=== PATIENT | female | born 1970 | race African-American/Black ===

== ENCOUNTER 2016-07-16 12:24 | Emergency (ER) | payer OTHER ==
[~2016-07-16] VITALS: Ht 172.7 cm; Wt 129.3 kg
[~2016-07-16 12:24] MED LIST: CIPR-173 PO; PRO20T; TRAM50TA2 PO
[2016-07-16 14:05] LABS: Basophils # (auto) 0.1 uL; Basophils % (auto) 0.8 % (0.0-2.0); Eosinophils # (auto) 0.2 uL; Eosinophils % (auto) 2.6 % (0.0-7.0); Hematocrit 39.1 % (36.0-46.0); Hemoglobin 12.9 g/dL (12.2-16.2); Lymphocytes # (auto) 2.6 uL; Lymphocytes % (auto) 39.8 % (10.0-50.0); Mean Corpuscular Hemoglobin 27.6 pg (28.0-32.0); Mean Corpuscular Hgb Conc. 32.9 g/dL (32.0-36.0); Mean Corpuscular Volume 83.7 fL (80.0-100.0); Mean Platelet Volume 7.9 fL (7.4-10.4); Monocytes # (auto) 0.3 uL; Monocytes % (auto) 5.2 % (0.0-12.0); Neutrophils # (auto) 3.3 uL; Neutrophils % (auto) 51.6 % (37.0-80.0); Platelet Count (auto) 529 10^3/uL (140-450); Red Cell Distribution Width 15.5 % (11.6-16.0); White Blood Cell 6.4 10^3/uL (4.4-10.8)
[2016-07-16 14:26] LABS: BUN/Creatinine Ratio 12.1; Calcium 8.9 mg/dL (8.5-10.1); Potassium 3.9 mmol/L (3.5-5.1)
[2016-07-17] VITALS: BP 155/95
== END 2016-07-17 01:01 | disposition home or self-care (01) ==
LOC: ER 12:24
DX: M79.7 Fibromyalgia (principal); M54.9 Dorsalgia, unspecified; G89.29 Other chronic pain; I10 Essential (primary) hypertension; J45.909 Unspecified asthma, uncomplicated; M19.90 Unspecified osteoarthritis, unspecified site; Z98.51 Tubal ligation status
CPT/HCPCS: 36415; 80048; 85025

== ENCOUNTER 2016-09-25 21:00 | Emergency (ER) | payer OTHER ==
[~2016-09-25] VITALS: Ht 175.3 cm; Wt 131.5 kg
[2016-09-25 21:15] VITALS: BP 140/94
[2016-09-25] MEDS ORDERED: IBUPROFEN 600 MG TAB PO ONE (22:30)
== END 2016-09-25 22:36 | disposition home or self-care (01) ==
LOC: ER 21:05
DX: L73.9 Follicular disorder, unspecified (principal); I10 Essential (primary) hypertension; J45.909 Unspecified asthma, uncomplicated

== ENCOUNTER 2018-07-16 18:20 | Emergency (ER) | payer OTHER ==
[~2018-07-16] VITALS: Ht 175.3 cm; Wt 90.7 kg
[2018-07-16 18:45] VITALS: BP 172/84
[2018-07-16] MEDS ORDERED: NAPROXEN 500 MG TAB PO ONE (22:00)
[2018-07-16 22:09] LABS: Basophils % (auto) 0.7 % (0.0-2.0); Eosinophils # (auto) 0.2 uL; Lymphocytes # (auto) 2.2 uL; Monocytes # (auto) 0.5 uL
[2018-07-16 22:11] LABS: Basophils # (auto) 0.1 uL; Eosinophils % (auto) 2.1 % (0.0-7.0); Hematocrit 35.4 % (36.0-46.0); Hemoglobin 11.5 g/dL (12.2-16.2); Lymphocytes % (auto) 30.7 % (10.0-50.0); Mean Corpuscular Hemoglobin 26.6 pg (28.0-32.0); Mean Corpuscular Hgb Conc. 32.6 g/dL (32.0-36.0); Mean Corpuscular Volume 81.6 fL (80.0-100.0); Monocytes % (auto) 6.5 % (0.0-12.0); Neutrophils # (auto) 4.3 uL; Platelet Count (auto) 444 10^3/uL (140-450); Red Blood Cells 4.34 10^6/uL (4.0-5.20); Red Cell Distribution Width 16.1 % (11.8-14.3); White Blood Cell 7.1 10^3/uL (4.4-10.8)
[2018-07-16 22:30] LABS: Albumin 3.2 g/dL (3.4-5.0); BUN/Creatinine Ratio 16.7; Calcium 8.7 mg/dL (8.5-10.1); Potassium 3.9 mmol/L (3.5-5.1); Uric Acid 5.3 mg/dL (2.6-6.0)
[2018-07-16 22:32] LABS: Bilirubin, Total 0.1 mg/dL (0.2-1.0); Total Protein 7.9 g/dL (6.4-8.2)
== END 2018-07-16 23:33 | disposition home or self-care (01) ==
LOC: ER 18:20
DX: M79.662 Pain in left lower leg (principal); M79.661 Pain in right lower leg; J45.909 Unspecified asthma, uncomplicated; I10 Essential (primary) hypertension; Z98.51 Tubal ligation status; Z79.899 Other long term (current) drug therapy
CPT/HCPCS: 36415; 73600; 80053; 84550; 85025; 93970

== ENCOUNTER 2019-05-10 10:54 | Emergency (ER) | payer OTHER ==
[~2019-05-10] VITALS: Ht 175.3 cm; Wt 131.5 kg
[2019-05-10 11:20] VITALS: BP 163/92
[2019-05-10] MEDS ORDERED: KETOROLAC TROMETH 60MG/2ML VIAL IM ONE (12:45)
== END 2019-05-10 13:54 | disposition home or self-care (01) ==
LOC: ER 10:59
DX: M54.42 Lumbago with sciatica, left side (principal); I10 Essential (primary) hypertension; J45.909 Unspecified asthma, uncomplicated; Z98.51 Tubal ligation status
CPT/HCPCS: 72100; 96372; 99283; J1885

== ENCOUNTER → 2019-10-21 | Emergency (ER) | payer OTHER ==
[~2019-10-21] VITALS: Ht 172.7 cm; Wt 125.2 kg
[2019-10-21 17:05] LABS: Basophils # (auto) 0.2 10 ^3/uL (0-0.2); Eosinophils # (auto) 0.1 10 ^3/uL (0-0.8); Eosinophils % (auto) 1.5 % (0.0-7.0); Lymphocytes # (auto) 2.3 10 ^3/uL (0.4-5.4); Nucleated Red Blood Cells % 0.1 %; Red Cell Distribution Width 17.7 % (11.8-14.3)
[2019-10-21 17:08] LABS: Basophils % (auto) 2.5 % (0.0-2.0); Hematocrit 36.3 % (36.0-46.0); Lymphocytes % (auto) 34.6 % (10.0-50.0); Mean Corpuscular Hemoglobin 25.1 pg (28.0-32.0); Mean Corpuscular Hgb Conc. 33.2 g/dL (32.0-36.0); Mean Corpuscular Volume 75.6 fL (80.0-100.0); Monocytes # (auto) 0.5 10 ^3/uL (0-1.3); Monocytes % (auto) 7.1 % (0.0-12.0); Neutrophils # (auto) 3.6 10 ^3/uL (1.6-8.6); Neutrophils % (auto) 54.3 % (37.0-80.0); Platelet Count (auto) 547 10^3/uL (140-450); White Blood Cell 6.6 10^3/uL (4.4-10.8)
[2019-10-21 17:25] LABS: Albumin 3.5 g/dL (3.4-5.0); Anion Gap 4 (5-15); Blood Urea Nitrogen 10 mg/dL (7-18); Calcium 8.8 mg/dL (8.5-10.1); Carbon Dioxide 25 mmol/L (21-32); Chloride 107 mmol/L (98-107); Glucose 84 mg/dL (74-106); Magnesium 2.2 mg/dL (1.6-2.6); Potassium 3.7 mmol/L (3.5-5.1); Sodium 136 mmol/L (136-145)
[2019-10-21 17:31] LABS: Alanine Aminotransferase 16 U/L (13-56); Alkaline Phosphatase 67 U/L (45-117); Aspartate Aminotransferase 9 U/L (15-37); BUN/Creatinine Ratio 10.5; Bilirubin, Total 0.2 mg/dL (0.2-1.0); GFR African American 80 mL/min; GFR Non-African American 66 mL/min; Total Protein 8.5 g/dL (6.4-8.2)
[2019-10-21 18:58] LABS: Urine Bacteria FEW /hpf (None Seen); Urine Blood Negative /uL (Negative); Urine Specific Gravity 1.005 (1.001-1.035); Urine WBC 1 /hpf (0 - 5)
[2019-10-21 19:33] VITALS: BP 178/98
== END | disposition home or self-care (01) ==
LOC: ER 16:27
DX: R07.89 Other chest pain (principal); I10 Essential (primary) hypertension; J45.909 Unspecified asthma, uncomplicated
CPT/HCPCS: 36415; 71046; 80053; 81001; 82962; 83735; 83880; 84443; 84484; 85025; 93005

== ENCOUNTER 2020-08-16 08:05 | Inpatient (IN) | payer OTHER ==
[~2020-08-16] VITALS: Ht 175.3 cm; Wt 117.9 kg
[2020-08-16] MEDS ORDERED: SODIUM CHLORIDE 0.9% 1,000 ML IV ONE ×2 (08:30)
[2020-08-16 08:56] LABS: Basophils # (auto) 0.1 10 ^3/uL (0-0.2); Basophils % (auto) 1.2 % (0.0-2.0); Eosinophils # (auto) 0.1 10 ^3/uL (0-0.8); Eosinophils % (auto) 2.3 % (0.0-7.0); Hematocrit 29.2 % (36.0-46.0); Hemoglobin 9.7 g/dL (12.2-16.2); Lymphocytes # (auto) 1.7 10 ^3/uL (0.4-5.4); Lymphocytes % (auto) 31.6 % (10.0-50.0); Mean Corpuscular Hemoglobin 25.5 pg (28.0-32.0); Mean Corpuscular Hgb Conc. 33.2 g/dL (32.0-36.0); Mean Corpuscular Volume 76.9 fL (80.0-100.0); Monocytes # (auto) 0.4 10 ^3/uL (0-1.3); Monocytes % (auto) 7.1 % (0.0-12.0); Neutrophils % (auto) 57.8 % (37.0-80.0); Nucleated Red Blood Cells % 0.1 %; Platelet Count (auto) 424 10^3/uL (140-450); Red Cell Distribution Width 17.3 % (11.8-14.3); White Blood Cell 5.2 10^3/uL (4.4-10.8)
[2020-08-16 09:12] LABS: Alanine Aminotransferase 14 U/L (13-56); Albumin 3.2 g/dL (3.4-5.0); Anion Gap 4 (5-15); Blood Urea Nitrogen 9 mg/dL (7-18); Calcium 8.2 mg/dL (8.5-10.1); Carbon Dioxide 25 mmol/L (21-32); Chloride 108 mmol/L (98-107); GFR African American 115 mL/min; GFR Non-African American 95 mL/min; Glucose 93 mg/dL (74-106); Potassium 3.9 mmol/L (3.5-5.1); Sodium 137 mmol/L (136-145)
[2020-08-16 09:17] LABS: Alkaline Phosphatase 58 U/L (45-117); Aspartate Aminotransferase 9 U/L (15-37); Bilirubin, Total 0.2 mg/dL (0.2-1.0); Total Protein 7.3 g/dL (6.4-8.2)
[2020-08-16 10:59] LABS: Urine Bacteria NONE SEEN /hpf (None Seen); Urine Blood Negative /uL (Negative); Urine Specific Gravity 1.015 (1.001-1.035); Urine WBC 1 /hpf (0 - 5)
[2020-08-16] MEDS ORDERED: ONDANSETRON HCL 4 MG/2 ML VIAL IV PRN (11:45)
[2020-08-16] MEDS ORDERED: NITROGLYCERIN 0.4 MG SL TAB SL PRN (11:45)
[2020-08-16] MEDS ORDERED: MORPHINE SULF INJ 2 MG/ML SYRINGE 1ML IV PRN ×2 (11:45)
[2020-08-16] MEDS ORDERED: FAMOTIDINE 20 MG TAB PO ONE (12:00)
[2020-08-16] MEDS ORDERED: PANTOPRAZOLE 40 MG TAB PO ONE (12:00)
[2020-08-16] MEDS: amLODIPine BESYLATE 5 MG TAB PO SCH (12:47)
[2020-08-16] MEDS: ACETAMINOPHEN 500 MG TAB PO PRN ×2 (12:47→21:43)
[2020-08-16 15:05] LABS: Folate (Folic Acid) 13.37 ng/mL (5.38-24)
[2020-08-16 18:24] VITALS: BP 158/79
[2020-08-16] MEDS ORDERED: LORazepam 2MG/ML-1ML VIAL IV PRN (21:45)
[2020-08-16 22:00] VITALS: BP 145/83
[2020-08-17 05:00] VITALS: BP 134/82
[2020-08-17 09:00] VITALS: BP 134/78
[2020-08-17] MEDS: FAMOTIDINE 20 MG TAB PO SCH (09:29)
[2020-08-17] MEDS: amLODIPine BESYLATE 5 MG TAB PO SCH (09:30)
[2020-08-17] MEDS: PANTOPRAZOLE 40 MG TAB PO SCH (09:30)
[2020-08-17] MEDS: ACETAMINOPHEN 500 MG TAB PO PRN (09:30)
[2020-08-17] MEDS: HYDROcodone-ACET 5/325MG TAB PO PRN ×2 (15:32→22:13)
[2020-08-17 17:00] VITALS: BP 135/76
[2020-08-17 22:00] VITALS: BP 145/90
[2020-08-17] MEDS: ATORVASTATIN 20 MG TAB PO SCH (22:05)
[2020-08-18 05:00] VITALS: BP 146/86
[2020-08-18 09:07] VITALS: BP 138/93
[2020-08-18] MEDS: PANTOPRAZOLE 40 MG TAB PO SCH (09:59)
[2020-08-18] MEDS: FAMOTIDINE 20 MG TAB PO SCH (09:59)
[2020-08-18] MEDS: ASPirin-EC 81 mg tab PO SCH (09:59)
[2020-08-18] MEDS: amLODIPine BESYLATE 5 MG TAB PO SCH (10:00)
[2020-08-18] MEDS: HYDROcodone-ACET 5/325MG TAB PO PRN (10:00)
[2020-08-18 13:00] VITALS: BP 126/73
[2020-08-18 13:31] LABS: Cholesterol 159 mg/dL (< 200); HDL Cholesterol 65 mg/dL (40-59); LDL Cholesterol 83 mg/dL (< 100); Triglycerides 51 mg/dL (< 150)
[2020-08-18 16:58] VITALS: BP 135/83
[2020-08-18 22:00] VITALS: BP 160/82
[2020-08-18] MEDS: ATORVASTATIN 20 MG TAB PO SCH (23:02)
[2020-08-19 05:00] VITALS: BP 141/90
[2020-08-19 08:00] VITALS: BP 138/76
[2020-08-19 08:44] VITALS: BP 138/76
[2020-08-19] MEDS: amLODIPine BESYLATE 5 MG TAB PO SCH (08:59)
[2020-08-19] MEDS: FAMOTIDINE 20 MG TAB PO SCH (08:59)
[2020-08-19] MEDS: ASPirin-EC 81 mg tab PO SCH (08:59)
[2020-08-19] MEDS: ACETAMINOPHEN 500 MG TAB PO PRN (09:00)
[2020-08-19] MEDS: PANTOPRAZOLE 40 MG TAB PO SCH (09:00)
[2020-08-19 12:31] VITALS: BP 131/77
== END 2020-08-19 14:40 | disposition home or self-care (01) | DRG 199 ==
LOC: ER 08:05 → EDBD 08:05 → TELE 08:06 → TELE-EAST 18:33
PROVIDERS: ADMIT Nurse Practitioner Acute Care; ATTEND Family Medicine
DX: I16.9 Hypertensive crisis, unspecified (principal); E66.01 Morbid (severe) obesity due to excess calories; I11.9 Hypertensive heart disease without heart failure; Z20.822 Contact with and (suspected) exposure to COVID-19; D50.9 Iron deficiency anemia, unspecified; J45.909 Unspecified asthma, uncomplicated; E78.5 Hyperlipidemia, unspecified; Z98.51 Tubal ligation status; Z79.899 Other long term (current) drug therapy; Z82.49 Family history of ischemic heart disease and other diseases of the circulatory system; Z91.14 Patient's other noncompliance with medication regimen; Z68.38 Body mass index [BMI] 38.0-38.9, adult; R55 Syncope and collapse
CPT/HCPCS: 36415; 70450; 70551; 71045; 80053; 80061; 81001; 82607; 82746; 83540; 83550; 84443; 84484; 85025; 87426; 93005; 93306; 93886; 95819; 96360; 96361; G0378

== ENCOUNTER 2021-07-02 10:26 | Inpatient (IN) | payer OTHER ==
[~2021-07-02] VITALS: Ht 175.3 cm; Wt 127.2 kg
[2021-07-02] MEDS ORDERED: HYDROmorphone HCL 2 MG/ML VL IV ONE ×2 (11:30→15:15)
[2021-07-02] MEDS ORDERED: SODIUM CHLORIDE 0.9% 500 ML IVB ONE (11:30)
[2021-07-02] MEDS ORDERED: SODIUM CHLORIDE 0.9% 1,000 ML IV ONE (11:30)
[2021-07-02] MEDS ORDERED: METOCLOPRAMIDE HCL 5MG/ml INJ 2ml VIAL IV ONE (11:30)
[2021-07-02 11:32] LABS: Basophils # (auto) 0 10 ^3/uL (0-0.2); Eosinophils # (auto) 0 10 ^3/uL (0-0.8); Lymphocytes # (auto) 0.7 10 ^3/uL (0.4-5.4); Monocytes # (auto) 0.2 10 ^3/uL (0-1.3); Red Blood Cells 4.12 10^6/uL (4.0-5.20); Red Cell Distribution Width 16.2 % (11.8-14.3)
[2021-07-02 11:33] LABS: Basophils % (auto) 0.2 % (0.0-2.0); Eosinophils % (auto) 0.1 % (0.0-7.0); Hematocrit 33.8 % (36.0-46.0); Mean Corpuscular Hemoglobin 26.8 pg (28.0-32.0); Mean Corpuscular Hgb Conc. 32.7 g/dL (32.0-36.0); Mean Corpuscular Volume 81.9 fL (80.0-100.0); Monocytes % (auto) 1.1 % (0.0-12.0); Neutrophils # (auto) 15.4 10 ^3/uL (1.6-8.6); Neutrophils % (auto) 94.6 % (37.0-80.0); White Blood Cell 16.3 10^3/uL (4.4-10.8)
[2021-07-02 11:49] LABS: Calcium 8.8 mg/dL (8.5-10.1); Potassium 3.9 mmol/L (3.5-5.1)
[2021-07-02 11:50] LABS: Amylase 32 U/L (25-115); Lipase 80 U/L (73-393)
[2021-07-02 11:58] LABS: BUN/Creatinine Ratio 8.3; Bilirubin, Total 0.8 mg/dL (0.2-1.0)
[2021-07-02] MEDS ORDERED: cefTRIAXone 1GM/50ML D5W 50 ML IV ONE (13:15)
[2021-07-02 15:07] LABS: Urine Bacteria FEW /hpf (None Seen); Urine Blood TRACE /uL (Negative); Urine Mucus FEW (None Seen); Urine Specific Gravity 1.014 (1.001-1.035); Urine WBC 99 /hpf (0 - 5)
[2021-07-02] MEDS ORDERED: ONDANSETRON HCL 4 MG/2 ML VIAL ONE (16:25)
[2021-07-02] MEDS ORDERED: ONDANSETRON HCL 4 MG/2 ML VIAL IV ONE (16:45)
[2021-07-02] MEDS ORDERED: MORPHINE SULFATE INJECTION 2 MG/ML SYRG IV PRN ×2 (17:15→19:00)
[2021-07-02] MEDS ORDERED: NITROGLYCERIN 0.4 MG SL TAB SL PRN (17:15)
[2021-07-02] MEDS ORDERED: levoFLOXacin 500MG 100 ML IV ONE (18:45)
[2021-07-02] MEDS ORDERED: HYDROcodone-ACET 5/325MG TAB PO ONE (19:00)
[2021-07-02] MEDS ORDERED: SODIUM CHLORIDE 0.9% 1,000 ML IV SCH (19:00)
[2021-07-02] MEDS ORDERED: ONDANSETRON HCL 4 MG/2 ML VIAL IV PRN (19:00)
[2021-07-02] MEDS ORDERED: IPRATROPIUM BROM 0.5 MG/2.5ML INH SOL NEB ONE (19:00)
[2021-07-02] MEDS ORDERED: HYDROcodone-ACET 5/325MG TAB PO PRN (19:00)
[2021-07-02] MEDS ORDERED: hydrALAZINE HCL 20 MG/ML VL IV PRN (19:00)
[2021-07-02] MEDS ORDERED: LORazepam 0.5 MG TAB PO PRN (19:00)
[2021-07-02] MEDS ORDERED: FAMOTIDINE (10MG/ML) 2ML VL IV ONE (19:00)
[2021-07-02] MEDS ORDERED: DOCUSATE SOD 100 MG CAP PO PRN (19:00)
[2021-07-02] MEDS: ATORVASTATIN 20 MG TAB PO SCH (22:00)
[2021-07-02] MEDS ORDERED: IPRATROPIUM BROM 0.5 MG/2.5ML INH SOL NEB SCH (22:00)
[2021-07-02 23:05] VITALS: BP 124/71
[2021-07-03] MEDS ORDERED: ACET300T4 PO (01:46)
[2021-07-03] MEDS ORDERED: ONDA-144 PO (01:46)
[2021-07-03] MEDS ORDERED: PROP20TA73 PO (01:46)
[2021-07-03] MEDS ORDERED: CHOL1CAP21 PO (01:46)
[2021-07-03 02:58] VITALS: BP 124/71
[2021-07-03] MEDS: HYDROcodone-ACET 5/325MG TAB PO PRN ×2 (04:53→11:52)
[2021-07-03 05:00] VITALS: BP 118/71
[2021-07-03 07:03] LABS: Basophils # (auto) 0.1 10 ^3/uL (0-0.2); Basophils % (auto) 0.5 % (0.0-2.0); Eosinophils # (auto) 0.1 10 ^3/uL (0-0.8); Eosinophils % (auto) 0.8 % (0.0-7.0); Hematocrit 26.3 % (36.0-46.0); Hemoglobin 8.8 g/dL (12.2-16.2); Lymphocytes # (auto) 1.4 10 ^3/uL (0.4-5.4); Lymphocytes % (auto) 8.7 % (10.0-50.0); Mean Corpuscular Hemoglobin 27.3 pg (28.0-32.0); Mean Corpuscular Hgb Conc. 33.7 g/dL (32.0-36.0); Monocytes # (auto) 1.2 10 ^3/uL (0-1.3); Monocytes % (auto) 7.3 % (0.0-12.0); Neutrophils # (auto) 13.7 10 ^3/uL (1.6-8.6); Neutrophils % (auto) 82.7 % (37.0-80.0); Red Blood Cells 3.24 10^6/uL (4.0-5.20); Red Cell Distribution Width 16.1 % (11.8-14.3); White Blood Cell 16.6 10^3/uL (4.4-10.8)
[2021-07-03 07:17] LABS: Potassium 3.7 mmol/L (3.5-5.1)
[2021-07-03 08:00] LABS: Albumin 2.4 g/dL (3.4-5.0); BUN/Creatinine Ratio 10.7; Bilirubin, Total 0.3 mg/dL (0.2-1.0); CRP High Sensitivity 14.6 mg/dL (< 0.3); Calcium 8.2 mg/dL (8.5-10.1); Magnesium 2.3 mg/dL (1.6-2.6); Phosphorus 2.3 mg/dL (2.5-4.90); Total Protein 6.6 g/dL (6.4-8.2); Uric Acid 4.9 mg/dL (2.6-6.0)
[2021-07-03 09:00] VITALS: BP 121/68
[2021-07-03] MEDS: FAMOTIDINE (10MG/ML) 2ML VL IV SCH (09:48)
[2021-07-03] MEDS: levoFLOXacin 500MG 100 ML IV SCH (09:48)
[2021-07-03] MEDS: ENOXAPARIN SOD 40 MG/0.4 ML SYRINGE SC SCH (09:48)
[2021-07-03] MEDS: SODIUM CHLORIDE 0.9% 1,000 ML IV SCH ×2 (11:37→18:21)
[2021-07-03 13:00] VITALS: BP 141/86
[2021-07-03] MEDS ORDERED: KETOROLAC TROMETH 30 MG/ML 1ML VIAL IV PRN (16:30)
[2021-07-03] MEDS ORDERED: MAGNESIUM CITRATE SOLUTION 300 ML BTL PO ONE (16:30)
[2021-07-03] MEDS: KETOROLAC TROMETH 30 MG/ML 1ML VIAL IV PRN (16:45)
[2021-07-03 17:00] VITALS: BP 146/88
[2021-07-03] MEDS ORDERED: IPRATROPIUM BROM 0.5 MG/2.5ML INH SOL NEB PRN (19:37)
[2021-07-03] MEDS: LACTULOSE 20Gm/30ML SOLN PO PRN (20:52)
[2021-07-03 22:11] VITALS: BP 123/75
[2021-07-03] MEDS: PROPRANOLOL HCL 20 MG TAB PO SCH (23:16)
[2021-07-03] MEDS: ATORVASTATIN 20 MG TAB PO SCH (23:16)
[2021-07-04] MEDS: SODIUM CHLORIDE 0.9% 1,000 ML IV SCH ×3 (02:45→18:45)
[2021-07-04 05:00] VITALS: BP 146/87
[2021-07-04] MEDS: KETOROLAC TROMETH 30 MG/ML 1ML VIAL IV PRN (05:50)
[2021-07-04 09:00] VITALS: BP 143/82
[2021-07-04] MEDS: ENOXAPARIN SOD 40 MG/0.4 ML SYRINGE SC SCH (09:29)
[2021-07-04] MEDS: levoFLOXacin 500MG 100 ML IV SCH (09:29)
[2021-07-04] MEDS: FAMOTIDINE (10MG/ML) 2ML VL IV SCH (09:29)
[2021-07-04] MEDS: PROPRANOLOL HCL 20 MG TAB PO SCH ×2 (09:32→22:06)
[2021-07-04 11:45] LABS: INR 1.03 (0.9-1.15)
[2021-07-04] MEDS ORDERED: fentaNYL CITRATE 5 ML ONE (13:46)
[2021-07-04] MEDS ORDERED: MIDAZOLAM HCL 2MG/2ML 2ml VIAL (1mg/ml) ONE (13:46)
[2021-07-04] MEDS ORDERED: ONDANSETRON HCL 4 MG/2 ML VIAL ONE (14:10)
[2021-07-04] MEDS ORDERED: PROPOFOL 10 MG/ML 20 ML IV ONE (14:10)
[2021-07-04] MEDS ORDERED: FUROSEMIDE 20 MG/2 ML VIAL ONE (14:13)
[2021-07-04] MEDS ORDERED: ONDANSETRON HCL 4 MG/2 ML VIAL IV PRN (14:30)
[2021-07-04] MEDS ORDERED: MANNITOL FTV 25% 12.5 GM/50 ML 50 ML IV ONE (14:45)
[2021-07-04] MEDS: HYDROmorphone HCL 2 MG/ML VL IV PRN ×2 (15:03→15:13)
[2021-07-04 15:44] VITALS: BP 138/79
[2021-07-04 22:00] VITALS: BP 149/76
[2021-07-04] MEDS: ATORVASTATIN 20 MG TAB PO SCH (22:05)
[2021-07-05] VITALS (8 sets, daily range): BP systolic 139–159; BP diastolic 71–96
[2021-07-05] MEDS: SODIUM CHLORIDE 0.9% 1,000 ML IV SCH ×3 (02:45→15:00)
[2021-07-05 04:31] LABS: Alcohol, Urine < 3.0 mg/dL (0-10); Amphetamine Screen, Urine NEGATIVE (NEGATIVE); Barbiturate Scree,Urine NEGATIVE (NEGATIVE); Benzodiazephine Screen, Urine POSITIVE (NEGATIVE); Cannabinoid Screen, Urine NEGATIVE (NEGATIVE); Cocaine Screen, Urine NEGATIVE (NEGATIVE); Opiate Scree,Urine NEGATIVE (NEGATIVE); Phencyclidine Screen, Urine NEGATIVE (NEGATIVE)
[2021-07-05 04:32] LABS: Urine Bacteria FEW /hpf (None Seen); Urine Blood 1+ /uL (Negative); Urine Mucus FEW (None Seen); Urine Specific Gravity 1.006 (1.001-1.035); Urine WBC 17 /hpf (0 - 5); Urine WBC Clumps PRESENT /hpf (None Seen)
[2021-07-05] MEDS: levoFLOXacin 500MG 100 ML IV SCH (10:20)
[2021-07-05] MEDS: PROPRANOLOL HCL 20 MG TAB PO SCH ×2 (10:21→21:22)
[2021-07-05] MEDS: ENOXAPARIN SOD 40 MG/0.4 ML SYRINGE SC SCH (10:22)
[2021-07-05] MEDS: KETOROLAC TROMETH 30 MG/ML 1ML VIAL IV PRN (18:05)
[2021-07-06] MEDS: ATORVASTATIN 20 MG TAB PO SCH (01:31)
[2021-07-06] MEDS: SODIUM CHLORIDE 0.9% 1,000 ML IV SCH ×3 (02:25→09:46)
[2021-07-06 05:00] VITALS: BP 161/80
[2021-07-06] MEDS: LACTULOSE 20Gm/30ML SOLN PO PRN (07:31)
[2021-07-06] MEDS: KETOROLAC TROMETH 30 MG/ML 1ML VIAL IV PRN (07:31)
[2021-07-06 08:00] VITALS: BP 141/84
[2021-07-06 09:00] VITALS: BP 141/84
[2021-07-06] MEDS: levoFLOXacin 500MG 100 ML IV SCH (09:44)
[2021-07-06] MEDS: PROPRANOLOL HCL 20 MG TAB PO SCH (09:45)
[2021-07-06] MEDS: ENOXAPARIN SOD 40 MG/0.4 ML SYRINGE SC SCH (09:45)
[2021-07-06 12:24] VITALS: BP 141/84
[2021-07-06 13:00] VITALS: BP 178/97
[2021-07-06] MEDS: HYDROcodone-ACET 5/325MG TAB PO PRN (13:00)
[2021-07-06] MEDS ORDERED: cloNIDine HCL 0.1 MG TAB PO ONE (14:30)
[2021-07-06 16:12] VITALS: BP 126/66
[2021-07-07] MEDS ORDERED: TRAM50TA2 PO (10:51)
[2021-07-07] MEDS ORDERED: LEVO500T31 PO (10:51)
== END 2021-07-06 16:56 | disposition home or self-care (01) | DRG 720 ==
LOC: EDBD 10:26 → ER 10:26 → TELE 17:14 → TELE-WESTW 23:05
PROVIDERS: ADMIT Hospitalist; ATTEND Family Medicine
PROC: 0TF4XZZ Fragmentation in Left Kidney Pelvis, External Approach (ICD-10-PCS; principal; 2021-07-04 13:40)
DX: A41.9 Sepsis, unspecified organism (principal); E44.1 Mild protein-calorie malnutrition; I11.9 Hypertensive heart disease without heart failure; D25.9 Leiomyoma of uterus, unspecified; N10 Acute pyelonephritis; K59.01 Slow transit constipation; I25.10 Atherosclerotic heart disease of native coronary artery without angina pectoris; D64.9 Anemia, unspecified; E86.0 Dehydration; E66.01 Morbid (severe) obesity due to excess calories; E78.5 Hyperlipidemia, unspecified; J45.909 Unspecified asthma, uncomplicated; G43.909 Migraine, unspecified, not intractable, without status migrainosus; Z20.822 Contact with and (suspected) exposure to COVID-19; Z98.51 Tubal ligation status; Z90.49 Acquired absence of other specified parts of digestive tract; Z68.32 Body mass index [BMI] 32.0-32.9, adult
CPT/HCPCS: 36415; 71046; 74018; 74176; 76856; 80053; 80061; 80307; 81001; 82150; 82360; 82728; 83036; 83690; 83735; 83880; 83970; 84100; 84443; 84484; 84550; 85025; 85379; 85610; 85652; 86141; 87040; 87086; 93005; 96361; 96365; 96375; G0378; J0696; J1885; J1956; J2250; J2405; J2704; J3490

== ENCOUNTER 2021-09-02 08:27 | Emergency (ER) | payer OTHER ==
[~2021-09-02] VITALS: Ht 175.3 cm; Wt 113.4 kg
[2021-09-02 08:27] VITALS: BP 156/84
[~2021-09-02 08:27] MED LIST changes: +ACET300T4 PO; +CHOL1CAP21 PO; +LEVO500T31 PO; +ONDA-144 PO; -PRO20T; +PROP20TA73 PO
[2021-09-02] MEDS ORDERED: KETOROLAC TROMETH 60MG/2ML VIAL IM ONE (09:15)
[2021-09-02 09:29] LABS: Urine Bacteria NONE SEEN /hpf (None Seen); Urine Blood Negative /uL (Negative); Urine Hyaline Cast FEW /lpf (0 - 2); Urine Mucus FEW (None Seen); Urine Specific Gravity 1.025 (1.001-1.035); Urine WBC 4 /hpf (0 - 5)
[2021-09-02] MEDS ORDERED: TRAM-297 PO (09:39)
== END 2021-09-02 17:11 | disposition home or self-care (01) ==
LOC: ER 08:27
DX: G89.4 Chronic pain syndrome (principal); I10 Essential (primary) hypertension; J45.909 Unspecified asthma, uncomplicated; Z87.442 Personal history of urinary calculi; Z87.42 Personal history of other diseases of the female genital tract; Z90.49 Acquired absence of other specified parts of digestive tract; Z79.899 Other long term (current) drug therapy; Z79.2 Long term (current) use of antibiotics
CPT/HCPCS: 81001; 96372; 99283; J1885

== ENCOUNTER 2021-10-29 09:14 | Inpatient (IN) | payer OTHER ==
[~2021-10-29] VITALS: Ht 175.3 cm; Wt 121.0 kg
[~2021-10-29 09:14] MED LIST changes: +TRAM-297 PO
[2021-10-29 10:41] LABS: Urine Bacteria NONE SEEN /hpf (None Seen); Urine Blood 1+ /uL (Negative); Urine Specific Gravity 1.019 (1.001-1.035); Urine WBC 1 /hpf (0 - 5)
[2021-10-29 10:48] LABS: Basophils # (auto) 0 10 ^3/uL (0-0.2); Basophils % (auto) 0.8 % (0.0-2.0); Eosinophils # (auto) 0.2 10 ^3/uL (0-0.8); Eosinophils % (auto) 3.2 % (0.0-7.0); Hematocrit 33.6 % (36.0-46.0); Lymphocytes # (auto) 2.2 10 ^3/uL (0.4-5.4); Lymphocytes % (auto) 40.8 % (10.0-50.0); Mean Corpuscular Hemoglobin 25.8 pg (28.0-32.0); Mean Corpuscular Hgb Conc. 32.6 g/dL (32.0-36.0); Monocytes # (auto) 0.3 10 ^3/uL (0-1.3); Monocytes % (auto) 5.2 % (0.0-12.0); Neutrophils # (auto) 2.7 10 ^3/uL (1.6-8.6); Nucleated Red Blood Cells % 0.1 %; Red Blood Cells 4.25 10^6/uL (4.0-5.20); Red Cell Distribution Width 18.5 % (11.8-14.3); White Blood Cell 5.4 10^3/uL (4.4-10.8)
[2021-10-29 10:56] LABS: Albumin 3.1 g/dL (3.4-5.0); BUN/Creatinine Ratio 12.8; Calcium 8.8 mg/dL (8.5-10.1); Potassium 4.4 mmol/L (3.5-5.1)
[2021-10-29 10:58] LABS: Bilirubin, Total 0.2 mg/dL (0.2-1.0); Total Protein 7.5 g/dL (6.4-8.2)
[2021-10-29] MEDS ORDERED: KETOROLAC TROMETH 30 MG/ML 1ML VIAL IV ONE (11:00)
[2021-10-29] MEDS ORDERED: METOCLOPRAMIDE HCL 5MG/ml INJ 2ml VIAL IV ONE (11:00)
[2021-10-29] MEDS ORDERED: SODIUM CHLORIDE 0.9% 500 ML IVB ONE (11:00)
[2021-10-29] MEDS ORDERED: SODIUM CHLORIDE 0.9% 1,000 ML IV ONE (11:00)
[2021-10-29] MEDS ORDERED: NITROGLYCERIN 0.4 MG SL TAB SL PRN (18:30)
[2021-10-29] MEDS ORDERED: MORPHINE SULFATE INJ 2 MG/ml SYRG IV PRN (18:30)
[2021-10-29] MEDS ORDERED: ACETAMINOPHEN 500 MG TAB PO PRN (19:00)
[2021-10-29] MEDS ORDERED: PROMETHAZINE HCL 25 MG/ML 1ML IV PRN (19:00)
[2021-10-29] MEDS ORDERED: cefTRIAXone 1GM/50ML D5W 50 ML IV ONE (19:00)
[2021-10-29] MEDS ORDERED: TEMAZEPAM 15 MG CAP PO PRN (19:00)
[2021-10-29] MEDS ORDERED: traMADol HCL 50 MG TAB PO PRN (19:00)
[2021-10-29] MEDS: SODIUM CHLORIDE 0.9% 1,000 ML IV SCH (20:27)
[2021-10-29] MEDS: metroNIDAZOLE 500MG/100ML 100 ML IV SCH (22:54)
[2021-10-29 23:33] VITALS: BP 148/84
[2021-10-29] MEDS ORDERED: ATOR40TA52 PO (23:46)
[2021-10-29] MEDS ORDERED: LOSA-69 PO (23:46)
[2021-10-29] MEDS ORDERED: HYDR1SOL36 (23:46)
[2021-10-29] MEDS ORDERED: ALBU108A5 INH (23:46)
[2021-10-29] MEDS ORDERED: ASPI-325 PO (23:46)
[2021-10-30] MEDS: SODIUM CHLORIDE 0.9% 1,000 ML IV SCH ×4 (01:15→21:40)
[2021-10-30 05:00] VITALS: BP 150/78
[2021-10-30] MEDS: metroNIDAZOLE 500MG/100ML 100 ML IV SCH ×3 (05:16→21:58)
[2021-10-30 07:56] LABS: Basophils # (auto) 0.1 10 ^3/uL (0-0.2); Basophils % (auto) 1.2 % (0.0-2.0); Eosinophils # (auto) 0.2 10 ^3/uL (0-0.8); Eosinophils % (auto) 3.5 % (0.0-7.0); Hematocrit 31.9 % (36.0-46.0); Hemoglobin 10.6 g/dL (12.2-16.2); Lymphocytes # (auto) 1.5 10 ^3/uL (0.4-5.4); Lymphocytes % (auto) 27.9 % (10.0-50.0); Mean Corpuscular Hemoglobin 26.2 pg (28.0-32.0); Mean Corpuscular Hgb Conc. 33.4 g/dL (32.0-36.0); Mean Corpuscular Volume 78.6 fL (80.0-100.0); Monocytes # (auto) 0.3 10 ^3/uL (0-1.3); Monocytes % (auto) 6.1 % (0.0-12.0); Neutrophils # (auto) 3.3 10 ^3/uL (1.6-8.6); Neutrophils % (auto) 61.3 % (37.0-80.0); Red Blood Cells 4.06 10^6/uL (4.0-5.20); Red Cell Distribution Width 18.1 % (11.8-14.3); White Blood Cell 5.5 10^3/uL (4.4-10.8)
[2021-10-30 08:04] LABS: Albumin 2.9 g/dL (3.4-5.0); Calcium 8.6 mg/dL (8.5-10.1); Potassium 3.8 mmol/L (3.5-5.1)
[2021-10-30 08:15] LABS: BUN/Creatinine Ratio 8.6; Bilirubin, Total 0.3 mg/dL (0.2-1.0)
[2021-10-30] MEDS: cefTRIAXone 1GM/50ML D5W 50 ML IV SCH (08:56)
[2021-10-30 09:00] VITALS: BP 133/82
[2021-10-30] MEDS: MORPHINE SULFATE INJ 2 MG/ml SYRG IV PRN ×3 (09:05→22:08)
[2021-10-30] MEDS ORDERED: ASPirin 81 mg TAB PO ONE (11:30)
[2021-10-30] MEDS ORDERED: LOSARTAN POTASSIUM 50 MG TAB PO ONE (11:30)
[2021-10-30 13:00] VITALS: BP 111/82
[2021-10-30 17:00] VITALS: BP 135/77
[2021-10-30] MEDS: DOCUSATE SOD 100 MG CAP PO SCH (21:56)
[2021-10-30] MEDS: LOSARTAN POTASSIUM 50 MG TAB PO SCH (21:57)
[2021-10-30 22:00] VITALS: BP 133/72
[2021-10-30] MEDS ORDERED: ATORVASTATIN 20 MG TAB PO SCH (22:00)
[2021-10-31 05:00] VITALS: BP 136/78
[2021-10-31] MEDS: SODIUM CHLORIDE 0.9% 1,000 ML IV SCH ×2 (05:51→11:00)
[2021-10-31] MEDS: metroNIDAZOLE 500MG/100ML 100 ML IV SCH (05:51)
[2021-10-31 06:41] LABS: Cholesterol 96 mg/dL (< 200); HDL Cholesterol 60 mg/dL (40-59); LDL Cholesterol 37 mg/dL (< 100); Lipase 137 U/L (73-393); Triglycerides 27 mg/dL (< 150)
[2021-10-31 08:00] VITALS: BP 139/77
[2021-10-31 08:37] VITALS: BP 139/77
[2021-10-31] MEDS: cefTRIAXone 1GM/50ML D5W 50 ML IV SCH (09:43)
[2021-10-31] MEDS: DOCUSATE SOD 100 MG CAP PO SCH (09:43)
[2021-10-31] MEDS: MORPHINE SULFATE INJ 2 MG/ml SYRG IV PRN (09:44)
[2021-10-31] MEDS: LOSARTAN POTASSIUM 50 MG TAB PO SCH (09:44)
[2021-10-31] MEDS ORDERED: ASPirin 81 mg TAB PO SCH (10:00)
[2021-10-31] MEDS ORDERED: HYDR-4902 PO (12:17)
[2021-10-31 13:07] VITALS: BP 139/77
[2021-10-31 13:10] VITALS: BP 126/76
== END 2021-10-31 14:08 | disposition home or self-care (01) | DRG 282 ==
LOC: ER 09:14 → OVERFLOW 18:21 → WEST WING 23:28
PROVIDERS: ADMIT Internal Medicine; ATTEND Family Medicine
DX: K85.90 Acute pancreatitis without necrosis or infection, unspecified (principal); D25.9 Leiomyoma of uterus, unspecified; N20.0 Calculus of kidney; D64.9 Anemia, unspecified; I10 Essential (primary) hypertension; E78.5 Hyperlipidemia, unspecified; Z20.822 Contact with and (suspected) exposure to COVID-19; J45.909 Unspecified asthma, uncomplicated; R31.29 Other microscopic hematuria; K59.01 Slow transit constipation; Z82.49 Family history of ischemic heart disease and other diseases of the circulatory system; Z87.442 Personal history of urinary calculi; Z98.51 Tubal ligation status; Z90.49 Acquired absence of other specified parts of digestive tract; Z86.73 Personal history of transient ischemic attack (TIA), and cerebral infarction without residual deficits; Z68.38 Body mass index [BMI] 38.0-38.9, adult
CPT/HCPCS: 36415; 71046; 74176; 76705; 76856; 80053; 80061; 81001; 82150; 83690; 83735; 85025; 86038; 96361; 96365; 96375; G0378; J0696; J1885; J3490

== ENCOUNTER 2021-11-04 18:44 | Emergency (ER) | payer OTHER ==
[~2021-11-04] VITALS: Ht 175.3 cm; Wt 104.3 kg
[~2021-11-04 18:44] MED LIST changes: +ALBU108A5 INH; +ASPI-325 PO; +ATOR40TA52 PO; -CIPR-173 PO; +HYDR-4902 PO; +HYDR1SOL36; -LEVO500T31 PO; +LOSA-69 PO; -PROP20TA73 PO
[2021-11-04] MEDS ORDERED: ACETAMINOPHEN 325 MG TAB PO ONE (20:00)
[2021-11-04 20:32] LABS: Eosinophils # (auto) 0 10 ^3/uL (0-0.8); Lymphocytes # (auto) 0.8 10 ^3/uL (0.4-5.4); Monocytes # (auto) 0.5 10 ^3/uL (0-1.3); Red Blood Cells 4.17 10^6/uL (4.0-5.20)
[2021-11-04 20:34] LABS: Basophils # (auto) 0 10 ^3/uL (0-0.2); Basophils % (auto) 0.7 % (0.0-2.0); Eosinophils % (auto) 0.5 % (0.0-7.0); Hematocrit 32.5 % (36.0-46.0); Lymphocytes % (auto) 15.1 % (10.0-50.0); Mean Corpuscular Hemoglobin 26.3 pg (28.0-32.0); Mean Corpuscular Hgb Conc. 33.8 g/dL (32.0-36.0); Mean Corpuscular Volume 77.7 fL (80.0-100.0); Neutrophils # (auto) 3.8 10 ^3/uL (1.6-8.6); Neutrophils % (auto) 73.7 % (37.0-80.0); Red Cell Distribution Width 19.2 % (11.8-14.3); White Blood Cell 5.1 10^3/uL (4.4-10.8)
[2021-11-04 20:44] LABS: Albumin 3.1 g/dL (3.4-5.0); Calcium 8.8 mg/dL (8.5-10.1); Potassium 3.5 mmol/L (3.5-5.1)
[2021-11-04 20:46] LABS: BUN/Creatinine Ratio 7.4
[2021-11-04 20:49] LABS: Bilirubin, Total 0.2 mg/dL (0.2-1.0); Total Protein 7.5 g/dL (6.4-8.2)
[2021-11-04 22:24] LABS: Urine Bacteria NONE SEEN /hpf (None Seen); Urine Blood Negative /uL (Negative); Urine Specific Gravity 1.029 (1.001-1.035); Urine WBC 4 /hpf (0 - 5)
[2021-11-05] MEDS ORDERED: IBUPROFEN 800 MG TAB PO ONE (05:30)
[2021-11-05] MEDS ORDERED: METOCLOPRAMIDE HCL 5MG/ml INJ 2ml VIAL IM ONE (08:15)
[2021-11-05] MEDS ORDERED: KETOROLAC TROMETH 60MG/2ML VIAL IM ONE (08:15)
[2021-11-05] MEDS ORDERED: TRAM50TA2 PO ×2 (08:58→10:07)
[2021-11-05] MEDS ORDERED: NAP500T PO (08:58)
[2021-11-05 10:29] VITALS: BP 128/74
== END 2021-11-05 10:34 | disposition home or self-care (01) ==
LOC: ER 18:44
DX: R10.11 Right upper quadrant pain (principal); E78.5 Hyperlipidemia, unspecified; I10 Essential (primary) hypertension; D25.1 Intramural leiomyoma of uterus; E44.1 Mild protein-calorie malnutrition; Z68.34 Body mass index [BMI] 34.0-34.9, adult; Z87.442 Personal history of urinary calculi; J45.909 Unspecified asthma, uncomplicated; Z98.51 Tubal ligation status; Z86.73 Personal history of transient ischemic attack (TIA), and cerebral infarction without residual deficits
CPT/HCPCS: 36415; 80053; 81001; 83690; 85025; 93005; 96372; 99284; J1885; J2765

== ENCOUNTER 2022-01-28 12:18 | Emergency (ER) | payer OTHER ==
[~2022-01-28] VITALS: Ht 175.3 cm; Wt 245.0 kg
[~2022-01-28 12:18] MED LIST changes: +NAP500T PO
[2022-01-28 14:04] LABS: Basophils # (auto) 0.1 10 ^3/uL (0-0.2); Eosinophils # (auto) 0.1 10 ^3/uL (0-0.8); Eosinophils % (auto) 2.2 % (0.0-7.0); Hematocrit 37.2 % (36.0-46.0); Hemoglobin 12.2 g/dL (12.2-16.2); Lymphocytes # (auto) 1.7 10 ^3/uL (0.4-5.4); Lymphocytes % (auto) 31.4 % (10.0-50.0); Mean Corpuscular Hemoglobin 28.2 pg (28.0-32.0); Mean Corpuscular Hgb Conc. 32.8 g/dL (32.0-36.0); Mean Corpuscular Volume 85.8 fL (80.0-100.0); Monocytes # (auto) 0.5 10 ^3/uL (0-1.3); Monocytes % (auto) 9.1 % (0.0-12.0); Neutrophils % (auto) 56.3 % (37.0-80.0); Nucleated Red Blood Cells % 0.2 %; Red Blood Cells 4.34 10^6/uL (4.0-5.20); Red Cell Distribution Width 19.3 % (11.8-14.3); White Blood Cell 5.4 10^3/uL (4.4-10.8)
[2022-01-28 14:20] LABS: Calcium 8.9 mg/dL (8.5-10.1); Potassium 4.1 mmol/L (3.5-5.1)
[2022-01-28 14:23] LABS: Urine Bacteria FEW /hpf (None Seen); Urine Blood Negative /uL (Negative); Urine Mucus FEW (None Seen); Urine Specific Gravity 1.021 (1.001-1.035); Urine WBC 655 /hpf (0 - 5)
[2022-01-28 14:30] VITALS: BP 118/67
[2022-01-28] MEDS ORDERED: cefTRIAXone SOD 1,000 MG VL IM ONE (15:15)
[2022-01-28] MEDS ORDERED: PHENAZOPYRIDINE HCL 100 MG TAB PO ONE (15:15)
[2022-01-28] MEDS ORDERED: PHEN200T16 PO (15:46)
[2022-01-28] MEDS ORDERED: BACDST PO (15:46)
== END 2022-01-28 15:56 | disposition home or self-care (01) ==
LOC: ER 12:18
DX: N39.0 Urinary tract infection, site not specified (principal); I10 Essential (primary) hypertension; E78.5 Hyperlipidemia, unspecified; J45.909 Unspecified asthma, uncomplicated; Z86.73 Personal history of transient ischemic attack (TIA), and cerebral infarction without residual deficits; Z90.49 Acquired absence of other specified parts of digestive tract; Z79.82 Long term (current) use of aspirin; Z79.899 Other long term (current) drug therapy
CPT/HCPCS: 36415; 80048; 81001; 85025; 96372; 99283; J0696

== ENCOUNTER 2022-03-16 08:50 | Emergency (ER) | payer OTHER ==
[~2022-03-16] VITALS: Ht 172.7 cm; Wt 109.0 kg
[~2022-03-16 08:50] MED LIST changes: +BACDST PO; +PHEN200T16 PO
[2022-03-16] MEDS ORDERED: SODIUM CHLORIDE 0.9% 1,000 ML IVB ONE (09:15)
[2022-03-16] MEDS ORDERED: KETOROLAC TROMETH 30 MG/ML 1ML VIAL IV ONE (09:15)
[2022-03-16 09:27] VITALS: BP 136/75
[2022-03-16 09:44] LABS: Basophils # (auto) 0 10 ^3/uL (0-0.2); Basophils % (auto) 0.9 % (0.0-2.0); Eosinophils # (auto) 0.2 10 ^3/uL (0-0.8); Eosinophils % (auto) 3.9 % (0.0-7.0); Hematocrit 38.4 % (36.0-46.0); Hemoglobin 12.8 g/dL (12.2-16.2); Lymphocytes # (auto) 1.9 10 ^3/uL (0.4-5.4); Lymphocytes % (auto) 37.5 % (10.0-50.0); Mean Corpuscular Hemoglobin 29.9 pg (28.0-32.0); Mean Corpuscular Hgb Conc. 33.5 g/dL (32.0-36.0); Mean Corpuscular Volume 89.3 fL (80.0-100.0); Monocytes # (auto) 0.2 10 ^3/uL (0-1.3); Monocytes % (auto) 4.9 % (0.0-12.0); Neutrophils # (auto) 2.6 10 ^3/uL (1.6-8.6); Neutrophils % (auto) 52.8 % (37.0-80.0); Nucleated Red Blood Cells % 0.1 %; Red Blood Cells 4.29 10^6/uL (4.0-5.20); Red Cell Distribution Width 15.3 % (11.8-14.3)
[2022-03-16 10:00] LABS: Albumin 3.2 g/dL (3.4-5.0); Potassium 4.2 mmol/L (3.5-5.1)
[2022-03-16 10:11] LABS: BUN/Creatinine Ratio 11.9; Bilirubin, Total 0.6 mg/dL (0.2-1.0); Total Protein 7.3 g/dL (6.4-8.2)
[2022-03-16 13:23] LABS: Urine Bacteria NONE SEEN /hpf (None Seen); Urine Mucus FEW (None Seen); Urine WBC 3 /hpf (0 - 5)
[2022-03-16 13:27] LABS: Urine Blood 3+ /uL (Negative)
[2022-03-16] MEDS ORDERED: TRAM-297 PO (13:46)
[2022-03-16] MEDS ORDERED: KETOROLAC TROMETH 30 MG/ML 1ML VIAL IM ONE ×2 (15:00)
== END 2022-03-16 15:13 | disposition home or self-care (01) ==
LOC: ER 08:50
DX: R10.31 Right lower quadrant pain (principal); J45.909 Unspecified asthma, uncomplicated; I10 Essential (primary) hypertension; E78.5 Hyperlipidemia, unspecified; E03.9 Hypothyroidism, unspecified; Z86.73 Personal history of transient ischemic attack (TIA), and cerebral infarction without residual deficits; Z90.49 Acquired absence of other specified parts of digestive tract; Z90.89 Acquired absence of other organs; Z79.899 Other long term (current) drug therapy; Z79.82 Long term (current) use of aspirin
CPT/HCPCS: 36415; 74176; 80053; 81001; 83690; 85025; 93005; 96372; 99285; J1885

== ENCOUNTER 2022-12-04 10:47 | Emergency (ER) | payer OTHER ==
[~2022-12-04] VITALS: Ht 175.3 cm; Wt 115.7 kg
[~2022-12-04 10:47] MED LIST changes: -ACET300T4 PO; +ACET300T58 PO; +ASPI-498 OR; +ATOR20TA50 PO; +DICL-163 PO; -LOSA-69 PO; +LOSA50TA46 PO; +METO25TA5 PO; +PHEN-922 PO; -PHEN200T16 PO; +SUMA50TA2 PO
[2022-12-04 11:12] VITALS: BP 139/87; PULSE 76; RESP 16; TEMP 98.4; O2SAT 95
[2022-12-04] MEDS ORDERED: ACETAMINOPHEN 500 MG TAB PO ONE (12:15)
[2022-12-04] MEDS ORDERED: KETOROLAC TROMETH 30 MG/ML 1ML VIAL IM ONE (12:15)
[2022-12-04] MEDS ORDERED: CYCL-837 PO (12:33)
[2022-12-04] MEDS ORDERED: IBUP-1454 PO (12:33)
== END 2022-12-04 13:11 | disposition home or self-care (01) ==
LOC: ER 10:47
DX: M79.10 Myalgia, unspecified site (principal); M54.50 Low back pain, unspecified; I10 Essential (primary) hypertension; E03.9 Hypothyroidism, unspecified; E78.5 Hyperlipidemia, unspecified; J45.909 Unspecified asthma, uncomplicated; Z86.73 Personal history of transient ischemic attack (TIA), and cerebral infarction without residual deficits; Z90.49 Acquired absence of other specified parts of digestive tract; Z90.89 Acquired absence of other organs; Z79.82 Long term (current) use of aspirin; Z79.899 Other long term (current) drug therapy; V89.2XXA Person injured in unspecified motor-vehicle accident, traffic, initial encounter; Y93.89 Activity, other specified; Y92.89 Other specified places as the place of occurrence of the external cause; Y99.8 Other external cause status
CPT/HCPCS: 96372; 99283; J1885

== ENCOUNTER 2023-02-01 09:23 | Inpatient (IN) | payer OTHER ==
[2023-02-01] VITALS (8 sets, daily range): BP systolic 127–141; BP diastolic 80–90; PULSE 62–98; RESP 11–19; TEMP 97.8–98.4; O2SAT 94–98
[~2023-02-01] VITALS: Ht 172.7 cm; Wt 124.6 kg
[~2023-02-01 09:23] MED LIST changes: +CYCL-837 PO; +IBUP-1454 PO
[2023-02-01 09:57] LABS: Basophils # (auto) 0.1 10 ^3/uL (0-0.2); Basophils % (auto) 1.2 % (0.0-2.0); Eosinophils # (auto) 0.1 10 ^3/uL (0-0.8); Eosinophils % (auto) 2.9 % (0.0-7.0); Hemoglobin 13.9 g/dL (12.2-16.2); Lymphocytes # (auto) 1.8 10 ^3/uL (0.4-5.4); Lymphocytes % (auto) 39.5 % (10.0-50.0); Mean Corpuscular Hemoglobin 30.7 pg (28.0-32.0); Mean Corpuscular Hgb Conc. 34.7 g/dL (32.0-36.0); Mean Corpuscular Volume 88.5 fL (80.0-100.0); Monocytes # (auto) 0.2 10 ^3/uL (0-1.3); Monocytes % (auto) 5.5 % (0.0-12.0); Neutrophils # (auto) 2.3 10 ^3/uL (1.6-8.6); Neutrophils % (auto) 50.9 % (37.0-80.0); Nucleated Red Blood Cells % 0.1 %; Red Blood Cells 4.51 10^6/uL (4.0-5.20); Red Cell Distribution Width 14.3 % (11.8-14.3); White Blood Cell 4.4 10^3/uL (4.4-10.8)
[2023-02-01 10:15] LABS: INR 1.04 (0.9-1.15); Partial Thromboplastin Time 25.7 SEC (24.5-34.5); Prothrombin Time 10.9 sec (9.3-11.8)
[2023-02-01 10:20] LABS: Alanine Aminotransferase 15 U/L (7-40); Albumin 4.5 g/dL (3.2-4.8); Alkaline Phosphatase 83 U/L (46-116); Anion Gap 4 (5-15); Aspartate Aminotransferase 8 U/L (13-40); BUN/Creatinine Ratio 12.8 (10.0-20.0); Bilirubin, Total 0.4 mg/dL (0.2-1.0); Blood Urea Nitrogen 11 mg/dL (9-23); Calcium 9.6 mg/dL (8.7-10.4); Carbon Dioxide 28 mmol/L (20-30); Chloride 107 mmol/L (98-107); Glucose 99 mg/dL (74-106); Potassium 4.2 mmol/L (3.5-5.1); Sodium 139 mmol/L (136-145); Total Protein 7.3 g/dL (5.7-8.2)
[2023-02-01 11:44] LABS: Urine Bacteria FEW /hpf (None Seen); Urine Blood Negative /uL (Negative); Urine Clarity Clear (Clear); Urine Color Yellow (Yellow); Urine Mucus FEW (None Seen); Urine Protein, UAD Negative (Negative); Urine Specific Gravity 1.024 (1.001-1.035); Urine Urobilinogen Normal (Negative); Urine WBC 1 /hpf (0 - 5)
[2023-02-01] MEDS ORDERED: MORPHINE SULFATE INJ 2 MG/ml SYRG IV PRN (14:45)
[2023-02-01] MEDS ORDERED: NITROGLYCERIN 0.4 MG SL TAB SL PRN (14:45)
[2023-02-01] MEDS ORDERED: ACETAMINOPHEN 325 MG TAB PO PRN (14:45)
[2023-02-01] MEDS ORDERED: hydrALAZINE HCL 20 MG/ML VL IV PRN (15:00)
[2023-02-01] MEDS ORDERED: ERGOCALCIFEROL 50,000 UNIT(1.25MG) CAP PO SCH (15:00)
[2023-02-01 15:24] LABS: Triglycerides 60 mg/dL (< 150)
[2023-02-01 15:25] LABS: LDL Cholesterol 61 mg/dL (< 100)
[2023-02-01 15:26] LABS: Cholesterol 130 mg/dL (< 200); HDL Cholesterol 53 mg/dL (40-59)
[2023-02-01] MEDS: SODIUM CHLORIDE 0.9% 1,000 ML IV SCH (16:02)
[2023-02-01] MEDS: LOSARTAN POTASSIUM 50 MG TAB PO SCH (21:36)
[2023-02-01] MEDS: METOPROLOL TARTRATE 25 MG TAB PO SCH (21:37)
[2023-02-02] VITALS (9 sets, daily range): BP systolic 122–160; BP diastolic 75–100; PULSE 60–75; RESP 16–18; TEMP 97.6–98.6; O2SAT 97–100
[2023-02-02] MEDS: HYDROcodone-ACET 5/325MG TAB PO PRN (05:58)
[2023-02-02] MEDS: METOPROLOL TARTRATE 25 MG TAB PO SCH ×3 (06:01→22:00)
[2023-02-02 06:46] LABS: Alanine Aminotransferase 10 U/L (7-40); Alkaline Phosphatase 76 U/L (46-116); Anion Gap 2 (5-15); BUN/Creatinine Ratio 10.1 (10.0-20.0); Blood Urea Nitrogen 9 mg/dL (9-23); Calcium 9.4 mg/dL (8.7-10.4); Carbon Dioxide 29 mmol/L (20-30); Chloride 107 mmol/L (98-107); Glucose 107 mg/dL (74-106); Sodium 138 mmol/L (136-145)
[2023-02-02 06:47] LABS: Albumin 4.2 g/dL (3.2-4.8); Aspartate Aminotransferase < 8 U/L (13-40); Bilirubin, Total 0.4 mg/dL (0.2-1.0); Total Protein 7.1 g/dL (5.7-8.2)
[2023-02-02 07:40] LABS: Basophils # (auto) 0.1 10 ^3/uL (0-0.2); Basophils % (auto) 1.3 % (0.0-2.0); Eosinophils # (auto) 0.1 10 ^3/uL (0-0.8); Eosinophils % (auto) 2.8 % (0.0-7.0); Hematocrit 39.9 % (36.0-46.0); Hemoglobin 13.3 g/dL (12.2-16.2); Lymphocytes % (auto) 38.1 % (10.0-50.0); Mean Corpuscular Hemoglobin 30.1 pg (28.0-32.0); Mean Corpuscular Hgb Conc. 33.4 g/dL (32.0-36.0); Mean Corpuscular Volume 90.1 fL (80.0-100.0); Monocytes # (auto) 0.4 10 ^3/uL (0-1.3); Monocytes % (auto) 7.2 % (0.0-12.0); Neutrophils # (auto) 2.6 10 ^3/uL (1.6-8.6); Neutrophils % (auto) 50.6 % (37.0-80.0); Nucleated Red Blood Cells % 0.1 %; Red Blood Cells 4.43 10^6/uL (4.0-5.20); Red Cell Distribution Width 14.3 % (11.8-14.3); White Blood Cell 5.2 10^3/uL (4.4-10.8)
[2023-02-02] MEDS: ATORVASTATIN 20 MG TAB PO SCH (09:42)
[2023-02-02] MEDS: ASPirin-EC 81 mg tab PO SCH (09:42)
[2023-02-02] MEDS: ENOXAPARIN SOD 40 MG/0.4 ML SYRINGE SC SCH (09:43)
[2023-02-02] MEDS: LOSARTAN POTASSIUM 50 MG TAB PO SCH ×2 (09:43→22:00)
[2023-02-02] MEDS: SODIUM CHLORIDE 0.9% 1,000 ML IV SCH (09:45)
[2023-02-02] MEDS: SUMAtriptan SUCCINATE 25 MG TAB PO PRN (13:00)
[2023-02-02] MEDS ORDERED: MECLIZINE HCL 25 MG TAB PO PRN (15:15)
[2023-02-03] VITALS (13 sets, daily range): BP systolic 122–171; BP diastolic 59–101; PULSE 58–75; RESP 14–20; TEMP 36.9; O2SAT 96–100
[2023-02-03] MEDS: SODIUM CHLORIDE 0.9% 1,000 ML IV SCH (00:20)
[2023-02-03] MEDS: SUMAtriptan SUCCINATE 25 MG TAB PO PRN (03:57)
[2023-02-03] MEDS: METOPROLOL TARTRATE 25 MG TAB PO SCH ×3 (05:50→20:36)
[2023-02-03] MEDS: ALBUTEROL SULF 2.5 MG/0.5ML(0.5%) NEB SOLN NEB PRN (07:02)
[2023-02-03 07:05] LABS: Basophils # (auto) 0.1 10 ^3/uL (0-0.2); Basophils % (auto) 1.1 % (0.0-2.0); Eosinophils # (auto) 0.2 10 ^3/uL (0-0.8); Eosinophils % (auto) 3.4 % (0.0-7.0); Hematocrit 38.7 % (36.0-46.0); Hemoglobin 13.4 g/dL (12.2-16.2); Lymphocytes % (auto) 40.8 % (10.0-50.0); Mean Corpuscular Hemoglobin 30.6 pg (28.0-32.0); Mean Corpuscular Hgb Conc. 34.6 g/dL (32.0-36.0); Mean Corpuscular Volume 88.4 fL (80.0-100.0); Monocytes # (auto) 0.3 10 ^3/uL (0-1.3); Monocytes % (auto) 6.2 % (0.0-12.0); Neutrophils # (auto) 2.4 10 ^3/uL (1.6-8.6); Neutrophils % (auto) 48.5 % (37.0-80.0); Nucleated Red Blood Cells % 0.1 %; Red Blood Cells 4.38 10^6/uL (4.0-5.20); Red Cell Distribution Width 14.2 % (11.8-14.3)
[2023-02-03 07:15] LABS: Alanine Aminotransferase 10 U/L (7-40); Alkaline Phosphatase 79 U/L (46-116); Anion Gap 4 (5-15); Aspartate Aminotransferase < 8 U/L (13-40); BUN/Creatinine Ratio 12.8 (10.0-20.0); Blood Urea Nitrogen 11 mg/dL (9-23); Calcium 9.5 mg/dL (8.7-10.4); Carbon Dioxide 28 mmol/L (20-30); Chloride 107 mmol/L (98-107); Glucose 99 mg/dL (74-106); Potassium 4.2 mmol/L (3.5-5.1); Sodium 139 mmol/L (136-145)
[2023-02-03 07:16] LABS: Albumin 3.8 g/dL (3.2-4.8)
[2023-02-03 07:18] LABS: Bilirubin, Total 0.3 mg/dL (0.2-1.0); Total Protein 7.1 g/dL (5.7-8.2)
[2023-02-03] MEDS: LOSARTAN POTASSIUM 50 MG TAB PO SCH ×2 (08:25→20:36)
[2023-02-03] MEDS: ASPirin-EC 81 mg tab PO SCH (08:25)
[2023-02-03] MEDS: ATORVASTATIN 20 MG TAB PO SCH (08:25)
[2023-02-03] MEDS: ENOXAPARIN SOD 40 MG/0.4 ML SYRINGE SC SCH (08:25)
[2023-02-03] MEDS ORDERED: amLODIPine BESYLATE 5 MG TAB PO ONE (11:30)
[2023-02-03] MEDS: HYDROcodone-ACET 5/325MG TAB PO PRN (20:10)
[2023-02-04] VITALS (8 sets, daily range): BP systolic 125–145; BP diastolic 56–86; PULSE 56–70; RESP 16–22; TEMP 97.6–98.3; O2SAT 98–100
[2023-02-04] MEDS: METOPROLOL TARTRATE 25 MG TAB PO SCH ×2 (05:26→13:09)
[2023-02-04] MEDS: ALBUTEROL SULF 2.5 MG/0.5ML(0.5%) NEB SOLN NEB PRN (06:38)
[2023-02-04 06:48] LABS: Chloride 106 mmol/L (98-107); Potassium 4.2 mmol/L (3.5-5.1); Sodium 139 mmol/L (136-145)
[2023-02-04 06:49] LABS: Anion Gap 5 (5-15); Calcium 9.5 mg/dL (8.7-10.4); Carbon Dioxide 28 mmol/L (20-30)
[2023-02-04 06:54] LABS: BUN/Creatinine Ratio 9.8 (10.0-20.0); Blood Urea Nitrogen 8 mg/dL (9-23); Glucose 98 mg/dL (74-106)
[2023-02-04] MEDS: HYDROcodone-ACET 5/325MG TAB PO PRN (07:59)
[2023-02-04] MEDS: LOSARTAN POTASSIUM 50 MG TAB PO SCH (09:30)
[2023-02-04] MEDS: ENOXAPARIN SOD 40 MG/0.4 ML SYRINGE SC SCH (09:31)
[2023-02-04] MEDS: ASPirin-EC 81 mg tab PO SCH (09:31)
[2023-02-04] MEDS: ATORVASTATIN 20 MG TAB PO SCH (09:31)
[2023-02-04] MEDS ORDERED: amLODIPine BESYLATE 5 MG TAB PO SCH (10:00)
[2023-02-04] MEDS ORDERED: MECL1TAB32 PO (16:52)
== END 2023-02-04 19:40 | disposition home or self-care (01) | DRG 111 ==
LOC: ER 09:23 → TELE 14:45 → TELE-CENTR 18:11
PROVIDERS: ADMIT Internal Medicine
DX: H81.20 Vestibular neuronitis, unspecified ear (principal); I11.9 Hypertensive heart disease without heart failure; I69.354 Hemiplegia and hemiparesis following cerebral infarction affecting left non-dominant side; E03.9 Hypothyroidism, unspecified; E66.01 Morbid (severe) obesity due to excess calories; E78.5 Hyperlipidemia, unspecified; J45.909 Unspecified asthma, uncomplicated; H83.09 Labyrinthitis, unspecified ear; Z87.442 Personal history of urinary calculi; Z83.3 Family history of diabetes mellitus; Z68.41 Body mass index [BMI] 40.0-44.9, adult
CPT/HCPCS: 36415; 70450; 71045; 80048; 80053; 80061; 81001; 82962; 84443; 84484; 85025; 85610; 85730; 93005; 93886; 94640; 97163; G0378

== ENCOUNTER 2023-06-08 10:33 | Emergency (ER) | payer OTHER ==
[~2023-06-08] VITALS: Ht 175.3 cm; Wt 111.3 kg
[~2023-06-08 10:33] MED LIST changes: -ATOR20TA50 PO; -BACDST PO; -CYCL-837 PO; -DICL-163 PO; -HYDR-4902 PO; -IBUP-1454 PO; +MECL1TAB32 PO; -NAP500T PO; -TRAM-297 PO; -TRAM50TA2 PO
[2023-06-08] MEDS ORDERED: cloNIDine HCL 0.1 MG TAB PO ONE (11:00)
[2023-06-08 11:33] LABS: Basophils # (auto) 0.1 10 ^3/uL (0-0.2); Basophils % (auto) 1.1 % (0.0-2.0); Eosinophils # (auto) 0.2 10 ^3/uL (0-0.8); Hemoglobin 13.4 g/dL (12.2-16.2); Lymphocytes # (auto) 2.1 10 ^3/uL (0.4-5.4); Lymphocytes % (auto) 39.2 % (10.0-50.0); Mean Corpuscular Hemoglobin 29.7 pg (28.0-32.0); Mean Corpuscular Hgb Conc. 33.4 g/dL (32.0-36.0); Monocytes # (auto) 0.3 10 ^3/uL (0-1.3); Monocytes % (auto) 5.9 % (0.0-12.0); Neutrophils # (auto) 2.6 10 ^3/uL (1.6-8.6); Neutrophils % (auto) 49.8 % (37.0-80.0); Nucleated Red Blood Cells % 0.1 %; Red Cell Distribution Width 14.2 % (11.8-14.3); White Blood Cell 5.2 10^3/uL (4.4-10.8)
[2023-06-08 11:41] LABS: Chloride 107 mmol/L (98-107); Potassium 4.1 mmol/L (3.5-5.1); Sodium 140 mmol/L (136-145)
[2023-06-08 11:42] LABS: Anion Gap 2 (5-15); Carbon Dioxide 31 mmol/L (20-30)
[2023-06-08 11:43] LABS: Calcium 9.6 mg/dL (8.7-10.4)
[2023-06-08 11:47] LABS: Glucose 82 mg/dL (74-106)
[2023-06-08 11:48] LABS: BUN/Creatinine Ratio 11.2 (10.0-20.0); Blood Urea Nitrogen 10 mg/dL (9-23)
[2023-06-08 12:21] VITALS: BP 123/96; PULSE 64; RESP 16; TEMP 98.5; O2SAT 96
[2023-06-08 13:15] LABS: Urine Bacteria NONE SEEN /hpf (None Seen); Urine Blood Negative /uL (Negative); Urine Clarity Clear (Clear); Urine Color Yellow (Yellow); Urine Mucus FEW (None Seen); Urine Protein, UAD Negative (Negative); Urine Specific Gravity 1.022 (1.001-1.035); Urine Urobilinogen Normal (Negative); Urine WBC 3 /hpf (0 - 5); Urine pH 5.5 (5.0-8.0)
== END 2023-06-08 12:24 | disposition home or self-care (01) ==
LOC: ER 10:33
DX: I16.0 Hypertensive urgency (principal); R51.9 Headache, unspecified; E78.5 Hyperlipidemia, unspecified; J45.909 Unspecified asthma, uncomplicated; E03.9 Hypothyroidism, unspecified; Z86.73 Personal history of transient ischemic attack (TIA), and cerebral infarction without residual deficits; Z90.49 Acquired absence of other specified parts of digestive tract; Z90.89 Acquired absence of other organs; Z79.82 Long term (current) use of aspirin; Z79.899 Other long term (current) drug therapy
CPT/HCPCS: 36415; 70450; 80048; 81001; 85025

== ENCOUNTER 2024-01-02 20:39 | Emergency (ER) | payer OTHER ==
[~2024-01-02] VITALS: Ht 152.4 cm; Wt 126.1 kg
[~2024-01-02 20:39] MED LIST changes: +LOSA-534 PO; -LOSA50TA46 PO; +MECL-90 PO; -MECL1TAB32 PO
[2024-01-02 20:59] VITALS: BP 147/93; PULSE 95; RESP 20; O2SAT 99
[2024-01-02] MEDS ORDERED: HYD25TP TOP (23:18)
[2024-01-02] MEDS ORDERED: CETITAB29 PO (23:18)
[2024-01-02] MEDS ORDERED: CEPH500C PO (23:18)
[2024-01-02] MEDS: methylPREDNISolone SOD SUCC 125 MG/2 ML VL IM ONE (23:38)
== END 2024-01-02 23:41 | disposition home or self-care (01) ==
LOC: ER 20:39
DX: S80.862A Insect bite (nonvenomous), left lower leg, initial encounter (principal); S80.861A Insect bite (nonvenomous), right lower leg, initial encounter; I10 Essential (primary) hypertension; E78.5 Hyperlipidemia, unspecified; J45.909 Unspecified asthma, uncomplicated; Z86.73 Personal history of transient ischemic attack (TIA), and cerebral infarction without residual deficits; Z87.442 Personal history of urinary calculi; Z98.890 Other specified postprocedural states; Z79.899 Other long term (current) drug therapy; W57.XXXA Bitten or stung by nonvenomous insect and other nonvenomous arthropods, initial encounter; Y93.89 Activity, other specified; Y92.59 Other trade areas as the place of occurrence of the external cause; Y99.8 Other external cause status
CPT/HCPCS: 96372; 99283; J2919

== ENCOUNTER 2024-07-07 15:06 | Emergency (ER) | payer OTHER ==
[~2024-07-07] VITALS: Ht 175.3 cm; Wt 125.2 kg
[~2024-07-07 15:06] MED LIST changes: +CEPH500C PO; +CETITAB29 PO; +HYD25TP TOP
[2024-07-07 16:01] VITALS: BP 120/78; PULSE 72; RESP 16; TEMP 98.4; O2SAT 97
--- NOTE | 2024-07-07 16:39 | DVH ---
CLINICAL INDICATION: Chx knee pain TECHNIQUE: XY R KNEE 3V XRAY Comparison: None FINDINGS/IMPRESSION: : There is no evidence of acute fracture or dislocation. Severe tricompartmental degenerative changes. Small knee joint effusion.
[2024-07-07] MEDS ORDERED: ACET500T58 PO (17:25)
[2024-07-07] MEDS ORDERED: DICL1GEL59 EX (17:25)
[2024-07-07] MEDS ORDERED: MELO7.5T7 PO (17:25)
--- NOTE | 2024-07-07 17:25 | ED.PDOC ---
Musculoskeletal HPI Comments Pleasant 54 year old female with pertinent MHx of chronic right knee pain x 5 years presents with a chief complaint of a flare-up to the right knee that started five days ago. No trauma or injury. No fevers swelling or erythema. States the symptoms are aggravated with ambulation and pain is currently rated seven 8/10. Able to bear weight on the leg Denies trauma to the knee or recent fall Denies skin color changes around the knee Denies masses around the knee Denies popping/locking/giving out of the knee Denies fever chills night sweats nausea vomiting Denies previous surgeries to the knee nor significant injury Chief Complaint: Lower Extremity Time Seen by MD: 15:40 Primary Care Provider: SAPPHIRE Reviewed Notes: Nurses Notes, Medications, Allergies Allergies: Coded Allergies: NO KNOWN ALLERGIES (Unverified , 11/13/09) Home Meds Active Scripts Diclofenac Sodium (Topical) (Voltaren Arthritis Pain) 1 % Gel, 1 GRAMS EX QIDP for 10 Days, #60 GRAMS 0 Refills Prov:PATEL JARRELL DRAWER IN [employer] 07/07/24 Acetaminophen (Acetaminophen) 500 Mg Tab, 500 MG PO Q6HP PRN for 30 Days, #120 TAB 0 Refills Prov:PATEL JARRELL NP 07/07/24 Meloxicam (Meloxicam) 7.5 Mg Tab, 1 TAB PO BIDP PRN for 30 Days, #60 TAB 0 Refills Prov:PATEL JARRELL DRAWER [employer] 07/07/24 Hydrocortone (Hydrocortisone 2.5%) 1 Applic Ap, 1 APPLIC TOP BID, #1 CRE 0 Refills Prov:TEA KNOX 01/02/24 Cetirizine HCl (Eql All Day Allergy) 10 Mg Tab, 10 MG PO DAILY PRN, #24 TAB 0 Refills Prov:TEA KNOX 01/02/24 Cephalexin Monohydrate (Cephalexin) 500 Mg Cap, 1 CAP PO BID for 7 Days, #14 CAP 0 Refills Prov:TEA KNOX 01/02/24 Meclizine Hcl (Meclizine Hcl) 25 Mg Tab, 25 MG PO Q8HPRN PRN for 30 Days, #90 TAB Prov:JULIANNE WELLS MD 02/04/23 Sumatriptan Succinate (Imitrex) 50 Mg Tab, 2 TAB PO UD, #9 TAB 1 Refill 100 mg to be utilized at the inception of the headache. Patient may repeat the 100 mg dose after 1 hour if ineffective. Maximum dosing is 200 mg a day Prov:BAYRON JAMES PAC 04/12/22 Aspirin (ASPIRIN 81) 81 Mg Tab, 81 MG OR DAILY, #30 TAB Prov:BAYRON JAMES PAC 04/12/22 Metoprolol Tartrate (Metoprolol Tartrate) 25 Mg Tab, 1 TAB PO TID, #90 TAB 1 Refill Prov:BAYRON JAMES PAC 04/12/22 Phenazopyridine HCl (Phenazopyridine Hydrochlo) 200 Mg Tab, 200 MG PO TID, #6 TAB Prov:CAMILO YEPEZ 01/28/22 Reported Medications Losartan Potassium (Losartan Potassium) 50 Mg Tab, 1 TAB PO BID 10/29/21 Aspirin (Aspirin Low Dose) 81 Mg Tab, 1 TAB PO DAILYPRN 10/29/21 Atorvastatin Calcium (ATORVASTATIN CALCIUM) 40 Mg Tab, 1 TAB PO DAILYPRN for . 10/29/21 Albuterol Sulfate (Albuterol Sulfate Hfa) 108 Mcg/Act Aer, INH 10/29/21 Hydrocodone-Acetaminophen (Hydrocodone Bitartrate/AC 5-217 mg/10Ml) 1 Liliana Liliana 10/29/21 Acetaminophen W/ Codeine (Tylenol #4 W/Codeine) 1 Tab Tb, 1 TAB PO Q6HPRN, TAB 07/03/21 Ondansetron (Zofran) 4 Mg Tab, 4 MG PO TID 07/03/21 Cholecalciferol (Vitamin D3) 50,000 Unit Cap, 1 CAP PO QWEEKLY 07/03/21 Information Source: Friend Mode of Arrival: Ambulatory Past Medical History PAST MEDICAL HISTORY: Asthma, CVA, High Lipids, HTN, Kidney Stones, Thyroid, TIA Surgical History: Appendectomy, Thyroidectomy, Tonsillectomy, Tubal Ligation 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: No Pertinent 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, Uterine Fibroids Family History Family History: Unknown Social History Smoker: Non-Smoker Alcohol: Denies ETOH Use Drugs: Denies Drug Use Lives In: Home All Other Systems: Reviewed and Negative (Per HPI) Physical Exam General Appearance: No Apparent Distress, Normal HEENT: Normal ENT Inspection, Pharynx Normal, TMs Normal Neck: Full Range of Motion, Non-Tender, Normal, Normal Inspection Respiratory: Chest Non-Tender, Lungs Clear, No Accessory Muscle Use, No Res piratory Distress, Normal Breath Sounds Cardiovascular: No Murmur, No Gallop, Regular Rate/Rhythm Breast Exam: Deferred Gastrointestinal: No Organomegaly, Non Tender, No Pulsatile Mass, Normal Bowel Sounds, Soft Genitalia: Deferred Pelvic: Deferred Rectal: Deferred Extremities: No calf tenderness, Normal capillary refill, Normal inspection, Normal range of motion, Non-tender, No pedal edema Musculoskeletal : Location: Right Extremity Location: Knee Apperance: Normal Neurologic: Alert, associate biological sales II-XII nml as Tested, No Motor Deficits, Normal Affect, No Sensory Deficits Cerebellar Function: Normal Reflexes: Normal Skin: Dry, Normal Color, Warm Lymphatic: No Adenopathy Was a procedure done? Was a procedure done?: No Differential Diagnosis EXT Differential Diagnosis: Fracture, Sprain, Dislocation, Arthritis X-Ray, Labs, Meds, VS Vital Signs Date Time Temp Pulse Resp B/P (MAP) Pulse Ox O2 Delivery O2 Flow Rate FiO2 07/07/24 16:01 98.4 72 16 120/78 (92) 97 98.4 07/07/24 16:01 72 16 97 Room Air 07/07/24 15:57 72 16 97 Room Air 07/07/24 15:57 98.4 72 16 120/78 (92) 97 98.4 07/07/24 15:30 98.6 82 16 127/85 (99) 97 PATIENT: ISABEL ZARCO MACCT: [id number]: [id number] : 1970 LOC: ER ROOM / BED: / AGE / SEX: 54 / F ADM STATUS: REG ER SERVICE [id number] ORDERING PHYSICIAN: PATEL JARRELL NP PROCEDURE(s): RKN3 - R KNEE 3V XRAY REASON: Chx knee pain ORDER NUMBER(s): [id number], ACCESSION NUMBER(s): [id number] CLINICAL INDICATION: Chx knee pain TECHNIQUE: XY R KNEE 3V XRAY Comparison: None FINDINGS/IMPRESSION: : There is no evidence of acute fracture or dislocation. Severe tricompartmental degenerative changes. Small knee joint effusion. ATED BY: LEVI LINDQUIST MD DICTATED DATE/TIME: 07/07/24 163 SIGNED BY: LEVI LINDQUIST MD SIGNED DATE/TIME: 07/07/241633 CC: X-Ray, Labs, Meds, VS Comment X-ray of the knee ordered. X-ray interpreted by radiologist and reviewed by me Patient was also informed that we recommend against routine use of the intra articular glucocorticoid injections for knee pain. Patient was informed that we limit the use of intra-articular injections to patients with moderate to severe pain and to have failed other treatment options and who are seeking short-term pain relief. Patient was also informed that this procedure is not routinely recommended in clinical practice and patient should not receive multiple nor repetitive injections. Patient was also informed that serial injections like every 3 months are discouraged due to potential negative effects on the progression of cartilage damage in the knee osteoarthritis patient's Risks and benefits of steroid injections were discussed with patient and patient gave verbal consent to the procedure. Right knee lateral approach The patient's right knee was prepped in the usual sterile fashion using alcohol and iodine. A 25-gauge, 1-1/2 inch needle into the knee joint using the lateral approach. Through the needle I injected a solution containing 1 cc 40 mg of Kenalog and 4 cc of 1% lidocaine. The needle was removed and a sterile dressing (Band-Aid) was applied patient tolerated procedure well Prescribed Mobic for the management of acute knee pain. Start with 7.5 mg daily and may increase to 15 mg daily as needed for pain Voltaren gel as needed for the pain Recommend light walking under the sun for 30 minutes a day Avoiding running jogging high-impact activities Stretch as tolerated Ice 3x/day for 5 minutes Wear knee brace for stability as needed, elevate leg swelling aggravated Time of 1ST Reevaluation: 17:21 Reevaluation 1ST: Improved Patient Education/Counseling: Diagnosis, Treatment Family Education/Counseling: Diagnosis, Treatment Departure 1 Departure Time of Disposition: 18:00 Impression: Primary Impression: Tricompartment osteoarthritis of right knee Disposition: HOME / SELF CARE / HOMELESS Condition: Stable e-Prescriptions Diclofenac Sodium (Topical) (Voltaren Arthritis Pain) 1 % Gel 1 GRAMS EX QIDP for 10 Days, #60 GRAMS 0 Refills Prov: PATEL JARRELL DRAWER [employer] [place] 07/07/24 Acetaminophen (Acetaminophen) 500 Mg Tab 500 MG PO Q6HP PRN for 30 Days, #120 TAB 0 Refills Prov: PATEL JARRELL NP 07/07/24 Meloxicam (Meloxicam) 7.5 Mg Tab 1 TAB PO BIDP PRN for 30 Days, #60 TAB 0 Refills Prov: PATEL JARRELL DRAWER [employer] [place] 07/07/24 Critical Care Note Critical Care Time?: No Stability Stability form required: No Heart Score Heart Score: Heart Score Response (Comments) Value History N/A 0 EKG N/A 0 Age N/A 0 Risk Factors N/A 0 Troponin N/A 0 Total 0 PATEL JARRELL DRAWER [employer] [employer] Jul 07, 2024 17:25
[2024-07-07] MEDS: TRIAMCINOLONE 40MG/ML 1ML VIAL IX ONE (17:31)
[2024-07-07] MEDS: LIDOCAINE 1% HCL (LOCAL ANESTH.) INJ 20ML MDV IJ ONE (17:31)
== END 2024-07-07 17:46 | disposition home or self-care (01) ==
LOC: ER 15:06
DX: M17.11 Unilateral primary osteoarthritis, right knee (principal); I10 Essential (primary) hypertension; J45.909 Unspecified asthma, uncomplicated; E78.5 Hyperlipidemia, unspecified; Z86.73 Personal history of transient ischemic attack (TIA), and cerebral infarction without residual deficits; Z90.49 Acquired absence of other specified parts of digestive tract; Z90.89 Acquired absence of other organs; Z98.51 Tubal ligation status; Z79.82 Long term (current) use of aspirin; Z79.899 Other long term (current) drug therapy
CPT/HCPCS: 20610; 73562; 99283; J2003; J3301

== ENCOUNTER 2024-11-04 22:47 | Inpatient (IN) | payer OTHER ==
[~2024-11-04] VITALS: Ht 175.3 cm; Wt 124.9 kg
[~2024-11-04 22:47] MED LIST changes: +ACET500T58 PO; +DICL1GEL59 EX; +MELO7.5T7 PO
--- NOTE | 2024-11-04 23:35 | ED.PDOC ---
General HPI Comments 54 year old female presents to the ED with a chief complaint of LT flank pain onset 1 day. Patient states she has been experiencing LT flank pain for the past day, radiating to LT low back as well as LLQ. Patient noticed pain worsen, came to ED. PMHx kidney stones, HTN, HLD, CVA, TIA, asthma, thyroid disease. Denies any fevers, chills, dysuria, hematuria, nausea, vomiting, diarrhea, chest pain, shortness of breath, dizziness, blurry vision. No other symptoms or modifying factors present at this time. Chief Complaint: Flank Pain Time Seen by MD: 23:25 Primary Care Provider: SAPPHIRE Reviewed notes: Medications, Allergies Allergies: Coded Allergies: NO KNOWN ALLERGIES (Unverified , 11/13/09) Home Meds Active Scripts Diclofenac Sodium (Topical) (Voltaren Arthritis Pain) 1 % Gel, 1 GRAMS EX QIDP for 10 Days, #60 GRAMS 0 Refills Prov:PATEL JARRELL CHEMISTRY QUALITY CONTROL ANALYST 07/07/24 Acetaminophen (Acetaminophen) 500 Mg Tab, 500 MG PO Q6HP PRN for 30 Days, #120 TAB 0 Refills Prov:PATEL JARRELL NP 07/07/24 Meloxicam (Meloxicam) 7.5 Mg Tab, 1 TAB PO BIDP PRN for 30 Days, #60 TAB 0 Refills Prov:PATEL JARRELL NP 07/07/24 Hydrocortone (Hydrocortisone 2.5%) 1 Applic Ap, 1 APPLIC TOP BID, #1 CRE 0 Refills Prov:TEA KNOX 01/02/24 Cetirizine HCl (Eql All Day Allergy) 10 Mg Tab, 10 MG PO DAILY PRN, #24 TAB 0 Refills Prov:TEA KNOX 01/02/24 Cephalexin Monohydrate (Cephalexin) 500 Mg Cap, 1 CAP PO BID for 7 Days, #14 CAP 0 Refills Prov:TEA KNOX 01/02/24 Meclizine Hcl (Meclizine Hcl) 25 Mg Tab, 25 MG PO Q8HPRN PRN for 30 Days, #90 TAB Prov:JULIANNE WELLS MD 02/04/23 Sumatriptan Succinate (Imitrex) 50 Mg Tab, 2 TAB PO UD, #9 TAB 1 Refill 100 mg to be utilized at the inception of the headache. Patient may repeat the 100 mg dose after 1 hour if ineffective. Maximum dosing is 200 mg a day Prov:ERIKABAYRON Izzy PAC 04/12/22 Aspirin (ASPIRIN 81) 81 Mg Tab, 81 MG OR DAILY, #30 TAB Prov:BAYRON JAMES PAC 04/12/22 Metoprolol Tartrate (Metoprolol Tartrate) 25 Mg Tab, 1 TAB PO TID, #90 TAB 1 Refill Prov:ERIKABAYRON Izzy PAC 04/12/22 Phenazopyridine HCl (Phenazopyridine Hydrochlo) 200 Mg Tab, 200 MG PO TID, #6 TAB Prov:CAMILO YEPEZ PA 01/28/22 Reported Medications Losartan Potassium (Losartan Potassium) 50 Mg Tab, 1 TAB PO BID 10/29/21 Aspirin (Aspirin Low Dose) 81 Mg Tab, 1 TAB PO DAILYPRN 10/29/21 Atorvastatin Calcium (ATORVASTATIN CALCIUM) 40 Mg Tab, 1 TAB PO DAILYPRN for . 10/29/21 Albuterol Sulfate (Albuterol Sulfate Hfa) 108 Mcg/Act Aer, INH 10/29/21 Hydrocodone-Acetaminophen (Hydrocodone Bitartrate/AC 5-217 mg/10Ml) 1 Liliana Liliana 10/29/21 Acetaminophen W/ Codeine (Tylenol #4 W/Codeine) 1 Tab Tb, 1 TAB PO Q6HPRN, TAB 07/03/21 Ondansetron (Zofran) 4 Mg Tab, 4 MG PO TID 07/03/21 Cholecalciferol (Vitamin D3) 50,000 Unit Cap, 1 CAP PO QWEEKLY 07/03/21 Information Source: Patient Mode of Arrival: Ambulatory Severity: Moderate Timing: Days Duration: Since onset Prehospital treatment: None Onset: Spontaneous Symptoms: Other History of: Kidney stone Location: (L)Flank, None Modifying factors: None associated signs and symptoms: Abdominal Pain (LLQ), Flank Pain, Back Pain Past Medical History PAST MEDICAL HISTORY: Asthma, CVA, High Lipids, HTN, Kidney Stones, Thyroid, TIA Surgical History: Appendectomy, Thyroidectomy, Tonsillectomy, Tubal Ligation MOBILE DESIGNER History: No Pertinent MOBILE DESIGNER History, Uterine Fibroids Family History Family History: Unknown Social History Smoker: Non-Smoker Alcohol: Denies ETOH Use Drugs: Denies Drug Use Lives In: Home Constitutional: denies: chills, diaphoresis, fatigue, fever, malaise, sweats, weakness, others EENTM: denies: blurred vision, double vision, ear bleeding, ear discharge, ear drainage, ear pain, ear ringing, eye pain, eye redness, hearing loss, mouth pain, mouth swelling, nasal discharge, nose bleeding, nose congestion, nose pain, photophobia, tearing, throat pain, throat swelling, voice changes, others Respiratory: denies: cough, hemoptysis, orthopnea, SOB at rest, shortness of breath, SOB with excertion, stridor, wheezing, others Cardiovascular: denies: chest pain, dizzy spells, diaphoresis, Dyspnea on exertion, edema, irregular heart beat, left arm pain, lightheadedness, palpitations, PND, syncope, others Gastrointestinal: reports: abdominal pain (LLQ); denies: abdomen distended, blood streaked bowels, constipated, diarrhea, dysphagia, difficulty swallowing, hematemesis, melena, nausea, poor appetite, poor fluid intake, rectal bleeding, rectal pain, vomiting, others Genitourinary: reports: flank pain (LT); denies: abnormal vagina bleeding, burning, dyspareunia, dysuria, frequency, hematuria, incontinence, pain, , vagina discharge, urgency, others Neurological: denies: dizziness, fainting, headache, left sided numbness, left sided weakness, numbness, paresthesia, pre-existing deficit, right sided numbness, right sided weakness, seizure, speech problems, tingling, tremors, weakness, others Musculoskeletal: reports: back pain (LT); denies: gout, joint pain, joint swelling, muscle pain, muscle stiffness, neck pain, others Integumetry: denies: bruises, change in color, change in hair/nails, dryness, laceration, lesions, lumps, rash, wounds, others Allergic/Immunocompromised: denies: Difficulty Healing, Frequent Infections, Hives, Itching, others Hematologic/Lymphatic: denies: anemia, blood clots, easy bleeding, easy bruising, swollen glands, others Endocrine: denies: excessive hunger, excessive sweating, excessive thirst, excessive urination, flushing, intolerance to cold, intolerance to heat, unexplained weight gain, unexplained weight loss, others Psychiatric: denies: anxiety, bipolar disorder, depression, hopeless, panic disorder, schizophrenia, sleepless, suicidal, others All Other Systems: Reviewed and Negative Physical Exam General Appearance: Normal HEENT: Normal ENT Inspection, Pharynx Normal, TMs Normal Neck: Full Range of Motion, Non-Tender, Normal, Normal Inspection Respiratory: Chest Non-Tender, Lungs Clear, No Accessory Muscle Use, No Respiratory Distress, Normal Breath Sounds Cardiovascular: No Edema, No JVD, No Murmur, No Gallop, Normal Peripheral Pulses, Regular Rate/Rhythm Breast Exam: Deferred Gastrointestinal: No Organomegaly, Non Tender, No Pulsatile Mass, Normal Bowel Sounds, Soft Genitalia: Deferred Pelvic: Deferred Rectal: Deferred Extremities: No calf tenderness, Normal capillary refill, Normal inspection, Normal range of motion, Non-tender, No pedal edema Musculoskeletal : Apperance: Normal Neurologic: Alert, retail analytics manager II-XII nml as Tested, No Motor Deficits, Normal Affect, Normal Mood, No Sensory Deficits Cerebellar Function: Normal Reflexes: Normal Skin: Dry, Normal Color, Warm Lymphatic: No Adenopathy Was a procedure done? Was a procedure done?: No Differential Diagnosis Kidney stone (Female): N/A Kidney stone (Male): N/A Penile/Scrotal: N/A Urinary Problem (Male): N/A Urinary Problem (Female): Impaction, PID, Pyelonephritis, Urolithiasis, UTI X-Ray, Labs, Meds, VS Vital Signs Date Time Temp Pulse Resp B/P (MAP) Pulse Ox O2 Delivery O2 Flow Rate FiO2 11/04/24 22:58 98.3 93 16 151/101 (118) 97 98.3 Lab Test 11/04/24 23:34 11/04/24 22:54 Range/Units White Blood Count 6.2 4.4-10.8 10^3/uL Red Blood Count 4.26 4.0-5.20 10^6/uL Hemoglobin 12.8 12.2-16.2 g/dL Hematocrit 37.6 36.0-46.0 % Mean Corpuscular Volume 88.4 80.0-100.0 fL Mean Corpuscular Hemoglobin 30.1 28.0-32.0 pg Mean Corpuscular Hemoglobin Concent 34.1 32.0-36.0 g/dL Red Cell Distribution Width 14.9 H 11.8-14.3 % Platelet Count 395 140-450 10^3/uL Mean Platelet Volume 7.2 6.9-10.8 fL Neutrophils (%) (Auto) 57.5 37.0-80.0 % Lymphocytes (%) (Auto) 28.1 10.0-50.0 % Monocytes (%) (Auto) 8.7 0.0-12.0 % Eosinophils (%) (Auto) 4.5 0.0-7.0 % Basophils (%) (Auto) 1.2 0.0-2.0 % Neutrophils # (Auto) 3.6 1.6-8.6 10 ^3/uL Lymphocytes # (Auto) 1.8 0.4-5.4 10 ^3/uL Monocytes # (Auto) 0.5 0-1.3 10 ^3/uL Eosinophils # (Auto) 0.3 0-0.8 10 ^3/uL Basophils # (Auto) 0.1 0-0.2 10 ^3/uL Nucleated Red Blood Cells 0.0 % Sodium Level 140 136-145 mmol/L Potassium Level 4.2 3.5-5.1 mmol/L Chloride Level 104 98-107 mmol/L Carbon Dioxide Level 29 20-31 mmol/L Anion Gap 7 5-15 Blood Urea Nitrogen 14 9-23 mg/dL Creatinine 0.79 0.550-1.02 mg/dL Glomerular Filtration Rate Calc 88 >90 mL/min BUN/Creatinine Ratio 17.7 10.0-20.0 Serum Glucose 116 H 74-106 mg/dL Calcium Level 9.8 8.7-10.4 mg/dL Urine Color Light-yellow Yellow Urine Clarity Clear Clear Urine pH 5.0 5.0-9.0 Urine Specific [place] 1.029 1.001-1.035 Urine Protein Negative Negative Urine Ketones Negative Negative Urine Blood Negative Negative /uL Urine Nitrite Negative Negative Urine Bilirubin Negative Negative Urine Urobilinogen Normal Negative mg/dL Urine Leukocyte Esterase Negative Negative /uL Urine RBC 1 0 - 4 /hpf Urine Microscopic WBC 1 0-5 /HPF Urine Squamous Epithelial Cells Few <5 /hpf Urine Bacteria Few H None Seen /hpf Urine Mucus Few None Seen Urine Glucose Normal Normal mg/dL Time of 1ST Reevaluation: 23:55 Reevaluation 1ST: Unchanged Patient Education/Counseling: Diagnosis, Treatment, Prognosis Family Education/Counseling: No Family Present SEPSIS Sepsis Screen Date sepsis recognized/suspect: Nov 04, 2024 Time Sepsis recognized/suspect: 2253 Recent Procedure: No On Antibiotic Therapy: No Respiratory Rate >20: No Heart Rate >90: Yes Temp<36 C (96.8 F) or >38.3 C: No SBP <90 or MAP <65 mmHG: No New Acute Mental Status Change: No Is the patient on CPAP, BIPAP,: No Physician Orders Ct Ab Pel Wo Con-No Oral Or Iv (11/04/24 23:25) Vital Signs Date Time Temp Pulse Resp B/P (MAP) Pulse Ox O2 Delivery O2 Flow Rate FiO2 11/04/24 22:58 98.3 93 16 151/101 (118) 97 98.3 Laboratory Tests Test 11/04/24 23:34 White Blood Count 6.2 10^3/uL (4.4-10.8) Departure 1 Departure Time of Disposition: 01:53 (Patient presented with abdominal pain that was concerning for possible appendicits, gastritis, cholecystitis, colitis, gastroenteritis, sbo, or orther possible surgical emergency. Data: 1. I ordered and reviewed the result of at least 3 labs including a CBC, BMP, and Urinalysis. 2. I independently interpreted the following tests: CT Abdoment and Pelvis is concerning for constipation and uterine fibroids .Risk:This patient has a high risk of morbidity due to further diagnostic testing or treatment and may suffer from an acute abdominal process disorder. Workup reveals constipation and uterine fibroids and intractable abdominal pain and patient should be admitted for further workup. and possible expert consultation. ) Impression: Primary Impression: Intractable abdominal pain Additional Impressions: Constipation Qualified Codes: K59.00 - Constipation, unspecified Fibroids Disposition: ADMITTED INPATIENT Admit to: Med Surg Condition: Serious Critical Care Note Critical Care Time?: Yes Critical care comment: Intractable abdominal pain Authorized and Performed by: Samia Brandt MD Total critical care time: Approximately 38 minutes Due to a high probability of clinically significant, life threatening deterioration, the patient required my highest level of preparedness to intervene emergently and I personally spent this critical care time directly and personally managing the patient. This critical care time included obtaining a history; examining the patient; pulse oximetry; ordering and review of studies; arranging urgent treatment with development of a management plan; evaluation of patient's response to treatment; frequent reassessment; and, discussions with other providers. This critical care time was performed to assess and manage the high probability of imminent, life-threatening deterioration that could result in multi-organ failure. It was exclusive of separately billable procedures and treating other patients and teaching time. Please see my other sections and the rest of the note for further information on patient assessment and treatment. Stability Stability form required: No I personally scribed for SAMIA BRANDT MD ([email or web address]) on 11/04/24 at 23:35. Electronically submitted by Ijeoma Collins ([email or web address]). SAMIA BRANDT MD Nov 04, 2024 23:35
[2024-11-04 23:50] LABS: Basophils # (auto) 0.1 10 ^3/uL (0-0.2); Basophils % (auto) 1.2 % (0.0-2.0); Eosinophils # (auto) 0.3 10 ^3/uL (0-0.8); Eosinophils % (auto) 4.5 % (0.0-7.0); Hematocrit 37.6 % (36.0-46.0); Hemoglobin 12.8 g/dL (12.2-16.2); Lymphocytes # (auto) 1.8 10 ^3/uL (0.4-5.4); Lymphocytes % (auto) 28.1 % (10.0-50.0); Mean Corpuscular Hemoglobin 30.1 pg (28.0-32.0); Mean Corpuscular Hgb Conc. 34.1 g/dL (32.0-36.0); Mean Corpuscular Volume 88.4 fL (80.0-100.0); Monocytes # (auto) 0.5 10 ^3/uL (0-1.3); Monocytes % (auto) 8.7 % (0.0-12.0); Neutrophils # (auto) 3.6 10 ^3/uL (1.6-8.6); Neutrophils % (auto) 57.5 % (37.0-80.0); Platelet Count (auto) 395 10^3/uL (140-450); Red Blood Cells 4.26 10^6/uL (4.0-5.20); Red Cell Distribution Width 14.9 % (11.8-14.3); White Blood Cell 6.2 10^3/uL (4.4-10.8)
[2024-11-04 23:58] LABS: Chloride 104 mmol/L (98-107); Potassium 4.2 mmol/L (3.5-5.1); Sodium 140 mmol/L (136-145)
[2024-11-04 23:59] LABS: Anion Gap 7 (5-15); Carbon Dioxide 29 mmol/L (20-31)
[2024-11-05] VITALS (9 sets, daily range): BP systolic 102–151; BP diastolic 50–101; PULSE 63–83; RESP 15–18; TEMP 98.1–98.4; O2SAT 93–100
[2024-11-05] LABS: Calcium 9.8 mg/dL (8.7-10.4)
[2024-11-05 00:05] LABS: BUN/Creatinine Ratio 17.7 (10.0-20.0); Blood Urea Nitrogen 14 mg/dL (9-23)
[2024-11-05 00:06] LABS: Glucose 116 mg/dL (74-106)
[2024-11-05 01:05] LABS: Urine Bacteria FEW /hpf (None Seen); Urine Blood Negative /uL (Negative); Urine Clarity Clear (Clear); Urine Color Light-Yellow (Yellow); Urine Mucus FEW (None Seen); Urine Protein, UAD Negative (Negative); Urine Specific Gravity 1.029 (1.001-1.035); Urine Squamous Epithelial Cell FEW /hpf (<5); Urine Urobilinogen Normal (Negative); Urine WBC 1 /HPF (0-5)
--- NOTE | 2024-11-05 01:39 | DVH ---
CT SCAN ABDOMEN AND PELVIS WITHOUT CONTRAST CLINICAL HISTORY: left flank pain TECHNIQUE: Helical axial images are obtained from the lung bases through the pelvis without oral cont rast. No intravenous contrast was administered. Coronal and sagittal reformatted images were generate d from thin section reconstructions. One or more of the following radiation dose reduction techniques were used for this examination: automated exposure control, adjustment of the mA and/or kV according to patient size, use of iterative reconstruction technique. COMPARISON: CT ABD PELVIS WO CONTRAST on DOS: 03/16/22 FINDINGS: LOWER THORAX: Imaged lung bases are grossly clear. ABDOMEN AND PELVIS: Evaluation of visceral and vascular structures is limited due to lack of contrast administration. As visualized, the unenhanced liver, spleen, pancreas and adrenals appear grossly unremarkable. No si zable, radiopaque cholelithiasis or biliary ductal dilatation. No hydroureteronephrosis or sizable, obstructing urinary tract calculi identified. No evidence of abdominal aortic aneurysm. No evidence of small-bowel obstruction. Postsurgical changes in the right lower quadrant. Moderate t o large volume stool seen throughout the colon. No free intraperitoneal air or fluid identified. No sizable bladder calculus. As before, the uterus appears bulky and nodular in contour. No destructive osseous lesions identified. IMPRESSION: No bowel obstruction, free intraperitoneal air/fluid or sizable inflammatory collections identified o n this noncontrast examination. Moderate to large colonic stool volume may indicate constipation. Bulky, nodular appearance of the uterus is a chronic finding and may be secondary to myomatous diseas e. Ultrasound and/or MRI may be obtained to further evaluate. HS:Y
[2024-11-05] MEDS: KETOROLAC TROMETH 30 MG/ML 1ML VIAL IV ONE (02:00)
[2024-11-05] MEDS: ONDANSETRON HCL 4 MG/2 ML VIAL IV ONE (02:00)
[2024-11-05] MEDS: MORPHINE SULFATE 4 MG/ML SYR/VIAL IV ONE (02:00)
[2024-11-05] MEDS ORDERED: ONDANSETRON HCL 4 MG/2 ML VIAL IV PRN (04:45)
[2024-11-05] MEDS ORDERED: ALBUTEROL SULF 2.5 MG/0.5ML(0.5%) NEB SOLN NEB PRN (04:45)
[2024-11-05] MEDS ORDERED: HYDROcodone-ACET 5/325MG TAB PO PRN (04:45)
[2024-11-05] MEDS ORDERED: ACETAMINOPHEN 325 MG TAB PO PRN ×2 (04:45→09:30)
[2024-11-05] MEDS ORDERED: MECLIZINE HCL 25 MG TAB PO PRN ×2 (04:45→09:30)
--- NOTE | 2024-11-05 04:51 | DVHHP2 ---
History of Present Illness Reason for Visit: Flank pain History of Present Illness 54-year-old female presents for evaluation of flank pain. Patient reports a one day history of sharp left-sided flank pain that is nonradiating. Denies nausea or vomiting. She also reports mild dizziness. No headache or blurred vision. No cardiac or respiratory complaints. Past Medical History Hypertension, thyroid, dyslipidemia, CVA, asthma Past Surgical History Thyroidectomy, tonsillectomy, appendectomy Family History Noncontributory Smoke: No ALCOHOL: none Drugs: None Lives: with Family Review of Systems Review of Systems Review of systems are currently negative otherwise addressed in HPI. Allergies: Coded Allergies: NO KNOWN ALLERGIES (Unverified , 11/13/09) Exam Vital Signs Vital Signs Date Time Temp Pulse Resp B/P (MAP) Pulse Ox O2 Delivery O2 Flow Rate FiO2 11/04/24 22:58 98.3 93 16 151/101 (118) 97 98.3 Exam Gen: 54-year-old female in no apparent distress. Skin: Warm, dry, normal color and texture, no rash. HEENT: Normocephalic atraumatic, mucous membranes moist and pink. Neck: Cervical and supraclavicular nodes normal without enlargement, trachea is midline, thyroid gland is normal without masses. Pulmonary: Clear to auscultation and percussion bilaterally. Cardiac: Regular rate and rhythm. No murmur Abdomen: Soft, nontender, nondistended, bowel sounds present all 4 quadrants, no guarding, no rigidity, no organomegaly. Extremities: No cyanosis, clubbing, no edema Neuro: Cranial nerves II through XII grossly intact, normal affect and speech, no focal motor deficits. Labs/Xrays ORDERING PHYSICIAN: SAMIA FLORES MD PROCEDURE(s): ABPL - CT AB PEL WO CON-NO ORAL OR IV REASON: left flank pain ORDER NUMBER(s): [id number], ACCESSION NUMBER(s): [id number] CT SCAN ABDOMEN AND PELVIS WITHOUT CONTRAST CLINICAL HISTORY: left flank pain TECHNIQUE: Helical axial images are obtained from the lung bases through the pelvis without oral contrast. No intravenous contrast was administered. Coronal and sagittal reformatted images were generated from thin section reconstructions. One or more of the following radiation dose reduction techniques were used for this examination: automated exposure control, adjustment of the mA and/or kV according to patient size, use of iterative reconstruction technique. COMPARISON: CT ABD PELVIS WO CONTRAST on DOS: 03/16/22 FINDINGS: LOWER THORAX: Imaged lung bases are grossly clear. ABDOMEN AND PELVIS: Evaluation of visceral and vascular structures is limited due to lack of contrast administration. As visualized, the unenhanced liver, spleen, pancreas and adrenals appear grossly unremarkable. No sizable, radiopaque cholelithiasis or biliary ductal dilatation. No hydroureteronephrosis or sizable, obstructing urinary tract calculi identified. No evidence of abdominal aortic aneurysm. No evidence of small-bowel obstruction. Postsurgical changes in the right lower quadrant. Moderate to large volume stool seen throughout the colon. No free intraperitoneal air or fluid identified. No sizable bladder calculus. As before, the uterus appears bulky and nodular in contour. No destructive osseous lesions identified. IMPRESSION: No bowel obstruction, free intraperitoneal air/fluid or sizable inflammatory collections identified on this noncontrast examination. Moderate to large colonic stool volume may indicate constipation. Bulky, nodular appearance of the uterus is a chronic finding and may be secondary to myomatous disease. Ultrasound and/or MRI may be obtained to further evaluate. HS:Y Labs Test 11/04/24 23:34 11/04/24 22:54 Range/Units White Blood Count 6.2 4.4-10.8 10^3/uL Red Blood Count 4.26 4.0-5.20 10^6/uL Hemoglobin 12.8 12.2-16.2 g/dL Hematocrit 37.6 36.0-46.0 % Mean Corpuscular Volume 88.4 80.0-100.0 fL Mean Corpuscular Hemoglobin 30.1 28.0-32.0 pg Mean Corpuscular Hemoglobin Concent 34.1 32.0-36.0 g/dL Red Cell Distribution Width 14.9 H 11.8-14.3 % Platelet Count 395 140-450 10^3/uL Mean Platelet Volume 7.2 6.9-10.8 fL Neutrophils (%) (Auto) 57.5 37.0-80.0 % Lymphocytes (%) (Auto) 28.1 10.0-50.0 % Monocytes (%) (Auto) 8.7 0.0-12.0 % Eosinophils (%) (Auto) 4.5 0.0-7.0 % Basophils (%) (Auto) 1.2 0.0-2.0 % Neutrophils # (Auto) 3.6 1.6-8.6 10 ^3/uL Lymphocytes # (Auto) 1.8 0.4-5.4 10 ^3/uL Monocytes # (Auto) 0.5 0-1.3 10 ^3/uL Eosinophils # (Auto) 0.3 0-0.8 10 ^3/uL Basophils # (Auto) 0.1 0-0.2 10 ^3/uL Nucleated Red Blood Cells 0.0 % Sodium Level 140 136-145 mmol/L Potassium Level 4.2 3.5-5.1 mmol/L Chloride Level 104 98-107 mmol/L Carbon Dioxide Level 29 20-31 mmol/L Anion Gap 7 5-15 Blood Urea Nitrogen 14 9-23 mg/dL Creatinine 0.79 0.550-1.02 mg/dL Glomerular Filtration Rate Calc 88 >90 mL/min BUN/Creatinine Ratio 17.7 10.0-20.0 Serum Glucose 116 H 74-106 mg/dL Calcium Level 9.8 8.7-10.4 mg/dL Urine Color Light-yellow Yellow Urine Clarity Clear Clear Urine pH 5.0 5.0-9.0 Urine Specific [place] 1.029 1.001-1.035 Urine Protein Negative Negative Urine Ketones Negative Negative Urine Blood Negative Negative /uL Urine Nitrite Negative Negative Urine Bilirubin Negative Negative Urine Urobilinogen Normal Negative mg/dL Urine Leukocyte Esterase Negative Negative /uL Urine RBC 1 0 - 4 /hpf Urine Microscopic WBC 1 0-5 /HPF Urine Squamous Epithelial Cells Few <5 /hpf Urine Bacteria Few H None Seen /hpf Urine Mucus Few None Seen Urine Glucose Normal Normal mg/dL Assessment/Plan Assessment/Plan Assessment Intractable flank pain UTI Hypertension Morbid obesity Plan Admit the [facility] to [facility] [place] to the hospitalist Pain management Resume home medications Continue treatment per orders. Plan discussed with: Patient My Orders Orders - ROBERT AYERS AGACNP Procedure Category Date Status Time Nitrofurantoin PHA 11/05/24 Transmitted Capsule (Macrobid) 10:00 Albuterol Medneb PHA 11/05/24 Transmitted (Ventolin Medneb) 04:45 Aspirin Tablet PHA 11/05/24 Verified 10:00 Atorvastatin (Lipitor) PHA 11/05/24 Verified 22:00 Losartan Tablet PHA 11/05/24 Verified (Cozaar Tablet) 10:00 Metoprolol Tartrate PHA 11/05/24 Verified Tablet (Lopressor Ta 10:00 Meclizine Tablet PHA 11/05/24 Verified (Antivert Tablet) 04:45 Basic Metabolic Panel LAB 11/06/24 Verified 04:00 Admit ADMIT 11/05/24 Verified 04:43 Hydrocodone-Acet PHA 11/05/24 Verified 5/325mg Tab ([place] 04:45 Ondansetron Hcl PHA 11/05/24 Verified (Zofran) 04:45 Cardiac DIET 11/05/24 Verified Diet-2gna,Lofat,Lochol Breakfast Condition: Stable JOELLE 11/05/24 Verified 04:43 Acetaminophen Tablet PHA 11/05/24 Verified (Tylenol Tablet) 04:45 Bedrest With Bathroom JOELLE 11/05/24 Verified Privileg 04:43 Date of Service: Nov 05, 2024 Billing Provider: ROBERT AYERS Common Visit Codes: [id number] INP/OBS CARE (MOD) ROBERT AYERS Nov 05, 2024 04:51
[2024-11-05] MEDS: HYDROcodone-ACET 5/325MG TAB PO ONE (05:03)
[2024-11-05] MEDS: ONDANSETRON ODT 4 MG TAB PO ONE (05:04)
[2024-11-05] MEDS: SODIUM CHLORIDE 0.9% 1,000 ML IV ONE (05:39)
[2024-11-05 09:09] LABS: INR 0.99 (0.9-1.15); Partial Thromboplastin Time 25.2 SEC (24.5-34.5); Prothrombin Time 10.5 sec (9.3-11.8)
[2024-11-05] MEDS ORDERED: NITROFURANTOIN 100 mg CAP PO SCH (10:00)
[2024-11-05] MEDS ORDERED: LOSARTAN POTASSIUM 50 MG TAB PO SCH (10:00)
[2024-11-05] MEDS ORDERED: ASPirin 81 mg TAB PO SCH (10:00)
[2024-11-05] MEDS ORDERED: METOPROLOL TARTRATE 25 MG TAB PO SCH (10:00)
[2024-11-05] MEDS: ASPirin 81 mg TAB PO SCH (10:03)
[2024-11-05] MEDS: LOSARTAN POTASSIUM 50 MG TAB PO SCH (10:03)
--- NOTE | 2024-11-05 10:03 | DVH ---
PELVIC ULTRASOUND (TRANSABDOMINAL) HISTORY: FIBROIDS COMPARISON: PELUS on DOS: 10/29/21, PELVIC on DOS: 10/29/21 TECHNIQUE: Grayscale images were obtained of the pelvis through a transabdominal approach. FINDINGS: UTERUS: Size: 12.2 x 9.0 x 10.8. Multiple intramural uterine fibroids (approximately 4) largest of which is along the left uterine fun kyree wall measuring 5.5 x 4.3 x 4.7 cm. Endometrial thickness: 6 mm No focal abnormality of the endometrium is demonstrated. RIGHT ADNEXA: Right ovary is not visualized due to acoustic windows. LEFT ADNEXA: Left ovarian size: 4.5 x 2.4 x 2.3 cm. 2.3cm dominant left ovarian follicle. Arterial venous flow intact. No significant free fluid in the pelvis. IMPRESSION: 1. Approximately 4 uterine fibroids, largest of which measures 5.5 cm in the left uterine fundal wall 2. Right ovary is not visualized
[2024-11-05] MEDS: HYDROcodone-ACET 5/325MG TAB PO PRN (10:05)
[2024-11-05] MEDS: METOPROLOL TARTRATE 25 MG TAB PO SCH (10:06)
--- NOTE | 2024-11-05 11:30 | DVH ---
INDICATION: renal stone TECHNIQUE: Multiple real-time sonographic images of the kidneys and bladder were obtained. COMPARISON: None FINDINGS: The right kidney measures 9 cm in length, which is normal in size. There is normal echogen[place] of the right kidney. No hydronephrosis. 7 Mm possible stone right mid kidney The left kidney measures 9 cm in length, which is normal in size. There is normal echogenicity of the left kidney. No hydronephrosis. No large intraluminal masses are seen in the bladder. IMPRESSION: 7 Mm possible stone right mid kidney
[2024-11-05] MEDS: CYCLOBENZAPRINE HCL 10 MG TAB PO ONE (12:49)
[2024-11-05] MEDS: GABAPENTIN 100 MG CAP PO ONE (12:49)
[2024-11-05] MEDS: CYCLOBENZAPRINE HCL 10 MG TAB PO SCH (14:00)
[2024-11-05] MEDS: GABAPENTIN 100 MG CAP PO SCH (14:00)
--- NOTE | 2024-11-05 15:08 | DVHPNRES ---
Progress Note Date Seen: Nov 05, 2024 Resident Creating Document: FRANCA VILLANUEVA DENISE Has the PT tested + for MRSA If YES, has PT been informed?: No Medical Necessity Reason Pt with a Central, PICC or Fol: No Subjective Review of Systems This is a 50 year old female with past medical history of hypertension, thyroid disease, dyslipidemia, CVA, asthma came to the hospital due to left flank pain since 1 day. Pain is localized at left flank, radiating to left lower quadrant. He describes pain as sharp, constant but increased with physical activity/position change, 02/20. Also reports of nausea, and generalized weakness. Patient seen and examined at bedside. Patient is still complained of severe flank pain. Patient reports: No new complaints Changes from previous H/P or p: No Changes Objective vital signs Vital Sign Date Time Temp Pulse Resp B/P (MAP) Pulse Ox O2 Delivery O2 Flow Rate FiO2 11/05/24 13:58 98.4 83 120/65 (83) 94 98.4 11/05/24 10:08 18 11/05/24 05:43 Room Air* 0 21 21 medications Current Medications Medications Dose Ordered Sig/Warren Route Start Time Stop Time Status Last Admin Dose Admin Albuterol 2.5 mg Q6HPRN PRN NEB 11/05/24 09:15 Aspirin 81 mg DAILY PO 11/05/24 10:00 11/05/24 10:03 81 MG Atorvastatin Calcium 40 mg HS PO 11/05/24 22:00 Losartan Potassium 50 mg DAILY PO 11/05/24 10:00 11/05/24 10:03 50 MG Metoprolol Tartrate 25 mg BID PO 11/05/24 10:00 11/05/24 10:06 25 MG Acetaminophen/ Hydrocodone Bitart 1 tab Q4HP PRN PO 11/05/24 09:30 11/05/24 10:05 1 TAB Ondansetron HCl 4 mg Q4HP PRN IV 11/05/24 09:30 Acetaminophen 650 mg Q6HP PRN PO 11/05/24 09:30 Gabapentin 200 mg TID PO 11/05/24 14:00 Cyclobenzaprine HCl 5 mg TID PO 11/05/24 14:00 Examination General Appearance: Alert, Oriented X3, Cooperative, No acute distress HEENT: Atraumatic, PERRLA, EOMI, Mucous membrane moist/pink Respiratory: Clear to auscultation, Normal air movement Cardiovascular: Regular rate, Normal S1, Normal S2, No murmurs, no chest wall tenderness Abdominal: Normal bowel sounds, Soft, No tenderness, No hepatospenomegaly, No masses Extremities: No clubbing, No cyanosis, No edema, Normal pulses, No tenderness/swelling Skin: Left flank and left lower quadrant tenderness Neuro: Normal gait, Normal speech, Strength at 5/5 X4 ext, Normal tone, Sensation intact, Cranial nerves 3-12 NL, Reflexes 2+ Psych/Mental Status: Mental status NL, Mood NL laboratory and microbiology Laboratory Tests 11/04/24 23:34 Test 11/04/24 23:34 Range/Units Serum Glucose 116 H 74-106 mg/dL Labs and/or images reviewed: Labs reviewed by me, Image(s) reviewed by me Problem List/Assessment/Plan Problem List/Assessment/Plan Intractable abdominal pain, likely due to musculoskeletal/costochondritis/renal colic Kidney stone ? Costochondritis Hypertension The thyroidism Dyslipidemia History of CVA Asthma Morbid obesity Possible uterine fibroid necrosis * Pelvic ultrasound showed, pproximately 4 uterine fibroids, largest of which measures 5.5 cm in the left uterine fundal wall * Renal ultrasound shows, 7 Mm possible stone right mid kidney * Abdominopelvic CT scan shows, bulky, nodular appearance of the uterus is a chronic finding and may be secondary to myomatous disease Plan/recommendation Pain management IV fluid Muscle relaxant, cyclobenzaprine Continue home meds DIET: Cardiac diet DVT PROPHYLAXIS: Lovenox GI PROPHYLAXIS:: Protonix CODE STATUS: Goal of care discussed for more than 18 minutes, full code DISPOSITION: Med/surge Patient's status and plan discussed with the patient. Case discussed with Dr. Young. Plan discussed with: Patient, Other (RN) My Orders My Orders Orders - FRANCA VILLANUEVA Procedure Category Date Status Time Drug Screen LAB 11/05/24 Logged 08:23 Electrocardigram EKG 11/05/24 Logged 08:23 Kidney US 11/05/24 Resulted 08:21 Pelvic US 11/05/24 Resulted 08:32 Gabapentin Capsule PHA 11/05/24 In Process (Neurontin Capsule) 14:00 Cyclobenzaprine PHA 11/05/24 In Process Tablet (Flexeril 14:00 Date of Service: Nov 05, 2024 Billing Provider: DUANE YOUNG MD Common Visit Codes: [id number] INP/OBS CARE(HIGH) FRANCA VILLANUEVA Nov 05, 2024 15:08 DUANE YOUNG MD Nov 10, 2024 21:41
[2024-11-05] MEDS: PANTOPRAZOLE 40 MG/10 ML VIAL INJ IV ONE (16:39)
[2024-11-05] MEDS: KETOROLAC TROMETH 30 MG/ML 1ML VIAL IV SCH (17:54)
[2024-11-05] MEDS: ATORVASTATIN 20 MG TAB PO SCH (22:00)
[2024-11-05] MEDS ORDERED: ATORVASTATIN 20 MG TAB PO SCH (22:00)
[2024-11-06] VITALS (10 sets, daily range): BP systolic 112–140; BP diastolic 59–85; PULSE 60–93; RESP 18–20; TEMP 97.5–98.3; O2SAT 93–100
[2024-11-06 06:53] LABS: Chloride 106 mmol/L (98-107); Potassium 4.2 mmol/L (3.5-5.1); Sodium 140 mmol/L (136-145)
[2024-11-06 06:54] LABS: Anion Gap 6 (5-15); Calcium 9.9 mg/dL (8.7-10.4); Carbon Dioxide 28 mmol/L (20-31)
[2024-11-06 06:58] LABS: Basophils # (auto) 0.1 10 ^3/uL (0-0.2); Basophils % (auto) 1.2 % (0.0-2.0); Eosinophils # (auto) 0.3 10 ^3/uL (0-0.8); Eosinophils % (auto) 5.2 % (0.0-7.0); Hematocrit 35.8 % (36.0-46.0); Hemoglobin 12.3 g/dL (12.2-16.2); Lymphocytes # (auto) 1.8 10 ^3/uL (0.4-5.4); Lymphocytes % (auto) 33.7 % (10.0-50.0); Mean Corpuscular Hemoglobin 30.1 pg (28.0-32.0); Mean Corpuscular Hgb Conc. 34.2 g/dL (32.0-36.0); Mean Corpuscular Volume 88.1 fL (80.0-100.0); Monocytes # (auto) 0.4 10 ^3/uL (0-1.3); Monocytes % (auto) 8.5 % (0.0-12.0); Neutrophils # (auto) 2.7 10 ^3/uL (1.6-8.6); Neutrophils % (auto) 51.4 % (37.0-80.0); Platelet Count (auto) 372 10^3/uL (140-450); Red Blood Cells 4.06 10^6/uL (4.0-5.20); White Blood Cell 5.2 10^3/uL (4.4-10.8)
[2024-11-06 06:59] LABS: BUN/Creatinine Ratio 11.4 (10.0-20.0); Blood Urea Nitrogen 10 mg/dL (9-23); Glucose 90 mg/dL (74-106)
[2024-11-06] MEDS: PANTOPRAZOLE 40 MG/10 ML VIAL INJ IV SCH (09:12)
[2024-11-06] MEDS: ONDANSETRON HCL 4 MG/2 ML VIAL IV PRN (09:12)
[2024-11-06] MEDS ORDERED: METO-158 PO (09:20)
[2024-11-06] MEDS ORDERED: MET50T GT (09:20)
--- NOTE | 2024-11-06 13:56 | DVHPNRES ---
Progress Note Date Seen: Nov 06, 2024 Resident Creating Document: FRANCA VILLANUEVA DENISE Has the PT tested + for MRSA If YES, has PT been informed?: No Medical Necessity Reason Pt with a Central, PICC or Fol: No Subjective Review of Systems Patient seen and examined at bedside. Patient is feeling better since admission but still complaining of flank pain. Objective vital signs Vital Sign Date Time Temp Pulse Resp B/P (MAP) Pulse Ox O2 Delivery O2 Flow Rate FiO2 11/06/24 09:13 63 133/85 11/06/24 09:00 97.5 20 100 97.5 11/06/24 08:00 Room Air* 0 21 Total Intake and Output 11/05/24 11/05/24 11/06/24 15:00 23:00 07:00 Intake Total 600 ml 0 ml Balance 600 ml 0 ml medications Current Medications Medications Dose Ordered Sig/Warren Route Start Time Stop Time Status Last Admin Dose Admin Albuterol 2.5 mg Q6HPRN PRN NEB 11/05/24 09:15 Aspirin 81 mg DAILY PO 11/05/24 10:00 11/06/24 09:13 81 MG Atorvastatin Calcium 40 mg HS PO 11/05/24 22:00 11/05/24 22:00 40 MG Losartan Potassium 50 mg DAILY PO 11/05/24 10:00 11/06/24 09:12 50 MG Metoprolol Tartrate 25 mg BID PO 11/05/24 10:00 11/06/24 09:13 25 MG Acetaminophen/ Hydrocodone Bitart 1 tab Q4HP PRN PO 11/05/24 09:30 11/05/24 10:05 1 TAB Ondansetron HCl 4 mg Q4HP PRN IV 11/05/24 09:30 11/06/24 09:12 4 MG Acetaminophen 650 mg Q6HP PRN PO 11/05/24 09:30 Gabapentin 200 mg TID PO 11/05/24 14:00 11/06/24 06:18 200 MG Cyclobenzaprine HCl 5 mg TID PO 11/05/24 14:00 11/06/24 06:18 5 MG Ketorolac Tromethamine 15 mg Q6HR IV 11/05/24 18:00 11/10/24 17:59 11/06/24 12:06 15 MG Pantoprazole Sodium 40 mg DAILY IV 11/06/24 10:00 11/06/24 09:12 40 MG Examination General Appearance: Alert, Oriented X3, Cooperative, No acute distress HEENT: Atraumatic, PERRLA, EOMI, Mucous membrane moist/pink Respiratory: Clear to auscultation, Normal air movement Cardiovascular: Regular rate, Normal S1, Normal S2, No murmurs, no chest wall tenderness Abdominal: Normal bowel sounds, Soft, No tenderness, No hepatospenomegaly, No masses Extremities: No clubbing, No cyanosis, No edema, Normal pulses, No tenderness/swelling Skin: Left flank and left lower quadrant tenderness Neuro: Normal gait, Normal speech, Strength at 5/5 X4 ext, Normal tone, Sensation intact, Cranial nerves 3-12 NL, Reflexes 2+ Psych/Mental Status: Mental status NL, Mood NL laboratory and microbiology Laboratory Tests 11/06/24 06:00 Test 11/06/24 06:00 Range/Units Serum Glucose 90 74-106 mg/dL Labs and/or images reviewed: Labs reviewed by me, Image(s) reviewed by me Problem List/Assessment/Plan Problem List/Assessment/Plan Intractable abdominal pain, likely due to musculoskeletal/costochondritis/renal colic Kidney stone ? Costochondritis Uterine fibroids Hypertension The thyroidism Dyslipidemia History of CVA Asthma Morbid obesity * Pelvic ultrasound showed, pproximately 4 uterine fibroids, largest of which measures 5.5 cm in the left uterine fundal wall * Renal ultrasound shows, 7 Mm possible stone right mid kidney * Abdominopelvic CT scan shows, bulky, nodular appearance of the uterus is a chronic finding and may be secondary to myomatous disease Plan/recommendation * Pain management * IV fluid * Muscle relaxant, cyclobenzaprine * Continue home meds * Physiotherapy evaluation DIET: Cardiac diet DVT PROPHYLAXIS: Lovenox GI PROPHYLAXIS:: Protonix CODE STATUS: Goal of care discussed for more than 18 minutes, full code DISPOSITION: Med/surge Patient's status and plan discussed with the patient. Case discussed with Dr. Young. Plan discussed with: Patient, Other (RN) My Orders My Orders Orders - FRANCA VILLANUEVA RESDITYSON Procedure Category Date Status Time Ketorolac Injection PHA 11/05/24 In Process (Toradol Injection) 18:00 Pantoprazole PHA 11/06/24 In Process (Protonix) 10:00 Date of Service: Nov 06, 2024 Billing Provider: DUANE YOUNG MD Common Visit Codes: [id number] INP/OBS CARE(HIGH) FRANCA VILLANUEVA Nov 06, 2024 13:56 DUANE YOUNG MD Nov 10, 2024 21:59
[2024-11-07] VITALS (10 sets, daily range): BP systolic 105–125; BP diastolic 47–74; PULSE 67–79; RESP 18–20; TEMP 96.4–97.9; O2SAT 95–100
[2024-11-07 06:32] LABS: Basophils # (auto) 0.1 10 ^3/uL (0-0.2); Basophils % (auto) 1.2 % (0.0-2.0); Eosinophils # (auto) 0.3 10 ^3/uL (0-0.8); Hematocrit 35.6 % (36.0-46.0); Hemoglobin 12.2 g/dL (12.2-16.2); Lymphocytes # (auto) 1.6 10 ^3/uL (0.4-5.4); Lymphocytes % (auto) 28.8 % (10.0-50.0); Mean Corpuscular Hemoglobin 30.2 pg (28.0-32.0); Mean Corpuscular Hgb Conc. 34.1 g/dL (32.0-36.0); Mean Corpuscular Volume 88.4 fL (80.0-100.0); Monocytes # (auto) 0.5 10 ^3/uL (0-1.3); Monocytes % (auto) 9.5 % (0.0-12.0); Neutrophils % (auto) 55.5 % (37.0-80.0); Nucleated Red Blood Cells % 0.1 %; Platelet Count (auto) 379 10^3/uL (140-450); Red Blood Cells 4.03 10^6/uL (4.0-5.20); Red Cell Distribution Width 15.2 % (11.8-14.3); White Blood Cell 5.5 10^3/uL (4.4-10.8)
[2024-11-07 06:47] LABS: Calcium 9.1 mg/dL (8.7-10.4); Chloride 104 mmol/L (98-107); Potassium 4.2 mmol/L (3.5-5.1); Sodium 139 mmol/L (136-145)
[2024-11-07 06:48] LABS: Anion Gap 6 (5-15); Carbon Dioxide 29 mmol/L (20-31)
[2024-11-07 06:53] LABS: Blood Urea Nitrogen 17 mg/dL (9-23); Glucose 96 mg/dL (74-106)
[2024-11-07] MEDS: ALBUTEROL SULF 2.5 MG/0.5ML(0.5%) NEB SOLN NEB PRN (10:11)
[2024-11-07] MEDS ORDERED: CYCL-839 PO (10:58)
[2024-11-07] MEDS ORDERED: PANT40TA2 PO (10:58)
[2024-11-07] MEDS ORDERED: IBUP1TAB4 PO (10:58)
--- NOTE | 2024-11-07 10:59 | DVHDSRES ---
Discharge Summary Date of Admission Resident Creating Document: FRANCA VILLANUEVA RESDIENT Nov 05, 2024 at 04:43 Date of Discharge: Nov 07, 2024 Labs/Diagnostic Data: Laboratory Results Test 11/07/24 05:45 11/05/24 15:55 11/05/24 08:36 11/04/24 22:54 White Blood Count 5.5 10^3/uL (4.4-10.8) Red Blood Count 4.03 10^6/uL (4.0-5.20) Hemoglobin 12.2 g/dL (12.2-16.2) Hematocrit 35.6 % (36.0-46.0) Mean Corpuscular Volume 88.4 fL (80.0-100.0) Mean Corpuscular Hemoglobin 30.2 pg (28.0-32.0) Mean Corpuscular Hemoglobin Concent 34.1 g/dL (32.0-36.0) Red Cell Distribution Width 15.2 % (11.8-14.3) Platelet Count 379 10^3/uL (140-450) Mean Platelet Volume 7.2 fL (6.9-10.8) Neutrophils (%) (Auto) 55.5 % (37.0-80.0) Lymphocytes (%) (Auto) 28.8 % (10.0-50.0) Monocytes (%) (Auto) 9.5 % (0.0-12.0) Eosinophils (%) (Auto) 5.0 % (0.0-7.0) Basophils (%) (Auto) 1.2 % (0.0-2.0) Neutrophils # (Auto) 3.0 10 ^3/uL (1.6-8.6) Lymphocytes # (Auto) 1.6 10 ^3/uL (0.4-5.4) Monocytes # (Auto) 0.5 10 ^3/uL (0-1.3) Eosinophils # (Auto) 0.3 10 ^3/uL (0-0.8) Basophils # (Auto) 0.1 10 ^3/uL (0-0.2) Nucleated Red Blood Cells 0.1 % Sodium Level 139 mmol/L (136-145) Potassium Level 4.2 mmol/L (3.5-5.1) Chloride Level 104 mmol/L (98-107) Carbon Dioxide Level 29 mmol/L (20-31) Anion Gap 6 (5-15) Blood Urea Nitrogen 17 mg/dL (9-23) Creatinine 1.00 mg/dL (0.550-1.02) Glomerular Filtration Rate Calc 66 mL/min (>90) BUN/Creatinine Ratio 17.0 (10.0-20.0) Serum Glucose 96 mg/dL (74-106) Calcium Level 9.1 mg/dL (8.7-10.4) Lactic Acid Level 0.5 mmol/L (0.4-2.0) Prothrombin Time 10.5 sec (9.3-11.8) Prothrombin Time INR 0.99 (0.9-1.15) Activated Partial Thromboplast Time 25.2 SEC (24.5-34.5) C-Reactive Protein High Sensitivity 0.07 mg/dL (<1.0) Urine Color Light-yellow (Yellow) Urine Clarity Clear (Clear) Urine pH 5.0 (5.0-9.0) Urine Specific [place] 1.029 (1.001-1.035) Urine Protein Negative (Negative) Urine Ketones Negative (Negative) Urine Blood Negative /uL (Negative) Urine Nitrite Negative (Negative) Urine Bilirubin Negative (Negative) Urine Urobilinogen Normal mg/dL (Negative) Urine Leukocyte Esterase Negative /uL (Negative) Urine RBC 1 /hpf (0 - 4) Urine Microscopic WBC 1 /HPF (0-5) Urine Squamous Epithelial Cells Few /hpf (<5) Urine Bacteria Few /hpf (None Seen) Urine Mucus Few (None Seen) Urine Glucose Normal mg/dL (Normal) Other Laboratory Tests 11/07/24 05:45 Brief Hx & Hospital Course: HISTORY OF PRESENT ILLNESS: This is a 50 year old female with past medical history of hypertension, thyroid disease, dyslipidemia, CVA, asthma came to the hospital due to left flank pain since 1 day. Pain is localized at left flank, radiating to left lower quadrant. He describes pain as sharp, constant but increased with physical activity/position change, 10/10. Also reports of nausea, vomiting, and generalized weakness. HOSPITAL COURSE: Patient was admitted on the line of intractable abdominal pain, likely due to renal colic/musculoskeletal/costochondritis. CT scan performed showed, bulky, nodular appearance of the uterus is a chronic finding and may be secondary to myomatous disease. Pelvic ultrasound showed, pproximately 4 uterine fibroids, largest of which measures 5.5 cm in the left uterine fundal wall and Renal ultrasound shows, 7 Mm possible stone right mid kidney. The patient was started on IV ketorolac, cyclobenzaprine, and gabapentin. During hospital course home medication were continued, and physiotherapy evaluation was performed. On 11/08/2023, the patient was feeling better since admission. Abdominal pain had improved, the patient was able to ambulate. Discharge plan discussed with the patient the patient discharged home. DISCHARGE PLAN: Tablet cyclobenzaprine for 5 days Tablet ibuprofen for 5 days Protonix for 5 days Continue home meds Follow up with the PCP within 1 week of discharge. Follow up with the discharge Clinic within 1 week of discharge. FINAL DIAGNOSIS: Intractable abdominal pain, likely due to musculoskeletal/costochondritis/renal colic Kidney stone ? Costochondritis Ruled out Uterine fibroids necrosis Hypertension The thyroidism Dyslipidemia History of CVA Asthma Morbid obesity Condition at Discharge: Good Final Diagnosis/Problems List . Discharge Disposition: Home Discharge Instruct/Medications Diet: Cardiac 2g Na,low cholest Activity: No Restrictions, As Tolerated Follow Up/Referral: Follow up with the PCP within 1 week of the discharge. Follow up with the discharge Clinic within 1 week of the discharge, on Sunday morning Medications: Cyclobenzaprine once daily for 5 days Ibuprofen 400 mg 2 times daily for 5 days Protonix 40 mg daily for 5 days Continue home med Discharge Statement: "Patient was advised to return to the ER or call 911 if any headaches, dizziness, shortness of breath, chest pain, abdominal pain, bleeding, fevers, or worsening of medical condition. Patient was counseled about treatment plan, medications, possible side effects, patientverbalized understanding. All questions were answered to the best of my ability. This discharge took greater then 30 minutes in planning, reviewing documentation, counseling the patient, and discussing with other team members." ASSESSMENT ASSESSMENT Assessment Musculoskeletal pain Date of Service: Nov 07, 2024 Billing Provider: DUANE YOUNG MD Common Visit Codes: [id number] DISCH DAY >30min FRANCA VILLANUEVA RESDIENT Nov 07, 2024 10:59 DUANE YOUNG MD Nov 10, 2024 22:11
--- NOTE | 2024-11-11 22:36 | PEER ---
Peer to Peer Review Time DATE: 11/11/24 TIME: 22:35 Review and Recommendations: Peer to peer discussion performed with Dr. Martin from [facility]. Decision Patient approved for inpatient care. FRANCA VILLANUEVA RESDIENT Nov 11, 2024 22:36
== END 2024-11-07 15:00 | disposition home or self-care (01) | DRG 465 ==
LOC: ER 22:47 → OVERFLOW 11-05 04:43 → ER 11-05 04:48 → WEST WING 11-05 22:14
PROVIDERS: ADMIT Student in an Organized Health Care Education/Training Program; ATTEND Family Medicine
DX: N20.0 Calculus of kidney (principal); E66.01 Morbid (severe) obesity due to excess calories; M94.0 Chondrocostal junction syndrome [Tietze]; N23 Unspecified renal colic; N39.0 Urinary tract infection, site not specified; Z68.41 Body mass index [BMI] 40.0-44.9, adult; E89.0 Postprocedural hypothyroidism; I10 Essential (primary) hypertension; K59.00 Constipation, unspecified; J45.909 Unspecified asthma, uncomplicated; E78.5 Hyperlipidemia, unspecified; Z98.51 Tubal ligation status; Z90.49 Acquired absence of other specified parts of digestive tract; Z86.73 Personal history of transient ischemic attack (TIA), and cerebral infarction without residual deficits
CPT/HCPCS: 36415; 74176; 76775; 76856; 80048; 81001; 83605; 85025; 85610; 85730; 86141; 94640; 97163; 99291; G0378; J1885; J2405; J2470; Q0162

== ENCOUNTER 2025-01-20 10:25 | Inpatient (IN) | payer OTHER ==
[~2025-01-20] VITALS: Ht 175.3 cm; Wt 137.2 kg
[~2025-01-20 10:25] MED LIST changes: -ASPI-325 PO; -CEPH500C PO; +CYCL-839 PO; +IBUP1TAB4 PO; -MELO7.5T7 PO; +METO-158 PO; -METO25TA5 PO; -ONDA-144 PO; +PANT40TA2 PO
--- NOTE | 2025-01-20 10:40 | ED.PDOC ---
General HPI Comments 54-year-old female with a history of MS, hypertension, thyroid disease, dyslipidemia, CVA, asthma and uterine fibroids presenting complaining of body pain which she believes is due to an MS pain exacerbation. Patient states she receives monthly injections as treatment for MS. She states she has been taking ibuprofen at home without relief. Patient states pain is intermittently in her shoulders, extremities and back, however it is worse in her right flank today and is associated with nausea. She denies any fever, abdominal pain, vomiting, diarrhea, constipation, dysuria or hematuria. Of note, patient was admitted here in October of 2024 for intractable right flank pain. Review of notes from that admission did mention any history of MS. Chief Complaint: Flank Pain Time Seen by MD: 10:45 Primary Care Provider: SAPPHIRE Reviewed notes: Nurses Notes, Medications, Allergies Allergies: Coded Allergies: NO KNOWN ALLERGIES (Unverified , 11/13/09) Home Meds Active Scripts Ibuprofen Micronized (Ibuprofen) 400 Mg Tab, 400 MG PO BID for 5 Days, #10 TAB Prov:HEFRANCA CRYSTAL RESDIENT 11/07/24 Pantoprazole Sodium Sesquihydr (Protonix) 40 Mg Tab, 40 MG PO DAILY for 5 Days, #5 TAB Prov:HEWALISAHEWAD RESDIENT 11/07/24 Cyclobenzaprine Hcl (Cyclobenzaprine Hcl) 10 Mg Tab, 10 MG PO HS for 5 Days, #5 TAB Prov:HEWAJARRETTALHEWAD RESDIENT 11/07/24 Diclofenac Sodium (Topical) (Voltaren Arthritis Pain) 1 % Gel, 1 GRAMS EX QIDP for 10 Days, #60 GRAMS 0 Refills Prov:PATEL JARRELL ENGINE ROOM OPERATOR 07/07/24 Acetaminophen (Acetaminophen) 500 Mg Tab, 500 MG PO Q6HP PRN for 30 Days, #120 TAB 0 Refills Prov:PATEL JARRELL ENGINE ROOM OPERATOR 07/07/24 Hydrocortone (Hydrocortisone 2.5%) 1 Applic Ap, 1 APPLIC TOP BID, #1 CRE 0 Refills Prov:TEA KNOX 01/02/24 Cetirizine HCl (Eql All Day Allergy) 10 Mg Tab, 10 MG PO DAILY PRN, #24 TAB 0 Refills Prov:TEA KNOX 01/02/24 Meclizine Hcl (Meclizine Hcl) 25 Mg Tab, 25 MG PO Q8HPRN PRN for 30 Days, #90 TAB Prov:JULIANNE WELLS MD 02/04/23 Sumatriptan Succinate (Imitrex) 50 Mg Tab, 2 TAB PO UD, #9 TAB 1 Refill 100 mg to be utilized at the inception of the headache. Patient may repeat the 100 mg dose after 1 hour if ineffective. Maximum dosing is 200 mg a day Prov:BAYRON JAMES PAC 04/12/22 Aspirin (ASPIRIN 81) 81 Mg Tab, 81 MG OR DAILY, #30 TAB Prov:BAYRON JAMES PAC 04/12/22 Phenazopyridine HCl (Phenazopyridine Hydrochlo) 200 Mg Tab, 200 MG PO TID, #6 TAB Prov:CAMILO YEPEZ 01/28/22 Reported Medications Metoprolol Tartrate (Metoprolol Tartrate) 50 Mg Tab, 50 MG PO, TAB 11/06/24 Losartan Potassium (Losartan Potassium) 50 Mg Tab, 1 TAB PO BID 10/29/21 Atorvastatin Calcium (ATORVASTATIN CALCIUM) 40 Mg Tab, 1 TAB PO DAILYPRN for . 10/29/21 Albuterol Sulfate (Albuterol Sulfate Hfa) 108 Mcg/Act Aer, INH 10/29/21 Hydrocodone-Acetaminophen (Hydrocodone Bitartrate/AC 5-217 mg/10Ml) 1 Liliana Liliana 10/29/21 Acetaminophen W/ Codeine (Tylenol #4 W/Codeine) 1 Tab Tb, 1 TAB PO Q6HPRN, TAB 07/03/21 Cholecalciferol (Vitamin D3) 50,000 Unit Cap, 1 CAP PO QWEEKLY 07/03/21 Information Source: Patient Mode of Arrival: Ambulatory Severity: Moderate Timing: Days Duration: Since onset Prehospital treatment: None Onset: Spontaneous Symptoms: None History of: None Location: (R) Flank Modifying factors: None associated signs and symptoms: Flank Pain Past Medical History PAST MEDICAL HISTORY: Asthma, CVA, High Lipids, HTN, Kidney Stones, Thyroid, TI A Past Medical History (Other): MULTIPLE SCLEROSIS Surgical History: Appendectomy, Thyroidectomy, Tonsillectomy, Tubal 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: Uterine Fibroids Family History Family History: Unknown Social History Smoker: Non-Smoker Alcohol: Denies ETOH Use Drugs: Denies Drug Use Lives In: Home Constitutional: denies: chills, diaphoresis, fatigue, fever, malaise, sweats, weakness, others EENTM: denies: blurred vision, double vision, ear bleeding, ear discharge, ear drainage, ear pain, ear ringing, eye pain, eye redness, hearing loss, mouth pain, mouth swelling, nasal discharge, nose bleeding, nose congestion, nose pain, photophobia, tearing, throat pain, throat swelling, voice changes, others Respiratory: denies: cough, hemoptysis, orthopnea, SOB at rest, shortness of breath, SOB with excertion, stridor, wheezing, others Cardiovascular: denies: chest pain, dizzy spells, diaphoresis, Dyspnea on exertion, edema, irregular heart beat, left arm pain, lightheadedness, palpitations, PND, syncope, others Gastrointestinal: reports: nausea; denies: abdomen distended, abdominal pain, blood streaked bowels, constipated, diarrhea, dysphagia, difficulty swallowing, hematemesis, melena, poor appetite, poor fluid intake, rectal bleeding, rectal pain, vomiting, others Genitourinary: reports: flank pain; denies: abnormal vagina bleeding, burning, dyspareunia, dysuria, frequency, hematuria, incontinence, pain, , vagina discharge, urgency, others Neurological: denies: dizziness, fainting, headache, left sided numbness, left sided weakness, numbness, paresthesia, pre-existing deficit, right sided numbness, right sided weakness, seizure, speech problems, tingling, tremors, weakness, others Musculoskeletal: denies: back pain, gout, joint pain, joint swelling, muscle pain, muscle stiffness, neck pain, others Integumetry: denies: bruises, change in color, change in hair/nails, dryness, laceration, lesions, lumps, rash, wounds, others Allergic/Immunocompromised: denies: Difficulty Healing, Frequent Infections, Hives, Itching, others Hematologic/Lymphatic: denies: anemia, blood clots, easy bleeding, easy bruising, swollen glands, others Endocrine: denies: excessive hunger, excessive sweating, excessive thirst, excessive urination, flushing, intolerance to cold, intolerance to heat, unexp lained weight gain, unexplained weight loss, others Psychiatric: denies: anxiety, bipolar disorder, depression, hopeless, panic disorder, schizophrenia, sleepless, suicidal, others All Other Systems: Reviewed and Negative Physical Exam General Appearance: Mild Distress, Obese HEENT: Other (Pupils and face symmetric. Moist mucous membranes.) Neck: Full Range of Motion, Normal Inspection Respiratory: Lungs Clear, No Accessory Muscle Use, No Respiratory Distress, Normal Breath Sounds Cardiovascular: No Edema, No JVD, Regular Rate/Rhythm Breast Exam: Deferred Gastrointestinal: Non Tender, Soft, Other (Palpation of the right flank and back does not affect the pain) Genitalia: Deferred Pelvic: Deferred Rectal: Deferred Extremities: Normal inspection, Normal range of motion, Non-tender, No pedal edema Neurologic: Alert (Oriented x4), Normal Affect, Normal Mood, Other (Ambulatory) Cerebellar Function: NOT DONE Reflexes: NOT DONE Skin: Dry, Normal Color, Warm Lymphatic: NOT DONE Was a procedure done? Was a procedure done?: No Differential Diagnosis Kidney stone (Female): Musculoskeletal pain, Pyelonephritis, Urolithiasis Kidney stone (Male): N/A Penile/Scrotal: N/A Urinary Problem (Male): N/A Urinary Problem (Female): UTI Other Differential Diagnosis MS pain exacerbation (spasticity, dysesthesias/neuropathy), other mus culoskeletal pain, among others X-Ray, Labs, Meds, VS Vital Signs Date Time Temp Pulse Resp B/P (MAP) Pulse Ox O2 Delivery O2 Flow Rate FiO2 01/20/25 12:02 72 17 99 Room Air* 0 21 01/20/25 11:51 72 18 167/100 01/20/25 11:46 97.9 72 16 167/100 (122) 99 97.9 01/20/25 10:28 98.4 72 18 165/88 94 98.4 Lab Test 01/20/25 11:11 01/20/25 11:10 Range/Units Urine Color Yellow Yellow Urine Clarity Clear Clear Urine pH 5.5 5.0-9.0 Urine Specific Sterling 1.028 1.001-1.035 Urine Protein Negative Negative Urine Ketones Negative Negative Urine Blood Negative Negative /uL Urine Nitrite Negative Negative Urine Bilirubin Negative Negative Urine Urobilinogen Normal Negative mg/dL Urine Leukocyte Esterase Negative Negative /uL Urine RBC 1 0 - 4 /hpf Urine Microscopic WBC 1 0-5 /HPF Urine Squamous Epithelial Cells Few <5 /hpf Urine Bacteria None seen None Seen /hpf Urine Mucus Few None Seen Urine Yeast (Budding) Occasional None Seen /hpf Urine Glucose Normal Normal mg/dL White Blood Count 3.4 L 4.4-10.8 10^3/uL Red Blood Count 4.80 4.0-5.20 10^6/uL Hemoglobin 14.4 12.2-16.2 g/dL Hematocrit 42.4 36.0-46.0 % Mean Corpuscular Volume 88.2 80.0-100.0 fL Mean Corpuscular Hemoglobin 30.0 28.0-32.0 pg Mean Corpuscular Hemoglobin Concent 34.0 32.0-36.0 g/dL Red Cell Distribution Width 14.3 11.8-14.3 % Platelet Count 354 140-450 10^3/uL Mean Platelet Volume 7.5 6.9-10.8 fL Neutrophils (%) (Auto) 50.9 37.0-80.0 % Lymphocytes (%) (Auto) 33.9 10.0-50.0 % Monocytes (%) (Auto) 13.1 H 0.0-12.0 % Eosinophils (%) (Auto) 1.3 0.0-7.0 % Basophils (%) (Auto) 0.8 0.0-2.0 % Neutrophils # (Auto) 1.7 1.6-8.6 10 ^3/uL Lymphocytes # (Auto) 1.2 0.4-5.4 10 ^3/uL Monocytes # (Auto) 0.4 0-1.3 10 ^3/uL Eosinophils # (Auto) 0 0-0.8 10 ^3/uL Basophils # (Auto) 0 0-0.2 10 ^3/uL Nucleated Red Blood Cells 0.0 % Sodium Level 140 136-145 mmol/L Potassium Level 4.4 3.5-5.1 mmol/L Chloride Level 105 98-107 mmol/L Carbon Dioxide Level 30 20-31 mmol/L Anion Gap 5 5-15 Blood Urea Nitrogen 11 9-23 mg/dL Creatinine 0.97 0.550-1.02 mg/dL Glomerular Filtration Rate Calc 69 >90 mL/min BUN/Creatinine Ratio 11.3 10.0-20.0 Serum Glucose 80 74-106 mg/dL Calcium Level 9.9 8.7-10.4 mg/dL Total Bilirubin 0.3 0.2-1.0 mg/dL Aspartate Amino Transferase (AST) 18 13-40 U/L Alanine Aminotransferase (ALT) 17 7-40 U/L Alkaline Phosphatase 97 46-116 U/L Total Protein 8.2 5.7-8.2 g/dL Albumin 4.5 3.2-4.8 g/dL Current Medications Medications (Trade) Dose Ordered Sig/Warren Route Start Time Stop Time Status Last Admin Morphine Sulfate 4 mg ONCE ONCE IV 01/20/25 11:00 01/20/25 11:04 DC 01/20/25 11:51 Ondansetron HCl (Zofran) 4 mg ONCE ONCE IV 01/20/25 11:00 01/20/25 11:04 DC 01/20/25 11:51 Methylprednisolone Sodium Succinate (Solu Medrol) 500 mg ONCE ONCE IV 01/20/25 11:00 01/20/25 11:04 DC 01/20/25 11:52 Baclofen (Liorisal Tablet) 10 mg ONCE ONCE PO 01/20/25 11:00 01/20/25 11:04 DC 01/20/25 11:49 Gabapentin (Neurontin Capsule) 300 mg ONCE ONCE PO 01/20/25 11:00 01/20/25 11:04 DC 01/20/25 11:50 [place] [id number] Ph: [phone] DIAGNOSTIC IMAGING Diagnostic Imaging Report : [id number] Signed PATIENT: ISABEL ZARCO ACCT: [id number] UNIT: [id number] : 1970 LOC: ER ROOM / BED: / AGE / SEX: 54 / F ADM STATUS: REG ER SERVICE 1059 ORDERING PHYSICIAN: PAYTON MARSHALL MD PROCEDURE(s): ABPL - CT AB PEL WO CON-NO ORAL OR IV REASON: r flank pain ORDER NUMBER(s): [id number], ACCESSION NUMBER(s): [id number] EXAM: CT CT AB PEL WO CON-NO ORAL OR IV HISTORY: r flank pain COMPARISON: CT CT AB PEL WO CON-NO ORAL OR IV on DOS: 11/04/24, CT ABD PELVIS WO CONTRAST on DOS: 03/16/22, CT ABD PELVIS WO CONTRAST on DOS: 10/29/21 TECHNIQUE: Helical CT images of the abdomen and pelvis were performed without IV contrast. Sagittal and coronal reformatted images were obtained. This CT exam was performed using one or more of the following dose reduction techniques: Automated exposure control, adjustment of the mA and/or kv according to patient size, or the use of iterative reconstruction techniques. Radiation Dose: Abdomen/Pelvis: CTDIvol 26.78 mGy, DLP 1504.96 mGy*cm. FINDINGS: CT abdomen: The lung bases are clear. The heart is not enlarged. The noncontrast liver, spleen, gallbladder, pancreas, kidneys, and adrenal glands are unremarkable. No abdominal aortic aneurysm. CT pelvis: No abnormal bowel dilatation or free air. There is trace free fluid in the pelvis There is Fecal retention in the colon. The appendix is surgically absent. The uterus is lobulated and mildly enlarged. There is moderate lumbar degenerative disc disease. There are mild degenerative changes of the hips and sacroiliac joints. IMPRESSION: 1. Fecal retention in the colon suggestive of constipation. 2. Postoperative changes of appendectomy. 3. Fibroid uterus. 4. No evidence of bowel obstruction, urinary tract obstruction, or other acute process in the abdomen or pelvis. ATED BY: ANJALI SANTANA MD DICTATED DATE/TIME: 01/20/25 121 SIGNED BY: ANJALI SANTANA MD SIGNED DATE/TIME: 01/20/25 1211 CC: X-Ray, Labs, Meds, VS Comment 54-year-old female with a history of MS, hypertension, thyroid disease, dyslipidemia, CVA, asthma complaining of right flank and extremity pain which she states is due to an MS pain exacerbation, not relieved with p.o. ibuprofen Vitals remarkable for BP 165/88, oxygen saturation 94% on room air Exam remarkable for mild distress Rhythm strip independently interpreted by me: Sinus rhythm, rate 72, no ectopy. CT abdomen and pelvis no acute findings except possible constipation CBC remarkable for WBC 3.4, CMP and UA unremarkable Patient treated with the following in the ED: Gabapentin 300 mg p.o., baclofen 10 mg p.o., Solu-Medrol 500 mg IV, morphine 4 mg IV, Zofran 4 mg IV On re-evaluation, patient states pain has somewhat improved. Vitals were stable. Plan is to admit the patient for pain control, IV steroid treatment and Neurology evaluation. Time of 1ST Reevaluation: 11:15 Reevaluation 1ST: Unchanged Patient Education/Counseling: Diagnosis, Treatment Family Education/Counseling: No Family Present SEPSIS Sepsis Screen Date sepsis recognized/suspect: Jan 20, 2025 Time Sepsis recognized/suspect: 1033 Recent Procedure: No On Antibiotic Therapy: No Respiratory Rate >20: No Heart Rate >90: No Temp<36 C (96.8 F) or >38.3 C: No SBP <90 or MAP <65 mmHG: No New Acute Mental Status Change: No Is the patient on CPAP, BIPAP,: No Physician Orders Ct Ab Pel Wo Con-No Oral Or Iv (01/20/25 10:59) Vital Signs Date Time Temp Pulse Resp B/P (MAP) Pulse Ox O2 Delivery O2 Flow Rate FiO2 01/20/25 12:02 72 17 99 Room Air* 0 21 01/20/25 11:51 72 18 167/100 01/20/25 11:46 97.9 72 16 167/100 (122) 99 97.9 01/20/25 10:28 98.4 72 18 165/88 94 98.4 Laboratory Tests Test 01/20/25 11:10 White Blood Count 3.4 10^3/uL (4.4-10.8) L Medications Medications Dose Ordered Sig/Warren Route Start Time Stop Time Status Last Admin Dose Admin Baclofen 10 mg ONCE ONCE PO 01/20/25 11:00 01/20/25 11:04 DC 01/20/25 11:49 Gabapentin 300 mg ONCE ONCE PO 01/20/25 11:00 01/20/25 11:04 DC 01/20/25 11:50 Methylprednisolone Sodium Succinate 500 mg ONCE ONCE IV 01/20/25 11:00 01/20/25 11:04 DC 01/20/25 11:52 Morphine Sulfate 4 mg ONCE ONCE IV 01/20/25 11:00 01/20/25 11:04 DC 01/20/25 11:51 Ondansetron HCl 4 mg ONCE ONCE IV 01/20/25 11:00 01/20/25 11:04 DC 01/20/25 11:51 Departure 1 Departure Time of Disposition: 12:13 Impression: Primary Impression: Multiple sclerosis exacerbation Disposition: 09 ADMITTED INPATIENT Admit to: Med Surg Condition: Fair Critical Care Note Critical Care Time?: No Stability Stability form required: No Heart Score Heart Score: Heart Score Response (Comments) Value History N/A 0 EKG N/A 0 Age N/A 0 Risk Factors N/A 0 Troponin N/A 0 Total 0 I personally scribed for PAYTON MARSHALL MD ([email or web address]) on 01/20/25 at 10:40. Electronically submitted by Letitia Lai ([email or web address]). I personally scribed for PAYTON MARSHALL MD ([email or web address]) on 01/20/25 at 10:52. Electronically submitted by Letitia Lai ([email or web address]). I personally scribed for PAYTON MARSHALL MD ([email or web address]) on 01/20/25 at 12:22. Electronically submitted by Letitia Lai ([email or web address]). PAYTON MARSHALL MD Jan 20, 2025 10:40
[2025-01-20 11:25] LABS: Hematocrit 42.4 % (36.0-46.0); Hemoglobin 14.4 g/dL (12.2-16.2); Mean Corpuscular Hemoglobin 30.0 pg (28.0-32.0); Mean Corpuscular Volume 88.2 fL (80.0-100.0); Nucleated Red Blood Cells % 0.0 %
[2025-01-20 11:30] LABS: Urine Budding Yeast OCCASIONAL /hpf (None Seen); Urine Protein, UAD Negative (Negative)
[2025-01-20 11:45] LABS: Alanine Aminotransferase 17 U/L (7-40); Albumin 4.5 g/dL (3.2-4.8); Alkaline Phosphatase 97 U/L (46-116); Anion Gap 5 (5-15); BUN/Creatinine Ratio 11.3 (10.0-20.0); Blood Urea Nitrogen 11 mg/dL (9-23); Calcium 9.9 mg/dL (8.7-10.4); Carbon Dioxide 30 mmol/L (20-31); Chloride 105 mmol/L (98-107); Glucose 80 mg/dL (74-106); Potassium 4.4 mmol/L (3.5-5.1); Sodium 140 mmol/L (136-145); Total Protein 8.2 g/dL (5.7-8.2)
[2025-01-20] MEDS: BACLOFEN 10 MG TAB PO ONE (11:49)
[2025-01-20] MEDS: GABAPENTIN 300 MG CAP PO ONE (11:50)
[2025-01-20] MEDS: ONDANSETRON HCL 4 MG/2 ML VIAL IV ONE (11:51)
[2025-01-20] MEDS: MORPHINE SULFATE 4 MG/ML SYR/VIAL IV ONE (11:51)
[2025-01-20] MEDS: methylPREDNISolone SOD SUCC 125 MG/2 ML VL IV ONE (11:52)
[2025-01-20 12:02] VITALS: PULSE 72; RESP 17; O2SAT 99
[2025-01-20 12:13] LABS: Bilirubin, Total 0.3 mg/dL (0.2-1.0)
--- NOTE | 2025-01-20 12:13 | DVH ---
EXAM: CT CT AB PEL WO CON-NO ORAL OR IV HISTORY: r flank pain COMPARISON: CT CT AB PEL WO CON-NO ORAL OR IV on DOS: 11/04/24, CT ABD PELVIS WO CONTRAST on DOS: 03/16, CT ABD PELVIS WO CONTRAST on DOS: 10/29/21 TECHNIQUE: Helical CT images of the abdomen and pelvis were performed without IV contrast. Sagittal a nd coronal reformatted images were obtained. This CT exam was performed using one or more of the foll owing dose reduction techniques: Automated exposure control, adjustment of the mA and/or kv according to patient size, or the use of iterative reconstruction techniques. Radiation Dose: Abdomen/Pelvis: CTDIvol 26.78 mGy, DLP 1504.96 mGy*cm. FINDINGS: CT abdomen: The lung bases are clear. The heart is not enlarged. The noncontrast liver, spleen, gallb ladder, pancreas, kidneys, and adrenal glands are unremarkable. No abdominal aortic aneurysm. CT pelvis: No abnormal bowel dilatation or free air. There is trace free fluid in the pelvis There is Fecal retention in the colon. The appendix is surgically absent. The uterus is lobulated and mildly enlarged. There is moderate lumbar degenerative disc disease. There are mild degenerative changes of the hips and sacroiliac joints. IMPRESSION: 1. Fecal retention in the colon suggestive of constipation. 2. Postoperative changes of appendectomy. 3. Fibroid uterus. 4. No evidence of bowel obstruction, urinary tract obstruction, or other acute process in the abdomen or pelvis.
--- NOTE | 2025-01-20 17:32 | DVH ---
EXAM: XY CHEST XRAY 1 VIEW CLINICAL HISTORY: Body aches TECHNIQUE: Single AP view of the chest WID: COMPARISON: XY CHEST PORTABLE on DOS: 02/01/23 FINDINGS: Lines and tubes: Soft tissue anchors project over the right humeral head. Chest: The heart size and pulmonary vasculature is within normal limits. No pleural effusion, pneumothorax, or consolidation. The osseous structures are grossly intact. Multilevel thoracic spondylosis. IMPRESSION: 1. No acute cardiopulmonary abnormality.
[2025-01-20 18:15] LABS: Lactic Acid w/Reflex 2.6 mmol/L (0.4-2.0)
[2025-01-20] MEDS ORDERED: ALBUTEROL SULF HFA 90MCG INH 200DOSE IN PRN (18:30)
[2025-01-20] MEDS ORDERED: PATIENTS OWN MEDICATION (Cholecalciferol (Vitamin D3) 1 CAP) PO SCH (18:30)
[2025-01-20] MEDS ORDERED: SUMATRIPTAN SUCCINATE 50 MG PO PRN (18:30)
[2025-01-20 19:39] LABS: COVID19 ANTIGEN SOFIA FIA NEGATIVE (NEGATIVE)
[2025-01-20 19:43] VITALS: O2SAT 99
[2025-01-20 19:44] VITALS: BP 121/63; PULSE 64; RESP 18; TEMP 99; O2SAT 99
[2025-01-20] MEDS ORDERED: ALBUTEROL SULF 2.5 MG/0.5ML(0.5%) NEB SOLN NEB PRN (19:45)
[2025-01-20 19:46] LABS: Triglycerides 64.0 mg/dL (< 150)
[2025-01-20 19:47] LABS: Magnesium 1.8 mg/dL (1.6-2.6)
[2025-01-20 19:48] LABS: Cholesterol 135.0 mg/dL (< 200)
[2025-01-20 19:59] LABS: HDL Cholesterol 71.0 mg/dL (40-59)
--- NOTE | 2025-01-20 21:14 | DVHHPRES ---
History of Present Illness Resident Creating Document: JERRICA SMITH RESIDENT History of Present Illness 54-year-old female with previous history of multiple sclerosis on monoclonal antibody treatment, hypothyroidism, dyslipidemia, stroke with left-sided weakness and tingling numbness, asthma, fibroid uterus presented to the ER with complaints of severe neck and back pain, initially 10/10 in intensity, later 7/10. This pain is related to flare-up of multiple sclerosis. She was diagnosed with multiple sclerosis in May this year. In previous episode she also had visual problems including blurry vision, this time she has no vision abnormality. She denies any chest pain, shortness of breath, fever, abdominal pain or any other complaints today. Past medical history: Multiple sclerosis, stroke, hypothyroidism Past surgical history: Thyroid surgery Smoking history: Alcohol: Drugs: Kesimpta Home medications: Metoprolol 50, atorvastatin 40, vitamin D3 41958, aspirin 81, losartan 50 PCP: Dr.Charmaine Panchal Full code Review of Systems Allergies: Coded Allergies: NO KNOWN ALLERGIES (Unverified , 11/13/09) Medications Current Medications Medications Dose Ordered Sig/Warren Route Start Time Stop Time Status Last Admin Dose Admin Acetaminophen 500 mg Q6HP PRN PO 01/20/25 18:30 Aspirin 81 mg DAILY PO 01/21/25 10:00 Losartan Potassium 50 mg BID PO 01/20/25 22:00 Metoprolol Tartrate 50 mg DAILY PO 01/21/25 10:00 Pantoprazole Sodium 40 mg DAILY PO 01/21/25 10:00 Atorvastatin Calcium 40 mg HS PO 01/20/25 22:00 Patient Own Medication 1 cap QWEEKLY PO 01/20/25 18:30 UNV Patient Own Medication 2 tab UD PO 01/20/25 18:30 UNV Albuterol 2.5 mg Q8HPRN PRN NEB 01/20/25 19:45 Exam Vital Signs Vital Signs Date Time Temp Pulse Resp B/P (MAP) Pulse Ox O2 Delivery O2 Flow Rate FiO2 01/20/25 19:59 72 20 97 01/20/25 19:59 97.8 149/81 (103) 97.8 01/20/25 19:44 0.0 21 01/20/25 19:43 Room Air* Exam Pt is lying on bed General Appearance: Alert, Oriented X3, Cooperative, Mild distress HEENT: Atraumatic, Mucous membranes moist/pink Respiratory: Clear to auscultation, Normal air movement, No added sounds Cardiovascular: Regular rate, Normal S1, Normal S2, No murmurs Abdominal/ : Active bowel sounds, Soft, no distention, no tenderness Extremities: No edema, Normal pulses, No tenderness/swelling Skin: No Significant rash, except past surgical scars Neuro: Normal speech, sensorimotor deficits none Psych/Mental Status: Mental status NL, Mood NL Nurse was there as knot borer during examination Labs/Xrays Labs Test 01/20/25 19:01 01/20/25 17:57 01/20/25 11:11 01/20/25 11:10 Range/Units Lactic Acid Level 2.9 *H 0.4-2.0 mmol/L Influenza Type A Antigen Negative Negative Influenza Type B Antigen Negative Negative SARS-CoV-2 Antigen (Rapid) Negative NEGATIVE Urine Color Yellow Yellow Urine Clarity Clear Clear Urine pH 5.5 5.0-9.0 Urine Specific [place] 1.028 1.001-1.035 Urine Protein Negative Negative Urine Ketones Negative Negative Urine Blood Negative Negative /uL Urine Nitrite Negative Negative Urine Bilirubin Negative Negative Urine Urobilinogen Normal Negative mg/dL Urine Leukocyte Esterase Negative Negative /uL Urine RBC 1 0 - 4 /hpf Urine Microscopic WBC 1 0-5 /HPF Urine Squamous Epithelial Cells Few <5 /hpf Urine Bacteria None seen None Seen /hpf Urine Mucus Few None Seen Urine Yeast (Budding) Occasional None Seen /hpf Urine Glucose Normal Normal mg/dL White Blood Count 3.4 L 4.4-10.8 10^3/uL Red Blood Count 4.80 4.0-5.20 10^6/uL Hemoglobin 14.4 12.2-16.2 g/dL Hematocrit 42.4 36.0-46.0 % Mean Corpuscular Volume 88.2 80.0-100.0 fL Mean Corpuscular Hemoglobin 30.0 28.0-32.0 pg Mean Corpuscular Hemoglobin Concent 34.0 32.0-36.0 g/dL Red Cell Distribution Width 14.3 11.8-14.3 % Platelet Count 354 140-450 10^3/uL Mean Platelet Volume 7.5 6.9-10.8 fL Neutrophils (%) (Auto) 50.9 37.0-80.0 % Lymphocytes (%) (Auto) 33.9 10.0-50.0 % Monocytes (%) (Auto) 13.1 H 0.0-12.0 % Eosinophils (%) (Auto) 1.3 0.0-7.0 % Basophils (%) (Auto) 0.8 0.0-2.0 % Neutrophils # (Auto) 1.7 1.6-8.6 10 ^3/uL Lymphocytes # (Auto) 1.2 0.4-5.4 10 ^3/uL Monocytes # (Auto) 0.4 0-1.3 10 ^3/uL Eosinophils # (Auto) 0 0-0.8 10 ^3/uL Basophils # (Auto) 0 0-0.2 10 ^3/uL Nucleated Red Blood Cells 0.0 % Sodium Level 140 136-145 mmol/L Potassium Level 4.4 3.5-5.1 mmol/L Chloride Level 105 98-107 mmol/L Carbon Dioxide Level 30 20-31 mmol/L Anion Gap 5 5-15 Blood Urea Nitrogen 11 9-23 mg/dL Creatinine 0.97 0.550-1.02 mg/dL Glomerular Filtration Rate Calc 69 >90 mL/min BUN/Creatinine Ratio 11.3 10.0-20.0 Serum Glucose 80 74-106 mg/dL Hemoglobin A1c 5.7 <5.7 % A1C Calcium Level 9.9 8.7-10.4 mg/dL Phosphorus Level 2.7 2.4-5.1 mg/dL Magnesium Level 1.8 1.6-2.6 mg/dL Total Bilirubin 0.3 0.2-1.0 mg/dL Aspartate Amino Transferase (AST) 18 13-40 U/L Alanine Aminotransferase (ALT) 17 7-40 U/L Alkaline Phosphatase 97 46-116 U/L Total Protein 8.2 5.7-8.2 g/dL Albumin 4.5 3.2-4.8 g/dL Triglycerides Level 64 < 150 mg/dL Cholesterol Level 135 < 200 mg/dL LDL Cholesterol 44 < 100 mg/dL HDL Cholesterol 71 H 40-59 mg/dL Vitamin B12 Level 1038 H 211-911 pg/mL Vitamin D 25-Hydroxy 78.2 30.0-100 ng/mL Thyroid Stimulating Hormone (TSH) 0.33 L 0.55-4.78 uIU/mL SEPSIS Sepsis Screen Date sepsis recognized/suspect: Jan 20, 2025 Time Sepsis recognized/suspect: 1999 Recent Procedure: No On Antibiotic Therapy: No Respiratory Rate >20: No Heart Rate >90: No Temp<36 C (96.8 F) or >38.3 C: No SBP <90 or MAP <65 mmHG: No New Acute Mental Status Change: No Is the patient on CPAP, BIPAP,: No Physician Orders Drug Screen (01/20/25 16:26) Chest Xray 1 View (01/20/25 16:27) Admit (01/20/25 18:18) Acetaminophen Tab Or Cap (Tylenol Tablet (01/20/25 18:30) Aspirin Enteric Coated Tablet (Ecotrin E (01/21/25 10:00) Losartan Tablet (Cozaar Tablet) (01/20/25 22:00) Metoprolol Tartrate Tablet (Lopressor Ta (01/21/25 10:00) Pantoprazole Tablet (Protonix Tablet) (01/21/25 10:00) (Nf) Cholecalciferol (Vitamin D3) (01/20/25 18:30) (Nf) Sumatriptan Succinate (Imitrex) (01/20/25 18:30) Regular Diet (01/21/25 Breakfast) Brain Head Wo Contrast (01/20/25 19:03) Albuterol Medneb (Ventolin Medneb) (01/20/25 19:45) Atorvastatin (Lipitor) (01/20/25 22:00) Vital Signs Date Time Temp Pulse Resp B/P (MAP) Pulse Ox O2 Delivery O2 Flow Rate FiO2 01/20/25 19:59 72 20 97 01/20/25 19:59 97.8 72 20 149/81 (103) 97 97.8 01/20/25 19:44 99.0 64 18 121/63 99 0.0 21 99.0 01/20/25 19:43 99 Room Air* 0 21 01/20/25 19:43 99 Room Air 01/20/25 14:11 64 18 121/63 01/20/25 14:00 64 18 121/63 (82) 98 Laboratory Tests Test 01/20/25 11:10 01/20/25 17:11 01/20/25 19:01 White Blood Count 3.4 10^3/uL (4.4-10.8) L Lactic Acid Level 2.6 mmol/L (0.4-2.0) *H 2.9 mmol/L (0.4-2.0) *H Medications Medications Dose Ordered Sig/Warren Route Start Time Stop Time Status Last Admin Dose Admin Baclofen 10 mg ONCE ONCE PO 01/20/25 11:00 01/20/25 11:04 DC 01/20/25 11:49 10 MG Gabapentin 300 mg ONCE ONCE PO 01/20/25 11:00 01/20/25 11:04 DC 01/20/25 11:50 300 MG Methylprednisolone Sodium Succinate 500 mg ONCE ONCE IV 01/20/25 11:00 01/20/25 11:04 DC 01/20/25 11:52 500 MG Morphine Sulfate 4 mg ONCE ONCE IV 01/20/25 11:00 01/20/25 11:04 DC 01/20/25 11:51 4 MG Ondansetron HCl 4 mg ONCE ONCE IV 01/20/25 11:00 01/20/25 11:04 DC 01/20/25 11:51 4 MG Assessment/Plan Assessment/Plan #Relapsing and remitting Multiple sclerosis -back and neck pain -MRI ordered, pending results, if positive give steroids -baclofen 10mg p.o given once -gabapentin 300mg p.o given once #lactic acidosis -IV fluid -2.6>2.9 #hypertension -continue p.o losartan 50mg bid, p.o metoprolol 50mg od #dyslipidemia -continue atorvastatin 40mg HS #history of stroke with left-sided weakness -continue aspirin 81mg -atorvastatin 40 mg #asthma, not under acute exacerbation -influenza/covid tests negative -chest xray shows: No acute cardiopulmonary abnormality. -solu medrol 500mg given once -med neb albuterol 2.5mg Q8 p.r.n #slow transit constipation -ct abd/pelvis shows: Fecal retention in the colon suggestive of constipation. -mirilax 17g p.o #History of nephrolithiasis Kidney ultrasound ordered, results pending #fibroid uterus -Seen in CT abd/pelvis -outpt followup with OBGYN #Multilevel thoracic spondylosis -seen in Chest xray -outpt followup GI prophylaxis: Pantoprazole DVT prophylaxis: Not indicated, patient is ambulatory Diet: Regular Goals of care discussed with the patient for more than 27 minutes: Full code s tatus Case discussed with , patient and RN Plan discussed with: Patient, Other (RN) My Orders Orders - JERRICA SMITH RESIDENT Procedure Category Date Status Time Regular Diet DIET 01/21/25 Transmitted Breakfast Brain Head Wo Contrast MRI 01/20/25 Logged 19:03 Date of Service: Jan 21, 2025 Billing Provider: DUANE YOUNG MD Common Visit Codes: [id number] INP/OBS CARE (HIGH) JERRICA SMITH Jan 20, 2025 21:14 BRIONNA RIGGINS RESIDENT Jan 21, 2025 08:54 DUANE YOUNG MD Jan 23, 2025 22:01
[2025-01-20 21:41] LABS: Amphetamine Screen, Urine Neg (NEGATIVE); Barbiturate Scree,Urine Neg (NEGATIVE); Benzodiazephine Screen, Urine Neg (NEGATIVE); Cannabinoid Screen, Urine Neg (NEGATIVE); Cocaine Screen, Urine Neg (NEGATIVE); Opiate Scree,Urine Neg (NEGATIVE); Phencyclidine Screen, Urine Neg (NEGATIVE)
[2025-01-20] MEDS: LOSARTAN POTASSIUM 50 MG TAB PO SCH (23:29)
[2025-01-20] MEDS: ATORVASTATIN 20 MG TAB PO SCH (23:29)
[2025-01-20 23:31] VITALS: BP 157/90; PULSE 58; RESP 20; TEMP 97.6; O2SAT 100
[2025-01-21] VITALS (11 sets, daily range): BP systolic 126–161; BP diastolic 55–84; PULSE 56–75; RESP 16–18; TEMP 97.6–98.1; O2SAT 95–99
[2025-01-21] MEDS: ACETAMINOPHEN 500 MG TAB or CAP PO PRN (00:06)
[2025-01-21] MEDS: POLYETHYLENE GLYCOL 17 GM PWDR PO ONE (00:16)
[2025-01-21] MEDS ORDERED: ERGOCALCIFEROL 50,000 UNIT(1.25MG) CAP PO SCH (08:15)
[2025-01-21] MEDS: ASPirin-EC 81 mg tab PO SCH (08:22)
[2025-01-21] MEDS: PANTOPRAZOLE 40 MG TAB PO SCH (08:22)
[2025-01-21] MEDS: METOPROLOL TARTRATE 50 MG TAB PO SCH (08:23)
[2025-01-21] MEDS: SODIUM CHLORIDE 0.9% 1,000 ML IV ONE (09:00)
--- NOTE | 2025-01-21 09:45 | DVH ---
EXAMINATION: MRI BRAIN HEAD WO CONTRAST INDICATION: multiple sclerosis COMPARISON: CT HEAD WITHOUT CONTRAST on DOS: 06/08/23 TECHNIQUE: Multiplanar, multisequence magnetic resonance imaging of the brain was performed without the use of i ntravenous contrast. FINDINGS: No evidence of acute infarct. No intracranial hemorrhage. No mass effect. There are several periventricular and scattered subcortical T2/FLAIR white matter hyperintensities, t he largest in the left frontal lobe measuring 12 x 12 mm. There is no mass effect. The ventricles and sulci are normal in size for age. Clear basal cisterns. Flow voids in the major intracranial vessels are maintained. No abnormality of the orbits. Paranasal sinuses and mastoid air cells are clear. No abnormality of the visualized osseous structures and extracranial soft tissues. IMPRESSION: 1. No acute infarct, intracranial hemorrhage, mass effect, or hydrocephalus. 2. Scattered T2/FLAIR white matter hyperintensities, the largest in the left frontal lobe measuring 1 2 x 12 mm. Given the provided history, findings are likely in keeping with demyelinating disease / mu ltiple sclerosis.
--- NOTE | 2025-01-21 10:23 | DVH ---
INDICATION: Rule out nephrolithiasis TECHNIQUE: Multiple real-time sonographic images of the kidneys and bladder were obtained. COMPARISON: US PELVIC on DOS: 11/05/24, US KIDNEY on DOS: 11/05/24, CT ABD PELVIS WO CONTRAST on DOS: 1 05/16/21, CT ABD PELVIS WO CONTRAST on DOS: 10/29/21, KUB ABDOMEN SINGLE VIEW on DOS: 07/05/21 FINDINGS: The right kidney measures 9 cm in length, which is normal in size. There is normal echogeni city of the right kidney. No hydronephrosis. Subcentimeter nonobstructing right renal stone. The left kidney measures 9 cm in length, which is normal in size. There is normal echogenicity of the left kidney. No hydronephrosis. No large intraluminal masses are seen in the bladder. Prior to voiding the bladder volume measures vo lume 523 cc. IMPRESSION: Nonobstructing right renal calculi. No hydronephrosis.
[2025-01-21 10:42] LABS: Hematocrit 41.9 % (36.0-46.0); Hemoglobin 14.5 g/dL (12.2-16.2); Mean Corpuscular Hemoglobin 30.2 pg (28.0-32.0); Mean Corpuscular Volume 87.6 fL (80.0-100.0); Nucleated Red Blood Cells % 0.0 %
[2025-01-21 10:49] LABS: Anion Gap 10 (5-15); Carbon Dioxide 26 mmol/L (20-31); Chloride 103 mmol/L (98-107); Potassium 3.9 mmol/L (3.5-5.1); Sodium 139 mmol/L (136-145)
[2025-01-21 10:50] LABS: Calcium 10.1 mg/dL (8.7-10.4)
[2025-01-21 10:55] LABS: BUN/Creatinine Ratio 10.8 (10.0-20.0)
[2025-01-21 10:56] LABS: Blood Urea Nitrogen 9 mg/dL (9-23); Glucose 122 mg/dL (74-106)
[2025-01-21] MEDS: GABAPENTIN 100 MG CAP PO ONE (12:33)
[2025-01-21] MEDS: BACLOFEN 10 MG TAB PO ONE (12:34)
[2025-01-21] MEDS: BACLOFEN 10 MG TAB PO SCH (16:02)
--- NOTE | 2025-01-21 17:14 | DVHPNRES ---
Progress Note Date Seen: Jan 21, 2025 Resident Creating Document: JERRICA SMITH RESIDENT Medical Necessity Reason Pt with a Central, PICC or Fol: No Subjective Review of Systems 54-year-old female with previous history of multiple sclerosis on monoclonal antibody treatment, hypothyroidism, dyslipidemia, stroke with left-sided weakness and tingling numbness, asthma, fibroid uterus presented to the ER with complaints of severe neck and back pain, initially 10/10 in intensity, later 7/10. This pain is related to flare-up of multiple sclerosis. She was diagnosed with multiple sclerosis in May this year. In previous episode she also had visual problems including blurry vision, this time she has no vision abnormality. She denies any chest pain, shortness of breath, fever, abdominal pain or any other complaints today. Past medical history: Multiple sclerosis, stroke, hypothyroidism Past surgical history: Thyroid surgery Smoking history: Alcohol: Drugs: Kesimpta Home medications: Metoprolol 50, atorvastatin 40, vitamin D3 11735, aspirin 81, losartan 50 PCP: Dr.Charmaine Panchal Full code The patient was seen and examined at bedside. Overnight events were reviewed. Patient's report having on moderate neck pain. She denies any chest pain, shortness of breath, fever, abdominal pain or any other complaints today. Objective vital signs Vital Sign Date Time Temp Pulse Resp B/P (MAP) Pulse Ox O2 Delivery O2 Flow Rate FiO2 01/21/25 13:00 98.0 56 17 144/80 (101) 96 98.0 01/21/25 10:30 Room Air 0.0 01/21/25 10:30 21 Total Intake and Output 01/20/25 01/20/25 01/21/25 15:00 23:00 07:00 Intake Total 0 ml Balance 0 ml medications Current Medications Medications Dose Ordered Sig/Warren Route Start Time Stop Time Status Last Admin Dose Admin Acetaminophen 500 mg Q6HP PRN PO 01/20/25 18:30 01/21/25 08:23 500 MG Aspirin 81 mg DAILY PO 01/21/25 10:00 01/21/25 08:22 81 MG Losartan Potassium 50 mg BID PO 01/20/25 22:00 01/21/25 08:23 50 MG Metoprolol Tartrate 50 mg DAILY PO 01/21/25 10:00 01/21/25 08:23 50 MG Pantoprazole Sodium 40 mg DAILY PO 01/21/25 10:00 01/21/25 08:22 40 MG Atorvastatin Calcium 40 mg HS PO 01/20/25 22:00 01/20/25 23:29 40 MG Patient Own Medication 1 cap QWEEKLY PO 01/20/25 18:30 UNV Patient Own Medication 2 tab UD PRN PO 01/20/25 18:30 Albuterol 2.5 mg Q8HPRN PRN NEB 01/20/25 19:45 Baclofen 5 mg Q8HR PO 01/21/25 14:00 01/21/25 16:02 5 MG Gabapentin 100 mg DAILY PO 01/22/25 10:00 Ergocalciferol 50,000 unit QWEEKLY PO 01/26/25 08:00 Examination Pt is lying on bed General Appearance: Alert, Oriented X3, Cooperative, Mild distress HEENT: Atraumatic, Mucous membranes moist/pink Respiratory: Clear to auscultation, Normal air movement, No added sounds Cardiovascular: Regular rate, Normal S1, Normal S2, No murmurs Abdominal/ : Active bowel sounds, Soft, no distention, no tenderness Extremities: No edema, Normal pulses, No tenderness/swelling Skin: No Significant rash, except past surgical scars Neuro: Normal speech, sensorimotor deficits none Psych/Mental Status: Mental status NL, Mood NL Nurse was there as lead case manager during examination laboratory and microbiology Laboratory Tests 01/21/25 10:25 Test 01/21/25 10:25 Range/Units Serum Glucose 122 H 74-106 mg/dL Labs and/or images reviewed: Labs reviewed by me, Image(s) reviewed by me Problem List/Assessment/Plan Problem List/Assessment/Plan #Rule out Multiple sclerosis exacerbaion -back and neck pain -MRI: No acute infarct, intracranial hemorrhage, mass effect, or hydrocephalus. Scattered T2/FLAIR white matter hyperintensities, the largest in the left frontal lobe measuring 12 x 12 mm. Given the provided history, findings are likely in keeping with demyelinating disease / multiple sclerosis. - neurology consulted: Further management based on Neurology recommendations -Baclofen, gabapentin #lactic acidosis -IV fluid -2.6>2.9>1.5 #hypertension -continue p.o losartan 50mg bid, p.o metoprolol 50mg od #dyslipidemia -continue atorvastatin 40mg HS #history of stroke with left-sided weakness -continue aspirin 81mg -atorvastatin 40 mg #asthma, not under acute exacerbation -influenza/covid tests negative -chest xray shows: No acute cardiopulmonary abnormality. -solu medrol 500mg given once -med neb albuterol 2.5mg Q8 p.r.n #slow transit constipation -ct abd/pelvis shows: Fecal retention in the colon suggestive of constipation. -mirilax 17g p.o #History of nephrolithiasis Kidney ultrasound ordered, results pending #fibroid uterus -Seen in CT abd/pelvis -outpt followup with OBGYN #Multilevel thoracic spondylosis -seen in Chest xray -outpt followup GI prophylaxis: Pantoprazole DVT prophylaxis: Not indicated, patient is ambulatory Diet: Regular Goals of care discussed with the patient for more than 27 minutes: Full code status Case discussed with , patient and RN Plan discussed with: Patient, Other (RN) My Orders My Orders Orders - JERRICA SMITH RESIDENT Procedure Category Date Status Time Regular Diet DIET 01/21/25 Transmitted Breakfast Brain Head Wo Contrast MRI 01/21/25 Resulted 19:03 Baclofen Tablet PHA 01/21/25 In Process (Liorisal Tablet) 14:00 Gabapentin Capsule PHA 01/22/25 In Process (Neurontin Capsule) 10:00 Basic Metabolic Panel LAB 01/22/25 Verified 04:00 Complete Blood Count LAB 01/22/25 Verified 04:00 Date of Service: Jan 21, 2025 Billing Provider: DUANE YOUNG MD Common Visit Codes: [id number] INP/OBS CARE(HIGH) JERRICA SMITH Jan 21, 2025 17:14 BRIONNA RIGGINS Jan 24, 2025 14:38 DUANE YOUNG MD Jan 25, 2025 10:18
[2025-01-22] VITALS (10 sets, daily range): BP systolic 117–141; BP diastolic 71–97; PULSE 56–78; RESP 17–19; TEMP 97.2–99.1; O2SAT 98–100
[2025-01-22 07:07] LABS: Anion Gap 8 (5-15); Carbon Dioxide 28 mmol/L (20-31); Chloride 105 mmol/L (98-107); Potassium 4.2 mmol/L (3.5-5.1); Sodium 141 mmol/L (136-145)
[2025-01-22 07:08] LABS: Calcium 9.5 mg/dL (8.7-10.4)
[2025-01-22 07:13] LABS: BUN/Creatinine Ratio 14.1 (10.0-20.0); Blood Urea Nitrogen 13 mg/dL (9-23); Glucose 92 mg/dL (74-106)
[2025-01-22 07:15] LABS: Hematocrit 39.2 % (36.0-46.0); Hemoglobin 13.6 g/dL (12.2-16.2); Mean Corpuscular Hemoglobin 30.2 pg (28.0-32.0); Mean Corpuscular Volume 87.4 fL (80.0-100.0); Nucleated Red Blood Cells % 0.0 %
[2025-01-22] MEDS: GABAPENTIN 100 MG CAP PO SCH (10:04)
--- NOTE | 2025-01-22 20:00 | DVHPNRES ---
Progress Note Date Seen: Jan 22, 2025 Resident Creating Document: JERRICA SMITH RESIDENT Medical Necessity Reason Pt with a Central, PICC or Fol: No Subjective Review of Systems 54-year-old female with previous history of multiple sclerosis on monoclonal antibody treatment, hypothyroidism, dyslipidemia, stroke with left-sided weakness and tingling numbness, asthma, fibroid uterus presented to the ER with complaints of severe neck and back pain, initially 10/10 in intensity, later 7/10. This pain is related to flare-up of multiple sclerosis. She was diagnosed with multiple sclerosis in May this year. In previous episode she also had visual problems including blurry vision, this time she has no vision abnormality. She denies any chest pain, shortness of breath, fever, abdominal pain or any other complaints today. Past medical history: Multiple sclerosis, stroke, hypothyroidism Past surgical history: Thyroid surgery Smoking history: Alcohol: Drugs: Home medications: Metoprolol 50, atorvastatin 40, vitamin D3 17802, aspirin 81, losartan 50, Kesimpta PCP: Dr.Charmaine Panchal Full code The patient was seen and examined at bedside. Overnight events were reviewed. Patient's report having on moderate neck pain, dizziness, weakness. She denies any chest pain, shortness of breath, fever, abdominal pain or any other complaints today. Objective vital signs Vital Sign Date Time Temp Pulse Resp B/P (MAP) Pulse Ox O2 Delivery O2 Flow Rate FiO2 01/22/25 17:00 98.0 72 18 126/76 (93) 99 98.0 01/22/25 10:30 Room Air 01/22/25 10:30 0 21 Total Intake and Output 01/21/25 01/21/25 01/22/25 15:00 23:00 07:00 Intake Total 1235 ml 550 ml Balance 1235 ml 550 ml medications Current Medications Medications Dose Ordered Sig/Warren Route Start Time Stop Time Status Last Admin Dose Admin Acetaminophen 500 mg Q6HP PRN PO 01/20/25 18:30 01/22/25 10:04 500 MG Aspirin 81 mg DAILY PO 01/21/25 10:00 01/22/25 10:04 81 MG Losartan Potassium 50 mg BID PO 01/20/25 22:00 01/22/25 10:07 50 MG Metoprolol Tartrate 50 mg DAILY PO 01/21/25 10:00 01/22/25 10:05 50 MG Pantoprazole Sodium 40 mg DAILY PO 01/21/25 10:00 01/22/25 10:04 40 MG Atorvastatin Calcium 40 mg HS PO 01/20/25 22:00 01/21/25 21:20 40 MG Patient Own Medication 1 cap QWEEKLY PO 01/20/25 18:30 UNV Patient Own Medication 2 tab UD PRN PO 01/20/25 18:30 Albuterol 2.5 mg Q8HPRN PRN NEB 01/20/25 19:45 Baclofen 5 mg Q8HR PO 01/21/25 14:00 01/22/25 15:32 5 MG Gabapentin 100 mg DAILY PO 01/22/25 10:00 01/22/25 10:04 100 MG Ergocalciferol 50,000 unit QWEEKLY PO 01/26/25 08:00 Examination Pt is lying on bed General Appearance: Alert, Oriented X3, Cooperative, Mild distress HEENT: Atraumatic, Mucous membranes moist/pink Respiratory: Clear to auscultation, Normal air movement, No added sounds Cardiovascular: Regular rate, Normal S1, Normal S2, No murmurs Abdominal/ : Active bowel sounds, Soft, no distention, no tenderness Extremities: No edema, Normal pulses, No tenderness/swelling Skin: No Significant rash, except past surgical scars Neuro: Normal speech, sensorimotor deficits none Psych/Mental Status: Mental status NL, Mood NL Nurse was there as casing blower during examination laboratory and microbiology Laboratory Tests 01/22/25 05:50 Test 01/22/25 05:50 Range/Units Serum Glucose 92 74-106 mg/dL Problem List/Assessment/Plan Problem List/Assessment/Plan #Relapsing and remitting Multiple sclerosis -back and neck pain -MRI: No acute infarct, intracranial hemorrhage, mass effect, or hydrocephalus. Scattered T2/FLAIR white matter hyperintensities, the largest in the left frontal lobe measuring 12 x 12 mm. Given the provided history, findings are likely in keeping with demyelinating disease / multiple sclerosis. -Ordered cervical and thoracic spine MRI -Neurology consulted: Further management based on Neurology recommendations -Baclofen, gabapentin #lactic acidosis -IV fluid -2.6>2.9>1.5 #hypertension -continue p.o losartan 50mg bid, p.o metoprolol 50mg od #dyslipidemia -continue atorvastatin 40mg HS #history of stroke with left-sided weakness -continue aspirin 81mg -atorvastatin 40 mg #asthma, not under acute exacerbation -influenza/covid tests negative -chest xray shows: No acute cardiopulmonary abnormality. -solu medrol 500mg given once -med neb albuterol 2.5mg Q8 p.r.n #slow transit constipation -ct abd/pelvis shows: Fecal retention in the colon suggestive of constipation. -mirilax 17g p.o #History of nephrolithiasis Kidney ultrasound ordered, results pending #fibroid uterus -Seen in CT abd/pelvis -outpt followup with OBGYN #Multilevel thoracic spondylosis -seen in Chest xray -outpt followup GI prophylaxis: Pantoprazole DVT prophylaxis: Not indicated, patient is ambulatory Diet: Regular Goals of care discussed with the patient for more than 27 minutes: Full code status Case discussed with , patient and RN Plan discussed with: Patient (RN), Other Date of Service: Jan 22, 2025 Billing Provider: DUANE YOUNG MD Common Visit Codes: [id number] INP/OBS CARE(HIGH) JERRICA SMITH RESIDENT Jan 22, 2025 20:00 BRIONNA RIGGINS RESIDENT Jan 24, 2025 14:40 DUANE YOUNG MD Jan 25, 2025 10:39
[2025-01-23] VITALS (11 sets, daily range): BP systolic 117–130; BP diastolic 73–87; PULSE 57–78; RESP 17–18; TEMP 97.5–98.4; O2SAT 97–100
[2025-01-23 07:09] LABS: Anion Gap 8 (5-15); Carbon Dioxide 28 mmol/L (20-31); Chloride 104 mmol/L (98-107); Potassium 4.1 mmol/L (3.5-5.1); Sodium 140 mmol/L (136-145)
[2025-01-23 07:10] LABS: Calcium 9.4 mg/dL (8.7-10.4)
[2025-01-23 07:15] LABS: BUN/Creatinine Ratio 16.3 (10.0-20.0); Blood Urea Nitrogen 13 mg/dL (9-23); Glucose 88 mg/dL (74-106)
[2025-01-23 07:17] LABS: Hematocrit 38.3 % (36.0-46.0); Hemoglobin 13.6 g/dL (12.2-16.2); Mean Corpuscular Hemoglobin 31.0 pg (28.0-32.0); Mean Corpuscular Volume 86.8 fL (80.0-100.0); Nucleated Red Blood Cells % 0.0 %
--- NOTE | 2025-01-23 13:15 | DVH ---
EXAM: MRI CERVICAL WO CONTRAST INDICATION: R/O acute spinal cord Multiple sclerosis TECHNIQUE: Multiplanar, multisequence imaging of the cervical spine without contrast. COMPARISON: None FINDINGS: [ANATOMY]: Straightening of the normal cervical lordosis, which may be seen in the setting of patient positioning versus muscular spasm. [BONES]: The vertebral bodies are normal in height, alignment, and marrow signal. [CERVICAL CORD]: The cervical cord is normal in signal and morphology. [DISCS]: Diffuse disc desiccation. [FACETS]: Unremarkable [OTHER]: There is no prevertebral soft tissue swelling. The visualized paraspinal soft tissues are no rmal. [C2-C3]: Unremarkable. [C3-C4]: Unremarkable. [C4-C5]: Trace disc bulge [C5-C6]: Trace disc bulge [C6-C7]: Trace disc bulge [C7-T1]: Unremarkable. IMPRESSION: 1. No acute cervical spine abnormalities. 2. No abnormal cord signal.
--- NOTE | 2025-01-23 13:37 | DVH ---
EXAM: MRI THORACIC SPINE WITHOUT CLINICAL HISTORY: R/O acute MS COMPARISON: None TECHNIQUE: MRI imaging of the thoracic spine was performed on a MR imaging system without intravenous contrast. FINDINGS: Adequate Study Quality Alignment: Normal. Vertebrae: Normal. Vertebral Marrow: Normal. Epidural Space: Normal. Spinal Cord: Normal. Discs: Normal. Ligaments: Normal. Other None. IMPRESSION: Normal MRI of the Thoracic Spine.
--- NOTE | 2025-01-23 14:42 | DVHPNRES ---
Progress Note Date Seen: Jan 23, 2025 Resident Creating Document: JERRICA SMITH RESIDENT Medical Necessity Reason Pt with a Central, PICC or Fol: No Subjective Review of Systems 54-year-old female with previous history of multiple sclerosis on monoclonal antibody treatment, hypothyroidism, dyslipidemia, stroke with left-sided weakness and tingling numbness, asthma, fibroid uterus presented to the ER with complaints of severe neck and back pain, initially 10/10 in intensity, later 7/10. This pain is related to flare-up of multiple sclerosis. She was diagnosed with multiple sclerosis in May this year. In previous episode she also had visual problems including blurry vision, this time she has no vision abnormality. She denies any chest pain, shortness of breath, fever, abdominal pain or any other complaints today. Past medical history: Multiple sclerosis, stroke, hypothyroidism Past surgical history: Thyroid surgery Smoking history: Alcohol: Drugs: Home medications: Metoprolol 50, atorvastatin 40, vitamin D3 83271, aspirin 81, losartan 50, Kesimpta PCP: Dr.Charmaine Panchal Full code The patient was seen and examined at bedside. Overnight events were reviewed. Patient's reports having on dizziness and weakness. She denies any chest pain, shortness of breath, fever, abdominal pain or any other complaints today. Objective vital signs Vital Sign Date Time Temp Pulse Resp B/P (MAP) Pulse Ox O2 Delivery O2 Flow Rate FiO2 01/23/25 13:00 97.8 57 18 118/73 (88) 98 97.8 01/23/25 11:45 Room Air 0.0 01/23/25 11:45 21 Total Intake and Output 01/22/25 01/22/25 01/23/25 15:00 23:00 07:00 Intake Total 960 ml 450 ml Balance 960 ml 450 ml medications Current Medications Medications Dose Ordered Sig/Warren Route Start Time Stop Time Status Last Admin Dose Admin Acetaminophen 500 mg Q6HP PRN PO 01/20/25 18:30 01/23/25 01:41 500 MG Aspirin 81 mg DAILY PO 01/21/25 10:00 01/23/25 09:53 81 MG Losartan Potassium 50 mg BID PO 01/20/25 22:00 01/23/25 09:52 50 MG Metoprolol Tartrate 50 mg DAILY PO 01/21/25 10:00 01/23/25 09:54 50 MG Pantoprazole Sodium 40 mg DAILY PO 01/21/25 10:00 01/23/25 09:54 40 MG Atorvastatin Calcium 40 mg HS PO 01/20/25 22:00 01/22/25 21:23 40 MG Patient Own Medication 1 cap QWEEKLY PO 01/20/25 18:30 UNV Patient Own Medication 2 tab UD PRN PO 01/20/25 18:30 Albuterol 2.5 mg Q8HPRN PRN NEB 01/20/25 19:45 Baclofen 5 mg Q8HR PO 01/21/25 14:00 01/23/25 14:25 5 MG Gabapentin 100 mg DAILY PO 01/22/25 10:00 01/23/25 09:54 100 MG Ergocalciferol 50,000 unit QWEEKLY PO 01/26/25 08:00 Examination Pt is lying on bed General Appearance: Alert, Oriented X3, Cooperative, Mild distress HEENT: Atraumatic, Mucous membranes moist/pink Respiratory: Clear to auscultation, Normal air movement, No added sounds Cardiovascular: Regular rate, Normal S1, Normal S2, No murmurs Abdominal/ : Active bowel sounds, Soft, no distention, no tenderness Extremities: No edema, Normal pulses, No tenderness/swelling Skin: No Significant rash, except past surgical scars Neuro: Normal speech, sensorimotor deficits none Psych/Mental Status: Mental status NL, Mood NL Nurse was there as metal bonder during examination laboratory and microbiology Laboratory Tests 01/23/25 06:35 Test 01/23/25 06:35 Range/Units Serum Glucose 88 74-106 mg/dL Labs and/or images reviewed: Labs reviewed by me, Image(s) reviewed by me Problem List/Assessment/Plan Problem List/Assessment/Plan #Relapsing and remitting Multiple sclerosis -back and neck pain -MRI: No acute infarct, intracranial hemorrhage, mass effect, or hydrocephalus. Scattered T2/FLAIR white matter hyperintensities, the largest in the left frontal lobe measuring 12 x 12 mm. Given the provided history, findings are likely in keeping with demyelinating disease / multiple sclerosis. -Ordered cervical and thoracic spine MRI: No acute findings -Neurology consulted: Further management based on Neurology recommendations -Baclofen, gabapentin #lactic acidosis -IV fluid -2.6>2.9>1.5 #hypertension -continue p.o losartan 50mg bid, p.o metoprolol 50mg od #dyslipidemia -continue atorvastatin 40mg HS #history of stroke with left-sided weakness -continue aspirin 81mg -atorvastatin 40 mg #asthma, not under acute exacerbation -influenza/covid tests negative -chest xray shows: No acute cardiopulmonary abnormality. -solu medrol 500mg given once -med neb albuterol 2.5mg Q8 p.r.n #slow transit constipation -ct abd/pelvis shows: Fecal retention in the colon suggestive of constipation. -mirilax 17g p.o #History of nephrolithiasis Kidney ultrasound ordered, results pending #fibroid uterus -Seen in CT abd/pelvis -outpt followup with OBGYN #Multilevel thoracic spondylosis -seen in Chest xray -outpt followup GI prophylaxis: Pantoprazole DVT prophylaxis: Not indicated, patient is ambulatory Diet: Regular Goals of care discussed with the patient for more than 27 minutes: Full code status Case discussed with , patient and RN Plan discussed with: Patient, Other (RN) Date of Service: Jan 23, 2025 Billing Provider: DUANE YOUNG MD Common Visit Codes: [id number] INP/OBS CARE(HIGH) JERRICA SMITH RESIDENT Jan 23, 2025 14:42 BRIONNA RIGGINS RESIDENT Jan 24, 2025 14:41 DUANE YOUNG MD Jan 25, 2025 10:49
--- NOTE | 2025-01-23 20:34 | DVHINCON2 ---
Date of service: Jan 23, [address] Lezama Reason for Consultation Questionable exacerbation of MS History of Present Illness Ms. Mcintosh is a 54 years old right-handed female with a history of hypertension, asthma, anemia, she came to the hospital on 01/20/25 with a chief complaint of body pain which she believes is due to an MS pain exacerbation. At this time, he is alert and fully oriented, she provided the following history I saw her on 08/16/2020 for TIA (MRI: No acute stroke) Since 01/18/2025, she has constant bad pain whole-body neck down, which is similar to her MS symptoms, and she worried about possible MS flares up Because of diffuse body pain, Dr. Redding, after obtaining obtained MR with IV dye, said she had multiple sclerosis, and she has been on a medication, according to our record, Kesimpta. She was reports constant blurry vision since 2023. Since age of early 30s, she has periodic intense headache with heightened sensitivity to lights, noise, this happens 3 times monthly, about one week each time, she takes ibuprofen, Tylenol, Tylenol with codeine for headache control, she does not remember, I noticed sumatriptan her medication list, and have advised her to stopped taking and discussed with Dr. Redding for other medications She denied history of seizure, stroke Urinalysis, 01/20/2025: Unremarkable UDS, 01/20/2025: Negative CBC, 01/23/2025: Unremarkable CMP, 01/20/2025: Unremarkable TG/CHOL/LDL/HDL, 08/2020: 51/159/83/65, 01/20/2025: 64/135/44/71 Iron, 08/16/2020: 27 Vitamin B12, 08/2020: 1144, , 01/20/25: 1038 Folic acid, 08/16/2020: 13.37, TSH, 08/2020: 1.021, TSH, 01/20/2025: 0.33 FT four, 01/20/2025: 098 EEG, 08/18/2020: Normal Echocardiogram, 08/16/2020: EF 60% Chest x-ray, 01/20/2025: No acute cardiopulmonary abnormality. CT head, 08/16/2020: 1. No acute intracranial hemorrhage, mass effect or midline shift. 2. Probable old lacunar infarcts in bilateral thalami, left being more prominent. If there is clinical concern for acute stroke, recommend MRI brain for further evaluation MRI head, 08/16/2020: 1. No evidence of acute intracranial pathology. 2. Old lacunar infarcts in bilateral thalami. Old bilateral right cerebellar infarcts. 3. Minimal chronic microvascular ischemic disease in the periventricular and deep white matter MRI head, 01/21/2025: 1. No acute infarct, intracranial hemorrhage, mass effect, or hydrocephalus. 2. Scattered T2/FLAIR white matter hyperintensities, the largest in the left frontal lobe measuring 12 x 12 mm. Given the provided history, findings are likely in keeping with demyelinating disease / multiple sclerosis MRI C-spine, 01/23/2025: 1. No acute cervical spine abnormalities. 2. No abnormal cord signal MRI T-spine, 01/23/2025: Normal MRI of the Thoracic Spine. Past Medical History Hypertension, dyslipidemia, asthma, anemia, uterine fibroids,, kidney stone Past Surgical History Rotatory cuff repair, right knee surgery, tubal ligation, thyroidectomy, tonsillectomy Family History: Hypertension G8 MOTHER Family History Hypertension, no family history of migraine headache Social History She is a nontobacco smoker, no history of alcohol recreational substance abuse Allergies: Coded Allergies: NO KNOWN ALLERGIES (Unverified , 11/13/09) Home Meds Active Scripts Ibuprofen Micronized (Ibuprofen) 400 Mg Tab, 400 MG PO BID for 5 Days, #10 TAB Prov:FRANCA VILLANUEVA RESDIENT 11/07/24 Pantoprazole Sodium Sesquihydr (Protonix) 40 Mg Tab, 40 MG PO DAILY for 5 Days, #5 TAB Prov:FRANCA VILLANUEVA RESDIENT 11/07/24 Cyclobenzaprine Hcl (Cyclobenzaprine Hcl) 10 Mg Tab, 10 MG PO HS for 5 Days, #5 TAB Prov:FRANCA VILLANUEVA RESDIENT 11/07/24 Diclofenac Sodium (Topical) (Voltaren Arthritis Pain) 1 % Gel, 1 GRAMS EX QIDP for 10 Days, #60 GRAMS 0 Refills Prov:PATEL JARRELL NUT GRADER 07/07/24 Acetaminophen (Acetaminophen) 500 Mg Tab, 500 MG PO Q6HP PRN for 30 Days, #120 TAB 0 Refills Prov:PATEL JARRELL NUT GRADER 07/07/24 Hydrocortone (Hydrocortisone 2.5%) 1 Applic Ap, 1 APPLIC TOP BID, #1 CRE 0 Refills Prov:TEA KNOX 01/02/24 Cetirizine HCl (Eql All Day Allergy) 10 Mg Tab, 10 MG PO DAILY PRN, #24 TAB 0 Refills Prov:TEA KNOX 01/02/24 Meclizine Hcl (Meclizine Hcl) 25 Mg Tab, 25 MG PO Q8HPRN PRN for 30 Days, #90 TAB Prov:JULIANNE WELLS MD 02/04/23 Sumatriptan Succinate (Imitrex) 50 Mg Tab, 2 TAB PO UD, #9 TAB 1 Refill 100 mg to be utilized at the inception of the headache. Patient may repeat the 100 mg dose after 1 hour if ineffective. Maximum dosing is 200 mg a day Prov:BAYRON JAMES PAC 04/12/22 Aspirin (ASPIRIN 81) 81 Mg Tab, 81 MG OR DAILY, #30 TAB Prov:BAYRON JAMES PAC 04/12/22 Phenazopyridine HCl (Phenazopyridine Hydrochlo) 200 Mg Tab, 200 MG PO TID, #6 TAB Prov:CAMILO YEPEZ 01/28/22 Reported Medications Metoprolol Tartrate (Metoprolol Tartrate) 50 Mg Tab, 50 MG PO, TAB 11/06/24 Losartan Potassium (Losartan Potassium) 50 Mg Tab, 1 TAB PO BID 10/29/21 Atorvastatin Calcium (ATORVASTATIN CALCIUM) 40 Mg Tab, 1 TAB PO DAILYPRN for . 10/29/21 Albuterol Sulfate (Albuterol Sulfate Hfa) 108 Mcg/Act Aer, INH 10/29/21 Hydrocodone-Acetaminophen (Hydrocodone Bitartrate/AC 5-217 mg/10Ml) 1 Liliana Liliana 10/29/21 Acetaminophen W/ Codeine (Tylenol #4 W/Codeine) 1 Tab Tb, 1 TAB PO Q6HPRN, TAB 07/03/21 Cholecalciferol (Vitamin D3) 50,000 Unit Cap, 1 CAP PO QWEEKLY 07/03/21 Current Medications Current Medications Medications (Trade) Dose Ordered Sig/Warren Route PRN Reason Start Time Stop Time Status Last Admin Ergocalciferol (Vitamin D 50,000 Unit) 50,000 unit QWEEKLY PO 01/26/25 08:00 Review of Systems As above, the other systems are negative Vital Signs Vital Signs Date Time Temp Pulse Resp B/P (MAP) Pulse Ox O2 Delivery O2 Flow Rate FiO2 01/23/25 19:17 98 Room Air* 0 21 21 01/23/25 19:17 65 18 01/23/25 17:00 97.9 130/76 (94) 97.9 Physical Exam GENERAL EXAM: General: the patient is well developed and nourished. No acute distress. HEENT: Normocephalic, neck is supple, no carotid bruits. No mass RESPIRATORY: Normal respiratory effort with symmetrical lung expansion. Lungs clear to auscultation. CARDIOVASCULAR: Regular rate and rhythm with no murmurs. S1, S2. ABDOMEN: Soft, nontender, normal bowel sound Diffuse tenderness to light palpation all over her body neck down NEUROLOGICAL: MENTAL STATUS: Awake and alert. Oriented to person, place, time and general circumstances. Able to give personal history SPEECH, LANGUAGE, HIGHER CORTICAL FUNCTION: no aphasia or dysathria. CRANIAL NERVES: #2: Intact visual de la torre to confrontation. The optic discs were sharp #3,4,6: Pupils are equal, round and reactive. EOMs full and conjugate. No nystagmus. #5: Facial sensation intact in all three divisions bilaterally. Mandibular strength intact. #7: Facial muscles symmetrical and strength intact. #8: Hearing grossly normal to voice. #9,10: Uvula and soft palate rise in the midline. Swallow and voice are normal. #11: Trapezius and sternomastoid strength intact bilaterally. #12: Tongue midline. No fasciculations or atrophy. SENSATION: Sensation to touch and pinprick is normal. MOTOR: Normal tone in the upper and lower extremity. Normal muscle bulk. No fasciculations. No abnormal movements or posturing. Muscle strength of the major groups in the upper extremities is 5/5. Muscle strength of the major groups in the lower extremities is 5/5. REFLEXES: Deep tendon reflexes are symmetrical. No pathological reflexes. CEREBELLAR/COORDINATION: Finger to nose are normal bilaterally. Gait: Deferred Labs/Diagnostic Data Labs Test 01/23/25 06:35 01/21/25 00:57 01/20/25 17:57 01/20/25 11:11 Range/Units White Blood Count 6.0 # 4.4-10.8 10^3/uL Red Blood Count 4.41 4.0-5.20 10^6/uL Hemoglobin 13.6 12.2-16.2 g/dL Hematocrit 38.3 36.0-46.0 % Mean Corpuscular Volume 86.8 80.0-100.0 fL Mean Corpuscular Hemoglobin 31.0 28.0-32.0 pg Mean Corpuscular Hemoglobin Concent 35.6 32.0-36.0 g/dL Red Cell Distribution Width 14.6 H 11.8-14.3 % Platelet Count 326 140-450 10^3/uL Mean Platelet Volume 7.8 6.9-10.8 fL Neutrophils (%) (Auto) 55.3 37.0-80.0 % Lymphocytes (%) (Auto) 36.1 10.0-50.0 % Monocytes (%) (Auto) 6.4 0.0-12.0 % Eosinophils (%) (Auto) 1.5 0.0-7.0 % Basophils (%) (Auto) 0.7 0.0-2.0 % Neutrophils # (Auto) 3.3 1.6-8.6 10 ^3/uL Lymphocytes # (Auto) 2.2 0.4-5.4 10 ^3/uL Monocytes # (Auto) 0.4 0-1.3 10 ^3/uL Eosinophils # (Auto) 0.1 0-0.8 10 ^3/uL Basophils # (Auto) 0 0-0.2 10 ^3/uL Nucleated Red Blood Cells 0.0 % Sodium Level 140 136-145 mmol/L Potassium Level 4.1 3.5-5.1 mmol/L Chloride Level 104 98-107 mmol/L Carbon Dioxide Level 28 20-31 mmol/L Anion Gap 8 5-15 Blood Urea Nitrogen 13 9-23 mg/dL Creatinine 0.80 0.550-1.02 mg/dL Glomerular Filtration Rate Calc 86 >90 mL/min BUN/Creatinine Ratio 16.3 10.0-20.0 Serum Glucose 88 74-106 mg/dL Calcium Level 9.4 8.7-10.4 mg/dL Lactic Acid Level 1.5 0.4-2.0 mmol/L Influenza Type A Antigen Negative Negative Influenza Type B Antigen Negative Negative SARS-CoV-2 Antigen (Rapid) Negative NEGATIVE Urine Color Yellow Yellow Urine Clarity Clear Clear Urine pH 5.5 5.0-9.0 Urine Specific Colt 1.028 1.001-1.035 Urine Protein Negative Negative Urine Ketones Negative Negative Urine Blood Negative Negative /uL Urine Nitrite Negative Negative Urine Bilirubin Negative Negative Urine Urobilinogen Normal Negative mg/dL Urine Leukocyte Esterase Negative Negative /uL Urine RBC 1 0 - 4 /hpf Urine Microscopic WBC 1 0-5 /HPF Urine Squamous Epithelial Cells Few <5 /hpf Urine Bacteria None seen None Seen /hpf Urine Mucus Few None Seen Urine Yeast (Budding) Occasional None Seen /hpf Urine Glucose Normal Normal mg/dL Urine Opiates Screen Neg NEGATIVE Urine Fentanyl Screen Neg NEGATIVE Urine Barbiturates Screen Neg NEGATIVE Urine Phencyclidine Screen Neg NEGATIVE Urine Amphetamines Screen Neg NEGATIVE Urine Benzodiazepines Screen Neg NEGATIVE Urine Cocaine Screen Neg NEGATIVE Urine Cannabinoids Screen Neg NEGATIVE Test 01/20/25 11:10 Range/Units Hemoglobin A1c 5.7 <5.7 % A1C Phosphorus Level 2.7 2.4-5.1 mg/dL Magnesium Level 1.8 1.6-2.6 mg/dL Total Bilirubin 0.3 0.2-1.0 mg/dL Aspartate Amino Transferase (AST) 18 13-40 U/L Alanine Aminotransferase (ALT) 17 7-40 U/L Alkaline Phosphatase 97 46-116 U/L Total Protein 8.2 5.7-8.2 g/dL Albumin 4.5 3.2-4.8 g/dL Triglycerides Level 64 < 150 mg/dL Cholesterol Level 135 < 200 mg/dL LDL Cholesterol 44 < 100 mg/dL HDL Cholesterol 71 H 40-59 mg/dL Vitamin B12 Level 1038 H 211-911 pg/mL Vitamin D 25-Hydroxy 78.2 30.0-100 ng/mL Thyroid Stimulating Hormone (TSH) 0.33 L 0.55-4.78 uIU/mL Free Thyroxine (T4) Calculated 0.98 0.89-1.76 ng/dL Assessment Diffuse body pain, rule out MS exacerbation Reported multiple sclerosis Chronic strokes Periodic intense headache/migraine headache Plan/Recommendation Monitoring Support treatment MRI brain scan with IV dye Solu-Medrol 1000 mg IV q.d. x followed by Medrol-Dosepak Aspirin 81 mg daily new line Lipitor 40 mg daily GI prophylaxis/Protonix DVT prophylaxis/Lovenox GI prophylaxis Current pain medication She has been advised to discuss with Dr. Redding Re: Preventive headache treatment, avoid triptan and ergot agent for headache More recommendation per clinical course Prognosis: Poor This medical document was created using an electronic medical record system with [employer] dictation system. Although this document has been carefully reviewed, there may still be some phonetic and typographical errors. These areas are purely typographical due to imperfections of the software programs, and do not reflect any compromise in the patient's medical care. Plan discussed with: Patient, Other JAQUELINE SIMMONS MD Jan 23, 2025 20:34
[2025-01-23] MEDS: methylPREDNISolone SOD SUCC 1,000 MG in SODIUM CHL 0.9% 250 ML IV ONE (21:15)
[2025-01-23] MEDS ORDERED: LORazepam 2MG/ML-1ML VIAL IV PRN (21:30)
[2025-01-23] MEDS: ENOXAPARIN SOD 40 MG/0.4 ML SYRINGE SC ONE (22:13)
[2025-01-24] VITALS (7 sets, daily range): BP systolic 125–136; BP diastolic 65–84; PULSE 56–78; RESP 17–20; TEMP 97.9–98.2; O2SAT 94–100
[2025-01-24 07:15] LABS: Hematocrit 42.2 % (36.0-46.0); Hemoglobin 14.6 g/dL (12.2-16.2); Mean Corpuscular Hemoglobin 30.1 pg (28.0-32.0); Mean Corpuscular Volume 86.9 fL (80.0-100.0); Nucleated Red Blood Cells % 0.1 %
[2025-01-24 07:17] LABS: Chloride 103 mmol/L (98-107); Potassium 4.5 mmol/L (3.5-5.1); Sodium 140 mmol/L (136-145)
[2025-01-24 07:18] LABS: Anion Gap 9 (5-15); Carbon Dioxide 28 mmol/L (20-31)
[2025-01-24 07:19] LABS: Calcium 9.9 mg/dL (8.7-10.4)
[2025-01-24 07:24] LABS: BUN/Creatinine Ratio 14.6 (10.0-20.0); Blood Urea Nitrogen 13 mg/dL (9-23); Glucose 149 mg/dL (74-106)
[2025-01-24] MEDS: ENOXAPARIN SOD 40 MG/0.4 ML SYRINGE SC SCH (09:28)
[2025-01-24] MEDS ORDERED: METH4PAK PO ×2 (13:33→13:34)
--- NOTE | 2025-01-24 13:59 | DVH ---
CLINICAL INDICATION: Multiple sclerosis. COMPARISON: MRI BRAIN HEAD WO CONTRAST on DOS: 01/21/25, CT HEAD WITHOUT CONTRAST on DOS: 06/08/23, CT HEAD WITHOUT CONTRAST on DOS: 02/01/23 TECHNIQUE: Multi planar postcontrast T1 weighted images of the brain were obtained. Coronal FLAIR tish ge was also obtained. 15 mL clariscan contrast was administered for the postcontrast images. The yecenia ent had recent noncontrast enhanced MRI on 01/21/2025. FINDINGS: Avidly enhancing mass, appears to be extra-axial on the postcontrast images adjacent to th e anterior aspect of the left frontal lobe with mass effect on the left frontal lobe. The enhancemen t associated with the mass is contiguous with enhancement along the dural surface, most consistent wi th a meningioma. The mass measures up to 1.5 cm in AP dimension, 2.0 cm in transverse dimension, and 2.2 cm in craniocaudal dimension. There is no enhancement associated with any of the lesions in the c erebral white matter seen on previous FLAIR sequence. There is no midline shift. Ventricles and basal cisterns appear within normal limits in size. Mild mucosal thickening of the paranasal sinuses. Orbi ts are grossly unremarkable. IMPRESSION: 1. Enhancing extra-axial mass along the left frontal convexity, most consistent with a meningioma, wi th associated mass effect on the anterior left frontal lobe as described above. 2. No enhancement associated with the white matter lesions seen on recent noncontrast enhanced MRI to suggest active demyelination. 3. No other abnormal postcontrast enhancement.
--- NOTE | 2025-01-24 15:20 | DVHDSRES ---
Discharge Summary Date of Admission Resident Creating Document: JERRICA SMITH Jan 20, 2025 at 15:19 Date of Discharge: Jan 24, 2025 Admitting Diagnosis Flare-up of multiple sclerosis Labs/Diagnostic Data: Laboratory Results Test 01/24/25 06:34 01/21/25 00:57 01/20/25 17:57 01/20/25 11:11 White Blood Count 6.6 10^3/uL (4.4-10.8) Red Blood Count 4.85 10^6/uL (4.0-5.20) Hemoglobin 14.6 g/dL (12.2-16.2) Hematocrit 42.2 % (36.0-46.0) Mean Corpuscular Volume 86.9 fL (80.0-100.0) Mean Corpuscular Hemoglobin 30.1 pg (28.0-32.0) Mean Corpuscular Hemoglobin Concent 34.6 g/dL (32.0-36.0) Red Cell Distribution Width 14.3 % (11.8-14.3) Platelet Count 381 10^3/uL (140-450) Mean Platelet Volume 8.2 fL (6.9-10.8) Neutrophils (%) (Auto) 85.6 % (37.0-80.0) Lymphocytes (%) (Auto) 13.1 % (10.0-50.0) Monocytes (%) (Auto) 0.8 % (0.0-12.0) Eosinophils (%) (Auto) 0.0 % (0.0-7.0) Basophils (%) (Auto) 0.5 % (0.0-2.0) Neutrophils # (Auto) 5.6 10 ^3/uL (1.6-8.6) Lymphocytes # (Auto) 0.9 10 ^3/uL (0.4-5.4) Monocytes # (Auto) 0.1 10 ^3/uL (0-1.3) Eosinophils # (Auto) 0 10 ^3/uL (0-0.8) Basophils # (Auto) 0 10 ^3/uL (0-0.2) Nucleated Red Blood Cells 0.1 % Sodium Level 140 mmol/L (136-145) Potassium Level 4.5 mmol/L (3.5-5.1) Chloride Level 103 mmol/L (98-107) Carbon Dioxide Level 28 mmol/L (20-31) Anion Gap 9 (5-15) Blood Urea Nitrogen 13 mg/dL (9-23) Creatinine 0.89 mg/dL (0.550-1.02) Glomerular Filtration Rate Calc 76 mL/min (>90) BUN/Creatinine Ratio 14.6 (10.0-20.0) Serum Glucose 149 mg/dL (74-106) Calcium Level 9.9 mg/dL (8.7-10.4) Lactic Acid Level 1.5 mmol/L (0.4-2.0) Influenza Type A Antigen Negative (Negative) Influenza Type B Antigen Negative (Negative) SARS-CoV-2 Antigen (Rapid) Negative (NEGATIVE) Urine Color Yellow (Yellow) Urine Clarity Clear (Clear) Urine pH 5.5 (5.0-9.0) Urine Specific [place] 1.028 (1.001-1.035) Urine Protein Negative (Negative) Urine Ketones Negative (Negative) Urine Blood Negative /uL (Negative) Urine Nitrite Negative (Negative) Urine Bilirubin Negative (Negative) Urine Urobilinogen Normal mg/dL (Negative) Urine Leukocyte Esterase Negative /uL (Negative) Urine RBC 1 /hpf (0 - 4) Urine Microscopic WBC 1 /HPF (0-5) Urine Squamous Epithelial Cells Few /hpf (<5) Urine Bacteria None seen /hpf (None Seen) Urine Mucus Few (None Seen) Urine Yeast (Budding) Occasional /hpf (None Urine Glucose Normal mg/dL (Normal) Urine Opiates Screen Neg (NEGATIVE) Urine Fentanyl Screen Neg (NEGATIVE) Urine Barbiturates Screen Neg (NEGATIVE) Urine Phencyclidine Screen Neg (NEGATIVE) Urine Amphetamines Screen Neg (NEGATIVE) Urine Benzodiazepines Screen Neg (NEGATIVE) Urine Cocaine Screen Neg (NEGATIVE) Urine Cannabinoids Screen Neg (NEGATIVE) Test 01/20/25 11:10 Hemoglobin A1c 5.7 % A1C (<5.7) Phosphorus Level 2.7 mg/dL (2.4-5.1) Magnesium Level 1.8 mg/dL (1.6-2.6) Total Bilirubin 0.3 mg/dL (0.2-1.0) Aspartate Amino Transferase (AST) 18 U/L (13-40) Alanine Aminotransferase (ALT) 17 U/L (7-40) Alkaline Phosphatase 97 U/L (46-116) Total Protein 8.2 g/dL (5.7-8.2) Albumin 4.5 g/dL (3.2-4.8) Triglycerides Level 64 mg/dL (< 150) Cholesterol Level 135 mg/dL (< 200) LDL Cholesterol 44 mg/dL (< 100) HDL Cholesterol 71 mg/dL (40-59) Vitamin B12 Level 1038 pg/mL (211-911) Vitamin D 25-Hydroxy 78.2 ng/mL (30.0-100) Thyroid Stimulating Hormone (TSH) 0.33 uIU/mL (0.55-4.78) Free Thyroxine (T4) Calculated 0.98 ng/dL (0.89-1.76) Other Laboratory Tests 01/24/25 06:34 Brief Hx & Hospital Course: 54-year-old female with previous history of multiple sclerosis on monoclonal antibody treatment, hypothyroidism, dyslipidemia, stroke with left-sided weakness and tingling numbness, asthma, fibroid uterus presented to the ER with complaints of severe neck and back pain, initially 10/10 in intensity, later 7/10. This pain is related to flare-up of multiple sclerosis. She was diagnosed with multiple sclerosis in May this year. In previous episode she also had visual problems including blurry vision, this time she has no vision abnormality. She denies any chest pain, shortness of breath, fever, abdominal pain or any other complaints today. Past medical history: Multiple sclerosis, stroke, hypothyroidism Past surgical history: Thyroid surgery Smoking history: Alcohol: Drugs: Home medications: Metoprolol 50, atorvastatin 40, vitamin D3 87053, aspirin 81, losartan 50, Kesimpta PCP: Dr.Charmaine Panchal Full code Her neck and back pain was managed with baclofen, gabapentin and Tylenol. Initial brain MRI reveals T2 hyperintensity suggesting multiple sclerosis. Neurology was consulted and she was started on IV methylprednisolone. Which improves her symptoms of dizziness and weakness. Repeat brain MRI on 01/24/2025 revealed possible meningioma with mass effect. The patient was prescribed aspirin 81 mg daily, Lipitor 40 mg daily and Medrol Dosepak during discharge, as per Neurology recommendations. The patient is advised to follow up outpatient with PCP, Neurology, director surface transportation and discharge clinic. On the day of discharge patient was hemodynamically stable, was tolerating oral fluid and verbalized understanding of the discharge and treatment plan. Pt is lying on bed General Appearance: Alert, Oriented X3, Cooperative, Mild distress HEENT: Atraumatic, Mucous membranes moist/pink Respiratory: Clear to auscultation, Normal air movement, No added sounds Cardiovascular: Regular rate, Normal S1, Normal S2, No murmurs Abdominal/ : Active bowel sounds, Soft, no distention, no tenderness Extremities: No edema, Normal pulses, No tenderness/swelling Skin: No Significant rash, except past surgical scars Neuro: Normal speech, sensorimotor deficits none Psych/Mental Status: Mental status NL, Mood NL Nurse was there as returned materials inspector during examination Case discussed with , patient and RN. Operations or Procedures Brain MRI on 01/24/2025: 1. Enhancing extra-axial mass along the left frontal convexity, most consistent with a meningioma, with associated mass effect on the anterior left frontal lobe as described above. 2. No enhancement associated with the white matter lesions seen on recent noncontrast enhanced MRI to suggest active demyelination. 3. No other abnormal postcontrast enhancement. Thoracic spine MRI on 01/23/2025: Normal cervical spine MRI on 01/23/2025: No acute abnormality, abnormal cord signal brain MRI on 02/2025:1. No acute infarct, intracranial hemorrhage, mass effect, or hydrocephalus. 2. Scattered T2/FLAIR white matter hyperintensities, the largest in the left frontal lobe measuring 12 x 12 mm. Given the provided history, findings are likely in keeping with demyelinating disease / multiple sclerosis. Renal artery US 01/20/2025: Nonobstructing right renal calculi. No hydronephrosis. CXR On 01/20/2025: No acute abnormality abdomen pelvis CT on 01/20/2025:1. Fecal retention in the colon suggestive of constipation. 2. Postoperative changes of appendectomy. 3. Fibroid uterus. 4. No evidence of bowel obstruction, urinary tract obstruction, or other acute process in the abdomen or pelvis. Condition at Discharge: Stable Final Diagnosis/Problems List #Relapsing and remitting Multiple sclerosis #lactic acidosis #hypertension #dyslipidemia #history of stroke with left-sided weakness #asthma, not under acute exacerbation #slow transit constipation #History of nephrolithiasis #fibroid uterus #Multilevel thoracic spondylosis Discharge Disposition: Home Discharge Instruct/Medications Diet: Cardiac 2g Na,low cholest Activity: No Restrictions, As Tolerated Follow Up/Referral: follow up with outpatient neurology Medications: as per EMR Scheduled Acetaminophen W/ Codeine (Tylenol #4 W/Codeine), 1 TAB PO Q6HPRN, (Reported) Aspirin (Aspirin 81), 81 MG OR DAILY Atorvastatin Calcium (Atorvastatin Calcium), 1 TAB PO DAILYPRN, (Reported) Cholecalciferol (Vitamin D3), 1 CAP PO QWEEKLY, (Reported) Cyclobenzaprine Hcl (Cyclobenzaprine Hcl), 10 MG PO HS Diclofenac Sodium (Topical) (Voltaren Arthritis Pain), 1 GRAMS EX QIDP Hydrocortone (Hydrocortisone 2.5%), 1 APPLIC TOP BID Ibuprofen Micronized (Ibuprofen), 400 MG PO BID Losartan Potassium (Losartan Potassium), 1 TAB PO BID, (Reported) Methylprednisolone (Medrol Dosepak), 4 MG PO UD Pantoprazole Sodium Sesquihydr (Protonix), 40 MG PO DAILY Phenazopyridine HCl (Phenazopyridine Hydrochlo), 200 MG PO TID Sumatriptan Succinate (Imitrex), 2 TAB PO UD Scheduled PRN Acetaminophen (Acetaminophen), 500 MG PO Q6HP PRN Cetirizine HCl (Eql All Day Allergy), 10 MG PO DAILY PRN Meclizine Hcl (Meclizine Hcl), 25 MG PO Q8HPRN PRN Miscellaneous Medications Albuterol Sulfate (Albuterol Sulfate Hfa), INH, (Reported) Hydrocodone-Acetaminophen (Hydrocodone Bitartrate/AC 5-217 mg/10Ml), (Reported) Metoprolol Tartrate (Metoprolol Tartrate), 50 MG PO, (Reported) Discharge Statement: "Patient was advised to return to the ER or call 911 if any headaches, dizziness, shortness of breath, chest pain, abdominal pain, bleeding, fevers, or worsening of medical condition. Patient was counseled about treatment plan, medications, possible side effects, patientverbalized understanding. All questions were answered to the best of my ability. This discharge took greater then 30 minutes in planning, reviewing documentation, counseling the patient, and discussing with other team members." ASSESSMENT ASSESSMENT Assessment Flare up of multiple sclerosis JERRICA SMITH RESIDENT Jan 24, 2025 15:20
[2025-01-24] MEDS ORDERED: methylPREDNISolone SOD SUCC 1,000 MG in SODIUM CHL 0.9% 250 ML IV SCH (22:00)
[2025-01-26] MEDS ORDERED: ERGOCALCIFEROL 50,000 UNIT(1.25MG) CAP PO SCH (08:00)
== END 2025-01-24 15:00 | disposition home or self-care (01) | DRG 43 ==
LOC: ER 10:25 → OVERFLOW 15:19 → EAST 01-21 02:16
PROVIDERS: ADMIT Student in an Organized Health Care Education/Training Program; ATTEND Student in an Organized Health Care Education/Training Program
DX: G35 Multiple sclerosis (principal); E87.20 Acidosis, unspecified; M47.894 Other spondylosis, thoracic region; D25.9 Leiomyoma of uterus, unspecified; Z20.822 Contact with and (suspected) exposure to COVID-19; J45.909 Unspecified asthma, uncomplicated; E78.5 Hyperlipidemia, unspecified; G43.909 Migraine, unspecified, not intractable, without status migrainosus; I10 Essential (primary) hypertension; E03.9 Hypothyroidism, unspecified; K59.01 Slow transit constipation; F17.200 Nicotine dependence, unspecified, uncomplicated; Z79.899 Other long term (current) drug therapy; Z79.1 Long term (current) use of non-steroidal anti-inflammatories (NSAID); Z79.82 Long term (current) use of aspirin; I69.354 Hemiplegia and hemiparesis following cerebral infarction affecting left non-dominant side; Z98.51 Tubal ligation status; Z87.442 Personal history of urinary calculi; Z82.49 Family history of ischemic heart disease and other diseases of the circulatory system
CPT/HCPCS: 36415; 70551; 70553; 71045; 72141; 72146; 74176; 76775; 80048; 80053; 80061; 80307; 81001; 82306; 82607; 83036; 83605; 83735; 84100; 84439; 84443; 85025; 87426; 87804; 94640; 96374; 96375; G0378; J2405